=== PATIENT | male | born 1960 | race African-American/Black ===

== ENCOUNTER 2018-12-15 17:57 | Inpatient (IN) | payer OTHER ==
--- NOTE | 2018-12-16 01:06 | HP ---
CIWA Score - Admission Criteria [facility] Guidelines: Admission for Medically Managed Detox: Requires at least one of the followin. CIWA greater than 12 2. Seizures within the past 24 hours 3. Delirium tremens within the past 24 hours 4. Hallucinations within the past 24 hours 5. Acute intervention needed for co occurring medical disorder 6. Acute intervention needed for co occurring psychiatric disorder 7. Severe withdrawal that cannot be handled at a lower level of care (continued vomiting, continued diarrhea, abnormal vital signs) requiring intravenous medication and/or fluids 8. Admission ROS [facility] Chief Complaint: SEEKING REHAB AFTER DETOX Allergies/Adverse Reactions: Allergies Allergy/AdvReac Type Severity Reaction Status Date / Time No Known Allergies Allergy Verified 12/15/18 23:46 History of Present Illness: 58 Y.O MALE WITH ALCOHOL AND COCAINE DEP HERE FOR DETOX. CLIENT IS REFERRED BY [facility] AFTER BEING HOSPITALIZED FOR C.P AND DETOX. HE HAS SINCE BEEN MEDICALLY CLEARED AND COMPLETED DETOX. DISCHARGE TODAY. DRUG HX/O SINCE THE AGE OF 16. REPORTS DAILY USE OF ALCOHOL, CRACK/COCAINE. LAST USE 1 WEEK AGO. REPORT LONGEST CLEAN TIME 7 YEARS RELAPSING 5 MONTHS AGO. DENIES SEIZURES, BLACKOUTS, DT'S, SI/HI/AVH. LIVES IN [facility] RESIDENTIAL, UNEMPLOYED, DENIES LEGALS Exam Limitations: No Limitations - Ebola screening Have you traveled outside of the country in the last 21 days: No (N) Have you had contact with anyone from an Ebola affected area: No Do you have a fever: No - Review of Systems Constitutional: No Symptoms Reported EENT: reports: Blurred Vision (GLASSES FR BOTH DISTANCE AND READING), Dental Problems (MISSING TEETH) Respiratory: reports: No Symptoms reported Cardiac: reports: No Symptoms Reported GI: reports: No Symptoms Reported : reports: No Symptoms Reported Musculoskeletal: reports: Joint Pain (R/T OA) Integumentary: reports: No Symptoms Reported Neuro: reports: No Symptoms reported Endocrine: reports: No Symptoms Reported Hematology: reports: No Symptoms Reported Psychiatric: reports: Orientated x3, Anxious, Depressed (DENIES SI) Other Systems: Reviewed and Negative Patient History - Patient Medical History Hx Anemia: Yes Hx Asthma: No Hx Chronic Obstructive Pulmonary Disease (COPD): No Hx Cancer: No Hx Cardiac Disorders: No Hx Congestive Heart Failure: Yes Hx Hypertension: Yes Hx Hypercholesterolemia: No Hx Pacemaker: Yes (ICD) HX Cerebrovascular Accident: No Hx Seizures: No Hx Dementia: No Hx Diabetes: No Hx Gastrointestinal Disorders: Yes (GERD) Hx Liver Disease: No Hx Genitourinary Disorders: Yes (BPH) Hx Sexually Transmitted Disorders: No Hx Renal Disease (ESRD): No Hx Thyroid Disease: No Hx Human Immunodeficiency Virus (HIV): No Hx Hepatitis C: No Hx Depression: Yes Hx Suicide Attempt: No Hx Bipolar Disorder: No Hx Schizophrenia: No Other Medical History: DENIES - Patient Surgical History Past Surgical History: Yes Other Surgical History: ICD TO LEFT CHEST WALL Anesthesia Reaction: No - PPD History Previous Implant?: Yes Documented Results: Negative w/o proof Implanted On Prior [facility] Admission?: No PPD to be Administered?: Yes - Smoking Cessation Smoking history: Never smoked Have you smoked in the past 12 months: No - Substance & Tx. History Hx Alcohol Use: Yes Hx Substance Use: Yes Substance Use Type: Alcohol, Cocaine, Marijuana Hx Substance Use Treatment: Yes ([facility]) - Substances abused Alcohol Substance route: Oral Frequency: Daily Amount used: 5 to 10 22 ounces of beer Age of first use: 16 Date of last use: 12/10/18 Crack Substance route: Smoking Frequency: Daily Amount used: 50 to 200 dollars Age of first use: 36 Date of last use: 12/10/18 Marijuana/Hashish Substance route: Smoking Frequency: 3-6 times per week Amount used: 1 bag Age of first use: 18 Date of last use: 12/10/18 Cocaine Substance route: Smoking Frequency: Daily Amount used: 50 to 200 dollars Age of first use: 36 Date of last use: 12/10/18 Family Disease History - Family Disease History Family History: Denies Admission Physical Exam [facility] - Vital Signs Vital Signs: Vital Signs - 24 hr 12/15/18 12/16/18 23:44 00:55 Temperature 98.1 F 98.1 F Pulse Rate 85 85 Respiratory 20 20 Rate Blood Pressure 132/75 132/75 - Physical General Appearance: Yes: Tremorous (FELT), Anxious HEENTM: Yes: EOMI, Normocephalic, Normal Voice, KENNEDY, Pharynx Normal, Other ( EYE GLASSES) Respiratory: Yes: Chest Non-Tender, Lungs Clear, Normal Breath Sounds, No Respiratory Distress, No Accessory Muscle Use Neck: Yes: No masses,lesions,Nodules, Supple, Trachea in good position Breast: Yes: Breasts Symetrical Cardiology: Yes: Regular Rhythm, Regular Rate, S1, S2, Other (L C/E AICD) Abdominal: Yes: Normal Bowel Sounds, Non Tender, Soft Genitourinary: Yes: Within Normal Limits (NO C/O) Back: Yes: Normal Inspection Musculoskeletal: Yes: full range of Motion, Gait Steady Extremities: Yes: Normal Range of Motion, Non-Tender, Tremors Neurological: Yes: Fully Oriented, Alert, Motor Strength 5/5 Integumentary: Yes: Dry, Warm Lymphatic: Yes: Within Normal Limits - Diagnostic (1) Uncomplicated alcohol dependence Current Visit: Yes Status: Acute (2) Cocaine dependence, uncomplicated Current Visit: Yes Status: Acute (3) Cannabis dependence, uncomplicated Current Visit: Yes Status: Acute (4) HTN (hypertension) Current Visit: Yes Status: Chronic Qualifiers: Hypertension type: essential hypertension Qualified Code(s): I10 - Essential (primary) hypertension (5) CHF (congestive heart failure) Current Visit: Yes Status: Chronic Qualifiers: Heart failure chronicity: unspecified (6) Psychiatric disorder Current Visit: Yes Status: Chronic Comment: DEPRESSION (7) AICD (automatic cardioverter/defibrillator) present Current Visit: Yes Status: Acute Comment: LEFT C/W. LAST CHECKED A WEEK AGO (8) History of anemia Current Visit: Yes Status: Chronic Cleared for Admission [facility] - Detox or Rehab Detox Regimen/Protocol: Not Applicable Claeared for Rehab Admission: Yes Urine Drug Screen - Test Device Lot number: [id number] Expiration date: 09/17/20 - Control Is test valid?: Yes - Results Urine drug screen results: BZO-Benzodiazepines Inpatient Rehab Admission - Rehab Decision to Admit Inpatient rehab admission?: Yes - Initial Determination Are CD services needed?: Yes Free of communicable disease: Yes Not in need of hospitalization: Yes - Rehab Admission Criteria Previous failed treatment: Yes Poor recovery environment: Yes Comorbidities: Yes Lacks judgement: No Patient is meeting Inpatient Rehab admission criteria:: Yes
[2018-12-16] MEDS ORDERED: ACETAMINOPHEN 325 MG TABLET (FP) PO PRN (01:13)
[2018-12-16] MEDS ORDERED: P-EPHED 60MG/TRIPROLIDI 2.5MG TABLET PO PRN (01:13)
[2018-12-16] MEDS ORDERED: guaiFENesin 200 MG/10 ML 10 ML UNIT-DOSE CUPS PO PRN (01:13)
[2018-12-16] MEDS ORDERED: hydrOXYzine PAMOATE 50 MG CAPSULE (FP) PO PRN (01:13)
[2018-12-16] MEDS ORDERED: LOPERAMIDE HCL 2 MG CAPSULE PO PRN (01:13)
[2018-12-16] MEDS ORDERED: MENTHOL/PHENOL 1 EACH UD MM PRN (01:13)
[2018-12-16] MEDS ORDERED: MAGNESIUM CITRATE 300 ML BOTTLE PO PRN (01:13)
[2018-12-16] MEDS ORDERED: MAGNESIUM HYDROX 2400MG/30ML ORAL SUSPENSION 30 ML CUP PO PRN (01:13)
[2018-12-16] MEDS: PANTOPRAZOLE 40 MG TABLET (FP) PO SCH (06:07)
[2018-12-16] MEDS: TAMSULOSIN HCL 0.4 MG CAP PO SCH (09:30)
[2018-12-16] MEDS: ASPIRIN 81 MG CHEWABLE TABLETS PO SCH (10:03)
[2018-12-16] MEDS: PRENATAL VITAMINS W/ FOLIC ACID TABLET (FP) PO SCH (10:03)
[2018-12-16] MEDS: MAG HYDROX/AL HYDROX/SIMETH 30 ML UNIT-DOSE CUP PO PRN ×2 (10:05→21:19)
--- NOTE | 2018-12-16 10:34 | EKG ---
Test Reason : Blood Pressure : / mmHG Vent. Rate : 085 BPM Atrial Rate : 085 BPM P-R Int : 154 ms QRS Dur : 104 ms QT Int : 410 ms P-R-T Axes : 071 -06 022 degrees QTc Int : 487 ms NORMAL SINUS RHYTHM POSSIBLE LEFT ATRIAL ENLARGEMENT LEFT VENTRICULAR HYPERTROPHY CANNOT RULE OUT SEPTAL INFARCT , AGE UNDETERMINED ABNORMAL ECG NO PREVIOUS ECGS AVAILABLE Confirmed by EDILMA WORLEY MD ([id number]) on 12/16/2018 10:34:04 AM Referred By: [facility]AO Confirmed By:EDILMA WORLEY MD
[2018-12-16] MEDS: CARVEDILOL 25 MG TABLET (FP) PO SCH (10:40)
[2018-12-16] MEDS: LOSARTAN POTASSIUM 25 MG TABLET PO SCH (10:41)
[2018-12-16] MEDS: SPIRONOLACTONE 25 MG TABLET (FP) PO SCH (10:41)
--- NOTE | 2018-12-16 11:28 | CONSULT ---
[facility] Psychiatric Consult - Data Date of interview: 12/16/18 Admission source: [facility] detox Identifying data: Mr Santa is a 58 years old Black male living as , father of 3 children, unemployed receiving SSD, homeless seeking rehab treatment for alcohol, cocaine and cannabis Substance Abuse History: Reports history of alcohol, cocaine and marijuana. Refer to addiction counselor's summary for further information Medical History: Significant for thalassemia, hypertension, congestive heart failure, GERD, BPH and history of ICD implantation. Psychiatric History: Reports that his first psychiatric contact was in [address] [facility] for inpatient rehab. He was diagnosed with Schizoaffective Disorder and prescribed Seroquel 200 mg/bid and Wellbutrin(dose unknown). Reports receiving outpatient psychiatric treatment at [facility] and he is prescribed Seroquel 200 mg.bid, Buspar 5 mg/bid and Klonopin 0.5 mg/hs. Denies previous psychiatric hospitalization or suicidal attempt. At present, denies experiencing psychotic, manic symptoms, S/H ideations. However, reports feeling depressed, anxious and sleeping poorly Physical/Sexual Abuse/Trauma History: Denies history of emotional, physical or sexual abuse as well as DV relationship. Additional Comment: Reports history of multiple previous misdemear arrests to provide for his habit. No probation currently Mental Status Exam - Mental Status Exam Alert and Oriented to: Time, Place Cognitive Function: Fair Patient Appearance: Disheveled Mood: Depressed, Anxious Affect: Appropriate Patient Behavior: Cooperative Speech Pattern: Clear Voice Loudness: Normal Thought Process: Intact, Goal Oriented Thought Disorder: Not Present Hallucinations: Denies Suicidal Ideation: Denies Homicidal Ideation: Denies Insight/Judgement: Fair Appetite: Good Muscle strength/Tone: Normal Gait/Station: Normal Psychiatric Findings - Problem List ([place] 1, 2,3) (1) Schizoaffective disorder Current Visit: Yes Status: Chronic (2) Substance induced mood disorder Current Visit: Yes Status: Acute (3) Substance-induced sleep disorder Current Visit: Yes Status: Acute (4) Alcohol dependence Current Visit: Yes Status: Acute (5) Cocaine dependence Current Visit: Yes Status: Acute (6) Cannabis dependence Current Visit: Yes Status: Acute (7) CHF (congestive heart failure) Current Visit: Yes Status: Chronic Qualifiers: Heart failure chronicity: unspecified (8) HTN (hypertension) Current Visit: Yes Status: Chronic Qualifiers: Hypertension type: essential hypertension Qualified Code(s): I10 - Essential (primary) hypertension (9) History of anemia Current Visit: Yes Status: Chronic (10) AICD (automatic cardioverter/defibrillator) present Current Visit: Yes Status: Chronic Comment: LEFT C/W. LAST CHECKED A WEEK AGO (11) CHF (congestive heart failure) Current Visit: Yes Status: Chronic - Initial Treatment Plan Initial Treatment Plan: 1) Continue Seroquel 200 mg po BID and Buspar 5 mg po BID. 2) Continue inpatient rehabilitation
[2018-12-16 11:44] LABS: URINE APPEARANCE CLEAR; URINE BILIRUBIN NEGATIVE (NEGATIVE); URINE COLOR YELLOW; URINE GLUCOSE (UA) NEGATIVE (NEGATIVE); URINE KETONE NEGATIVE (NEGATIVE); URINE LEUK ESTERASE NEGATIVE (NEGATIVE); URINE NITRITE NEGATIVE (NEGATIVE); URINE PROTEIN NEGATIVE (NEGATIVE); URINE UROBILINOGEN 0.2 mg/dL (0.2-1.0)
[2018-12-16] MEDS ORDERED: QUEtiapine FUMARATE 200 MG TABLET PO SCH (12:00)
[2018-12-16] MEDS: QUEtiapine FUMARATE 100 MG TABLET (FP) PO SCH ×2 (14:20→21:19)
[2018-12-16] MEDS: busPIRone HCL 5 MG TABLET PO SCH ×2 (14:21→21:19)
[2018-12-16 14:30] LABS: HEMATOCRIT 36.6 % (35.4-49); HEMOGLOBIN 11.3 GM/dL (11.7-16.9); MCH 21.5 pg (25.7-33.7); MEAN CELL VOLUME 69.2 fl (80-96); MEAN PLT VOLUME 9.1 fl (7.5-11.1); PLATELET COUNT 234 K/MM3 (134-434); RBC 5.28 M/mm3 (4.00-5.60); RDW 16.4 % (11.9-15.9); WHITE BLOOD COUNT 4.7 K/mm3 (4.0-10.0)
[2018-12-16 14:37] LABS: ALBUMIN 3.8 g/dl (3.4-5.0); BILIRUBIN,TOTAL 0.2 mg/dL (0.2-1); BLOOD UREA NITROGEN 16.9 mg/dL (7-18); CALCIUM 9.7 mg/dL (8.5-10.1); CREATININE 0.9 mg/dL (0.55-1.3); POTASSIUM 4.4 mmol/L (3.5-5.1)
[2018-12-16] MEDS: ATORVASTATIN CA 40 MG TABLET (FP) PO SCH (21:19)
[2018-12-16] MEDS: THIAMINE HCL 100 MG TABLET (FP) PO SCH (21:19)
[2018-12-17] MEDS: PANTOPRAZOLE 40 MG TABLET (FP) PO SCH (06:20)
[2018-12-17] MEDS: MAG HYDROX/AL HYDROX/SIMETH 30 ML UNIT-DOSE CUP PO PRN ×2 (06:22→21:27)
[2018-12-17] MEDS: TAMSULOSIN HCL 0.4 MG CAP PO SCH (08:47)
[2018-12-17] MEDS ORDERED: PT OWN MED DRAWER 7, Y5N ONE (09:09)
--- NOTE | 2018-12-17 09:41 | PN ---
[facility] Progress Note Note: Patient c/o itching and mild rash to feet and in between toes. Tinactin cream ordered. Vital Signs Temperature 98.6 F 12/17/18 07:03 Pulse Rate 90 12/17/18 07:03 Respiratory Rate 18 12/17/18 07:03 Blood Pressure 116/75 12/17/18 07:03 O2 Sat by Pulse Oximetry (%)
[2018-12-17] MEDS: SPIRONOLACTONE 25 MG TABLET (FP) PO SCH (09:47)
[2018-12-17] MEDS: ASPIRIN 81 MG CHEWABLE TABLETS PO SCH (09:47)
[2018-12-17] MEDS: busPIRone HCL 5 MG TABLET PO SCH ×2 (09:47→21:24)
[2018-12-17] MEDS: PRENATAL VITAMINS W/ FOLIC ACID TABLET (FP) PO SCH (09:47)
[2018-12-17] MEDS: LOSARTAN POTASSIUM 25 MG TABLET PO SCH (09:48)
[2018-12-17] MEDS: CARVEDILOL 25 MG TABLET (FP) PO SCH (09:48)
[2018-12-17] MEDS: QUEtiapine FUMARATE 100 MG TABLET (FP) PO SCH ×2 (09:48→21:24)
[2018-12-17] MEDS: TOLNAFTATE 1% CREAM 15 GM TUBE TP SCH ×2 (10:13→21:24)
--- NOTE | 2018-12-17 14:38 | PN ---
[facility] Progress Note Note: Patient complains of feeling lethargic after taking Seroquel 100 mg in the morning. Requests that morning Seroquel dosage be reduced to 50 mg
[2018-12-17] MEDS ORDERED: BENZOCAINE 20 % GEL TUBE MM PRN (16:28)
[2018-12-17] MEDS: THIAMINE HCL 100 MG TABLET (FP) PO SCH (21:24)
[2018-12-17] MEDS: AMOXICILLIN 500 MG CAPSULE (FP) PO SCH (21:24)
[2018-12-17] MEDS: ATORVASTATIN CA 40 MG TABLET (FP) PO SCH (21:24)
[2018-12-17] MEDS: MELATONIN 5 MG TABLETS PO PRN (21:25)
[2018-12-18] MEDS: AMOXICILLIN 500 MG CAPSULE (FP) PO SCH ×3 (05:52→21:34)
[2018-12-18] MEDS: MAG HYDROX/AL HYDROX/SIMETH 30 ML UNIT-DOSE CUP PO PRN ×3 (05:53→22:07)
[2018-12-18] MEDS: PANTOPRAZOLE 40 MG TABLET (FP) PO SCH (07:00)
[2018-12-18] MEDS: TAMSULOSIN HCL 0.4 MG CAP PO SCH (08:35)
[2018-12-18] MEDS ORDERED: PT OWN MED DRAWER 7, Y5N ONE (08:47)
[2018-12-18] MEDS: ASPIRIN 81 MG CHEWABLE TABLETS PO SCH (09:45)
[2018-12-18] MEDS: QUEtiapine FUMARATE 50 MG TABLET PO SCH (09:45)
[2018-12-18] MEDS: CARVEDILOL 25 MG TABLET (FP) PO SCH (09:46)
[2018-12-18] MEDS: SPIRONOLACTONE 25 MG TABLET (FP) PO SCH (09:46)
[2018-12-18] MEDS: LOSARTAN POTASSIUM 25 MG TABLET PO SCH (09:46)
[2018-12-18] MEDS: PRENATAL VITAMINS W/ FOLIC ACID TABLET (FP) PO SCH (09:46)
[2018-12-18] MEDS: busPIRone HCL 5 MG TABLET PO SCH ×2 (09:46→21:34)
[2018-12-18] MEDS: TOLNAFTATE 1% CREAM 15 GM TUBE TP SCH ×2 (09:47→23:00)
--- NOTE | 2018-12-18 19:45 | PN ---
S Progress Note Note: Late entry: Visit and examination performed on 12/17/18 4:25pm Patient seen for c/o toothache. Ros/cc: Patient c/o right upper molar pain, level 6/10, dull ache. Patient states he has had problem with tooth x months but now feels like tooth is more painful and loose. Patient denies fever, headache, earache and sore throat. PE: + tooth decay, right upper molar intact, +redness and small sore to surrounding gums. No bleeding or exudate present. A/P toothache/infection will order oragel for pain start amoxicillin 500mg tid for potential infection monitor clinically if sx worsen, refer for dental consult
[2018-12-18] MEDS: ATORVASTATIN CA 40 MG TABLET (FP) PO SCH (21:33)
[2018-12-18] MEDS: THIAMINE HCL 100 MG TABLET (FP) PO SCH (21:34)
[2018-12-18] MEDS: QUEtiapine FUMARATE 100 MG TABLET (FP) PO SCH (21:34)
[2018-12-19] MEDS: AMOXICILLIN 500 MG CAPSULE (FP) PO SCH ×3 (06:00→21:28)
[2018-12-19] MEDS: PANTOPRAZOLE 40 MG TABLET (FP) PO SCH (06:00)
[2018-12-19] MEDS: QUEtiapine FUMARATE 50 MG TABLET PO SCH (10:08)
[2018-12-19] MEDS: PRENATAL VITAMINS W/ FOLIC ACID TABLET (FP) PO SCH (10:08)
[2018-12-19] MEDS: ASPIRIN 81 MG CHEWABLE TABLETS PO SCH (10:08)
[2018-12-19] MEDS: SPIRONOLACTONE 25 MG TABLET (FP) PO SCH (10:08)
[2018-12-19] MEDS: busPIRone HCL 5 MG TABLET PO SCH ×2 (10:08→21:29)
[2018-12-19] MEDS: CARVEDILOL 25 MG TABLET (FP) PO SCH (10:08)
[2018-12-19] MEDS: TAMSULOSIN HCL 0.4 MG CAP PO SCH (10:08)
[2018-12-19] MEDS: LOSARTAN POTASSIUM 25 MG TABLET PO SCH (10:08)
[2018-12-19] MEDS: TOLNAFTATE 1% CREAM 15 GM TUBE TP SCH ×2 (10:13→21:32)
[2018-12-19] MEDS: ATORVASTATIN CA 40 MG TABLET (FP) PO SCH (21:28)
[2018-12-19] MEDS: QUEtiapine FUMARATE 100 MG TABLET (FP) PO SCH (21:28)
[2018-12-19] MEDS: THIAMINE HCL 100 MG TABLET (FP) PO SCH (21:29)
[2018-12-19] MEDS ORDERED: PT OWN MED DRAWER 7, Y5N ONE (21:30)
[2018-12-19] MEDS: MAG HYDROX/AL HYDROX/SIMETH 30 ML UNIT-DOSE CUP PO PRN (21:33)
[2018-12-20] MEDS: PANTOPRAZOLE 40 MG TABLET (FP) PO SCH (06:02)
[2018-12-20] MEDS: AMOXICILLIN 500 MG CAPSULE (FP) PO SCH ×3 (06:02→21:20)
[2018-12-20] MEDS: TAMSULOSIN HCL 0.4 MG CAP PO SCH (08:17)
[2018-12-20] MEDS: LOSARTAN POTASSIUM 25 MG TABLET PO SCH (09:32)
[2018-12-20] MEDS: PRENATAL VITAMINS W/ FOLIC ACID TABLET (FP) PO SCH (09:32)
[2018-12-20] MEDS: CARVEDILOL 25 MG TABLET (FP) PO SCH (09:32)
[2018-12-20] MEDS: SPIRONOLACTONE 25 MG TABLET (FP) PO SCH (09:32)
[2018-12-20] MEDS: QUEtiapine FUMARATE 50 MG TABLET PO SCH ×2 (09:36→21:21)
[2018-12-20] MEDS: busPIRone HCL 5 MG TABLET PO SCH ×2 (09:36→21:21)
[2018-12-20] MEDS: ASPIRIN 81 MG CHEWABLE TABLETS PO SCH (09:36)
[2018-12-20] MEDS: TOLNAFTATE 1% CREAM 15 GM TUBE TP SCH ×2 (09:37→21:21)
--- NOTE | 2018-12-20 11:38 | PN ---
[facility] Progress Note Note: patient home medications include metformin. Patient states that it was prescribed several years ago when he was pre-diabetic. He is also on seroquel. At the present time his BGMs are within normal range. Will continue to hold the metformin. If BGMs remain in normal range, will consider d/c fingersticks.
--- NOTE | 2018-12-20 14:15 | PN ---
[facility] Progress Note Note: Patient requests to have Seroquel 50 mg/day & 150 mg/hs. He is currently ordered 50 mg/day & 100 mg/hs. Prior to admission he was on Seroquel 100 mg/ bid. Will reorder Seroquel 50 mg/day & 150 mg/hs
[2018-12-20] MEDS: ARTIFICIAL TEARS (POLYVINYL ALCOHOL) OPTH DROPS OU PRN (16:41)
[2018-12-20] MEDS: THIAMINE HCL 100 MG TABLET (FP) PO SCH (21:20)
[2018-12-20] MEDS: ATORVASTATIN CA 40 MG TABLET (FP) PO SCH (21:20)
[2018-12-21] MEDS: PANTOPRAZOLE 40 MG TABLET (FP) PO SCH (06:22)
[2018-12-21] MEDS: AMOXICILLIN 500 MG CAPSULE (FP) PO SCH ×3 (06:22→21:24)
[2018-12-21] MEDS: TAMSULOSIN HCL 0.4 MG CAP PO SCH (07:43)
[2018-12-21] MEDS: ASPIRIN 81 MG CHEWABLE TABLETS PO SCH (09:43)
[2018-12-21] MEDS: SPIRONOLACTONE 25 MG TABLET (FP) PO SCH (09:43)
[2018-12-21] MEDS: busPIRone HCL 5 MG TABLET PO SCH ×2 (09:43→21:24)
[2018-12-21] MEDS: LOSARTAN POTASSIUM 25 MG TABLET PO SCH (09:43)
[2018-12-21] MEDS: CARVEDILOL 25 MG TABLET (FP) PO SCH (09:43)
[2018-12-21] MEDS: QUEtiapine FUMARATE 50 MG TABLET PO SCH ×2 (09:44→21:24)
[2018-12-21] MEDS: PRENATAL VITAMINS W/ FOLIC ACID TABLET (FP) PO SCH (09:44)
[2018-12-21] MEDS: ARTIFICIAL TEARS (POLYVINYL ALCOHOL) OPTH DROPS OU PRN ×2 (09:44→16:32)
[2018-12-21] MEDS: TOLNAFTATE 1% CREAM 15 GM TUBE TP SCH ×2 (10:20→21:25)
[2018-12-21] MEDS: ATORVASTATIN CA 40 MG TABLET (FP) PO SCH (21:24)
[2018-12-21] MEDS: THIAMINE HCL 100 MG TABLET (FP) PO SCH (21:24)
[2018-12-22] MEDS ORDERED: PT OWN MED DRAWER 7, Y5N ONE ×2 (04:14→08:55)
[2018-12-22] MEDS: PANTOPRAZOLE 40 MG TABLET (FP) PO SCH (05:59)
[2018-12-22] MEDS: AMOXICILLIN 500 MG CAPSULE (FP) PO SCH ×3 (05:59→21:38)
[2018-12-22] MEDS: TAMSULOSIN HCL 0.4 MG CAP PO SCH (08:57)
[2018-12-22] MEDS: QUEtiapine FUMARATE 50 MG TABLET PO SCH ×2 (09:57→21:38)
[2018-12-22] MEDS: SPIRONOLACTONE 25 MG TABLET (FP) PO SCH (09:57)
[2018-12-22] MEDS: ASPIRIN 81 MG CHEWABLE TABLETS PO SCH (09:57)
[2018-12-22] MEDS: TOLNAFTATE 1% CREAM 15 GM TUBE TP SCH ×2 (09:57→21:38)
[2018-12-22] MEDS: LOSARTAN POTASSIUM 25 MG TABLET PO SCH (09:57)
[2018-12-22] MEDS: PRENATAL VITAMINS W/ FOLIC ACID TABLET (FP) PO SCH (09:57)
[2018-12-22] MEDS: CARVEDILOL 25 MG TABLET (FP) PO SCH (09:57)
[2018-12-22] MEDS: busPIRone HCL 5 MG TABLET PO SCH ×2 (09:58→21:37)
[2018-12-22] MEDS: ARTIFICIAL TEARS (POLYVINYL ALCOHOL) OPTH DROPS OU PRN (19:29)
[2018-12-22] MEDS: ATORVASTATIN CA 40 MG TABLET (FP) PO SCH (21:37)
[2018-12-22] MEDS: THIAMINE HCL 100 MG TABLET (FP) PO SCH (21:38)
[2018-12-23] MEDS: AMOXICILLIN 500 MG CAPSULE (FP) PO SCH ×3 (05:51→21:29)
[2018-12-23] MEDS: PANTOPRAZOLE 40 MG TABLET (FP) PO SCH (06:54)
[2018-12-23] MEDS: LOSARTAN POTASSIUM 25 MG TABLET PO SCH (09:26)
[2018-12-23] MEDS: SPIRONOLACTONE 25 MG TABLET (FP) PO SCH (09:26)
[2018-12-23] MEDS: ASPIRIN 81 MG CHEWABLE TABLETS PO SCH (09:26)
[2018-12-23] MEDS: QUEtiapine FUMARATE 50 MG TABLET PO SCH ×2 (09:26→21:30)
[2018-12-23] MEDS: CARVEDILOL 25 MG TABLET (FP) PO SCH (09:26)
[2018-12-23] MEDS ORDERED: PT OWN MED DRAWER 7, Y5N ONE ×2 (09:28→20:40)
[2018-12-23] MEDS: TAMSULOSIN HCL 0.4 MG CAP PO SCH (09:29)
[2018-12-23] MEDS: busPIRone HCL 5 MG TABLET PO SCH ×2 (10:38→21:30)
[2018-12-23] MEDS: TOLNAFTATE 1% CREAM 15 GM TUBE TP SCH ×2 (10:38→22:19)
[2018-12-23] MEDS: PRENATAL VITAMINS W/ FOLIC ACID TABLET (FP) PO SCH (10:38)
[2018-12-23] MEDS: ARTIFICIAL TEARS (POLYVINYL ALCOHOL) OPTH DROPS OU PRN ×2 (14:58→21:32)
[2018-12-23] MEDS: THIAMINE HCL 100 MG TABLET (FP) PO SCH (21:30)
[2018-12-23] MEDS: ATORVASTATIN CA 40 MG TABLET (FP) PO SCH (21:30)
[2018-12-23] MEDS: MELATONIN 5 MG TABLETS PO PRN (21:30)
[2018-12-24] MEDS: PANTOPRAZOLE 40 MG TABLET (FP) PO SCH (06:02)
[2018-12-24] MEDS: AMOXICILLIN 500 MG CAPSULE (FP) PO SCH ×2 (06:02→14:27)
[2018-12-24] MEDS: SPIRONOLACTONE 25 MG TABLET (FP) PO SCH (07:10)
[2018-12-24] MEDS: IBUPROFEN 400 MG TABLET (FP) PO PRN (07:17)
[2018-12-24] MEDS: TAMSULOSIN HCL 0.4 MG CAP PO SCH (08:45)
[2018-12-24] MEDS: QUEtiapine FUMARATE 50 MG TABLET PO SCH ×2 (10:00→21:28)
[2018-12-24] MEDS: ASPIRIN 81 MG CHEWABLE TABLETS PO SCH (10:00)
[2018-12-24] MEDS: busPIRone HCL 5 MG TABLET PO SCH ×2 (10:00→21:28)
[2018-12-24] MEDS: PRENATAL VITAMINS W/ FOLIC ACID TABLET (FP) PO SCH (10:00)
[2018-12-24] MEDS: CARVEDILOL 25 MG TABLET (FP) PO SCH (10:00)
[2018-12-24] MEDS: LOSARTAN POTASSIUM 25 MG TABLET PO SCH (10:01)
[2018-12-24] MEDS: TOLNAFTATE 1% CREAM 15 GM TUBE TP SCH ×2 (10:04→21:29)
[2018-12-24] MEDS: ARTIFICIAL TEARS (POLYVINYL ALCOHOL) OPTH DROPS OU PRN (10:04)
--- NOTE | 2018-12-24 10:22 | PN ---
[facility] Progress Note Note: Patient seen for c/o numbness to right lower leg-barclay area- and LBP. Patient states he has hx of sciatica and treated in past with Gabapentin 100mg tid which he states offered minor relief. Patient states flexeril and lidocaine patch also ineffective for pain relief. Patient denies any recent injuries and/ or falls. Laboratory Tests 12/16/18 12/16/18 12/16/18 06:46 08:00 09:30 WBC RBC Hgb Hct MCV MCH MCHC RDW Plt Count MPV Sodium 138 Potassium 4.4 Chloride 102 Carbon Dioxide 28 Anion Gap 8 BUN 16.9 Creatinine 0.9 Est GFR (CKD-EPI)AfAm 109.50 Est GFR (CKD-EPI)NonAf 94.48 POC Glucometer 98 Random Glucose 97 Calcium 9.7 Total Bilirubin 0.2 AST 30 ALT 26 Alkaline Phosphatase 71 Total Protein 7.0 Albumin 3.8 Urine Color Yellow Urine Appearance Clear Urine pH 8.0 Ur Specific [place] 1.008 L Urine Protein Negative Urine Glucose (UA) Negative Urine Ketones Negative Urine Blood Negative Urine Nitrite Negative Urine Bilirubin Negative Urine Urobilinogen 0.2 Ur Leukocyte Esterase Negative RPR Titer TB (QFT) Incubation TB Test (QFT) Nil TB Test (QFT) Mitogen TB Test (QFT) Antigen TB Test (QFT) TB Positive Criteria 12/16/18 12/16/18 12/16/18 09:30 09:30 09:35 WBC 4.7 RBC 5.28 Hgb 11.3 L Hct 36.6 MCV 69.2 L MCH 21.5 L MCHC 31.0 L RDW 16.4 H Plt Count 234 MPV 9.1 Sodium Potassium Chloride Carbon Dioxide Anion Gap BUN Creatinine Est GFR (CKD-EPI)AfAm Est GFR (CKD-EPI)NonAf POC Glucometer Random Glucose Calcium Total Bilirubin AST ALT Alkaline Phosphatase Total Protein Albumin Urine Color Urine Appearance Urine pH Ur Specific [place] Urine Protein Urine Glucose (UA) Urine Ketones Urine Blood Urine Nitrite Urine Bilirubin Urine Urobilinogen Ur Leukocyte Esterase RPR Titer Nonreactive TB (QFT) Incubation TB Test (QFT) Nil 0.02 TB Test (QFT) Mitogen >10.00 TB Test (QFT) Antigen 0.01 TB Test (QFT) Negative TB Positive Criteria 12/16/18 12/17/18 12/17/18 16:48 06:28 16:43 WBC RBC Hgb Hct MCV MCH MCHC RDW Plt Count MPV Sodium Potassium Chloride Carbon Dioxide Anion Gap BUN Creatinine Est GFR (CKD-EPI)AfAm Est GFR (CKD-EPI)NonAf POC Glucometer 127 114 93 Random Glucose Calcium Total Bilirubin AST ALT Alkaline Phosphatase Total Protein Albumin Urine Color Urine Appearance Urine pH Ur Specific [place] Urine Protein Urine Glucose (UA) Urine Ketones Urine Blood Urine Nitrite Urine Bilirubin Urine Urobilinogen Ur Leukocyte Esterase RPR Titer TB (QFT) Incubation TB Test (QFT) Nil TB Test (QFT) Mitogen TB Test (QFT) Antigen TB Test (QFT) TB Positive Criteria 12/18/18 12/18/18 12/19/18 05:51 16:48 06:00 WBC RBC Hgb Hct MCV MCH MCHC RDW Plt Count MPV Sodium Potassium Chloride Carbon Dioxide Anion Gap BUN Creatinine Est GFR (CKD-EPI)AfAm Est GFR (CKD-EPI)NonAf POC Glucometer 106 102 109 Random Glucose Calcium Total Bilirubin AST ALT Alkaline Phosphatase Total Protein Albumin Urine Color Urine Appearance Urine pH Ur Specific [place] Urine Protein Urine Glucose (UA) Urine Ketones Urine Blood Urine Nitrite Urine Bilirubin Urine Urobilinogen Ur Leukocyte Esterase RPR Titer TB (QFT) Incubation TB Test (QFT) Nil TB Test (QFT) Mitogen TB Test (QFT) Antigen TB Test (QFT) TB Positive Criteria 12/19/18 12/20/18 12/20/18 16:45 06:01 16:39 WBC RBC Hgb Hct MCV MCH MCHC RDW Plt Count MPV Sodium Potassium Chloride Carbon Dioxide Anion Gap BUN Creatinine Est GFR (CKD-EPI)AfAm Est GFR (CKD-EPI)NonAf POC Glucometer 110 106 124 Random Glucose Calcium Total Bilirubin AST ALT Alkaline Phosphatase Total Protein Albumin Urine Color Urine Appearance Urine pH Ur Specific [place] Urine Protein Urine Glucose (UA) Urine Ketones Urine Blood Urine Nitrite Urine Bilirubin Urine Urobilinogen Ur Leukocyte Esterase RPR Titer TB (QFT) Incubation TB Test (QFT) Nil TB Test (QFT) Mitogen TB Test (QFT) Antigen TB Test (QFT) TB Positive Criteria 12/21/18 12/21/18 12/22/18 06:21 16:30 05:59 WBC RBC Hgb Hct MCV MCH MCHC RDW Plt Count MPV Sodium Potassium Chloride Carbon Dioxide Anion Gap BUN Creatinine Est GFR (CKD-EPI)AfAm Est GFR (CKD-EPI)NonAf POC Glucometer 118 123 95 Random Glucose Calcium Total Bilirubin AST ALT Alkaline Phosphatase Total Protein Albumin Urine Color Urine Appearance Urine pH Ur Specific [place] Urine Protein Urine Glucose (UA) Urine Ketones Urine Blood Urine Nitrite Urine Bilirubin Urine Urobilinogen Ur Leukocyte Esterase RPR Titer TB (QFT) Incubation TB Test (QFT) Nil TB Test (QFT) Mitogen TB Test (QFT) Antigen TB Test (QFT) TB Positive Criteria 12/22/18 12/23/18 12/23/18 19:30 05:50 16:41 WBC RBC Hgb Hct MCV MCH MCHC RDW Plt Count MPV Sodium Potassium Chloride Carbon Dioxide Anion Gap BUN Creatinine Est GFR (CKD-EPI)AfAm Est GFR (CKD-EPI)NonAf POC Glucometer 125 111 151 Random Glucose Calcium Total Bilirubin AST ALT Alkaline Phosphatase Total Protein Albumin Urine Color Urine Appearance Urine pH Ur Specific [place] Urine Protein Urine Glucose (UA) Urine Ketones Urine Blood Urine Nitrite Urine Bilirubin Urine Urobilinogen Ur Leukocyte Esterase RPR Titer TB (QFT) Incubation TB Test (QFT) Nil TB Test (QFT) Mitogen TB Test (QFT) Antigen TB Test (QFT) TB Positive Criteria 12/24/18 06:03 WBC RBC Hgb Hct MCV MCH MCHC RDW Plt Count MPV Sodium Potassium Chloride Carbon Dioxide Anion Gap BUN Creatinine Est GFR (CKD-EPI)AfAm Est GFR (CKD-EPI)NonAf POC Glucometer 97 Random Glucose Calcium Total Bilirubin AST ALT Alkaline Phosphatase Total Protein Albumin Urine Color Urine Appearance Urine pH Ur Specific [place] Urine Protein Urine Glucose (UA) Urine Ketones Urine Blood Urine Nitrite Urine Bilirubin Urine Urobilinogen Ur Leukocyte Esterase RPR Titer TB (QFT) Incubation TB Test (QFT) Nil TB Test (QFT) Mitogen TB Test (QFT) Antigen TB Test (QFT) TB Positive Criteria Vital Signs Temperature 98.0 F 12/24/18 08:45 Pulse Rate 99 H 12/24/18 08:45 Respiratory Rate 18 12/24/18 08:45 Blood Pressure 111/77 12/24/18 08:45 O2 Sat by Pulse Oximetry (%) PE: alert and oriented x 3 skin warm and dry +perrla, eoms intact bl + mild tactile tenderness to ls spine ext full rom, no visible edema, amb ad saeid A/P Hx of sciatica peripheral neuropathic pain will continue apap/ibu prn start gabapentin 300mg bid patient advised to follow up with PCP after d/c for ongoing management monitor clinically
[2018-12-24] MEDS: GABAPENTIN 300 MG CAPSULE (FP) PO SCH ×2 (10:45→21:28)
[2018-12-24] MEDS: ATORVASTATIN CA 40 MG TABLET (FP) PO SCH (21:28)
[2018-12-24] MEDS: TETRAHYDROZOLINE HCL EYE DROPS OU SCH (21:28)
[2018-12-24] MEDS: THIAMINE HCL 100 MG TABLET (FP) PO SCH (21:29)
[2018-12-24] MEDS: MELATONIN 5 MG TABLETS PO PRN (22:05)
[2018-12-25] MEDS: PANTOPRAZOLE 40 MG TABLET (FP) PO SCH (06:30)
[2018-12-25] MEDS: SPIRONOLACTONE 25 MG TABLET (FP) PO SCH (06:30)
[2018-12-25] MEDS: TAMSULOSIN HCL 0.4 MG CAP PO SCH (07:42)
[2018-12-25] MEDS ORDERED: PT OWN MED DRAWER 7, Y5N ONE (08:51)
[2018-12-25] MEDS: LOSARTAN POTASSIUM 25 MG TABLET PO SCH (09:30)
[2018-12-25] MEDS: TETRAHYDROZOLINE HCL EYE DROPS OU SCH ×2 (09:30→21:18)
[2018-12-25] MEDS: ASPIRIN 81 MG CHEWABLE TABLETS PO SCH (09:30)
[2018-12-25] MEDS: QUEtiapine FUMARATE 50 MG TABLET PO SCH ×2 (09:31→21:19)
[2018-12-25] MEDS: PRENATAL VITAMINS W/ FOLIC ACID TABLET (FP) PO SCH (09:31)
[2018-12-25] MEDS: CARVEDILOL 25 MG TABLET (FP) PO SCH (09:31)
[2018-12-25] MEDS: TOLNAFTATE 1% CREAM 15 GM TUBE TP SCH ×2 (09:31→21:19)
[2018-12-25] MEDS: GABAPENTIN 300 MG CAPSULE (FP) PO SCH ×2 (09:31→21:18)
[2018-12-25] MEDS: busPIRone HCL 5 MG TABLET PO SCH ×2 (10:20→21:18)
[2018-12-25] MEDS: ATORVASTATIN CA 40 MG TABLET (FP) PO SCH (21:18)
[2018-12-25] MEDS: THIAMINE HCL 100 MG TABLET (FP) PO SCH (21:20)
[2018-12-25] MEDS: MELATONIN 5 MG TABLETS PO PRN (21:20)
[2018-12-26] MEDS: SPIRONOLACTONE 25 MG TABLET (FP) PO SCH (06:28)
[2018-12-26] MEDS: PANTOPRAZOLE 40 MG TABLET (FP) PO SCH (06:30)
[2018-12-26] MEDS: TAMSULOSIN HCL 0.4 MG CAP PO SCH (07:52)
[2018-12-26] MEDS: TOLNAFTATE 1% CREAM 15 GM TUBE TP SCH ×2 (09:11→21:26)
[2018-12-26] MEDS: GABAPENTIN 300 MG CAPSULE (FP) PO SCH ×2 (09:11→21:25)
[2018-12-26] MEDS: PRENATAL VITAMINS W/ FOLIC ACID TABLET (FP) PO SCH (09:11)
[2018-12-26] MEDS: TETRAHYDROZOLINE HCL EYE DROPS OU SCH ×2 (09:11→21:25)
[2018-12-26] MEDS: ASPIRIN 81 MG CHEWABLE TABLETS PO SCH (09:11)
[2018-12-26] MEDS: busPIRone HCL 5 MG TABLET PO SCH ×2 (09:11→21:25)
[2018-12-26] MEDS: QUEtiapine FUMARATE 50 MG TABLET PO SCH ×2 (09:11→21:26)
[2018-12-26] MEDS: CARVEDILOL 25 MG TABLET (FP) PO SCH (09:44)
[2018-12-26] MEDS: LOSARTAN POTASSIUM 25 MG TABLET PO SCH (09:44)
[2018-12-26] MEDS: ATORVASTATIN CA 40 MG TABLET (FP) PO SCH (21:25)
[2018-12-26] MEDS: THIAMINE HCL 100 MG TABLET (FP) PO SCH (21:26)
[2018-12-27] MEDS: SPIRONOLACTONE 25 MG TABLET (FP) PO SCH (05:57)
[2018-12-27] MEDS: PANTOPRAZOLE 40 MG TABLET (FP) PO SCH (06:59)
[2018-12-27] MEDS: TAMSULOSIN HCL 0.4 MG CAP PO SCH (08:45)
[2018-12-27] MEDS: CARVEDILOL 25 MG TABLET (FP) PO SCH (10:10)
[2018-12-27] MEDS: QUEtiapine FUMARATE 50 MG TABLET PO SCH ×2 (10:10→21:42)
[2018-12-27] MEDS: LOSARTAN POTASSIUM 25 MG TABLET PO SCH (10:10)
[2018-12-27] MEDS: TETRAHYDROZOLINE HCL EYE DROPS OU SCH ×2 (10:11→21:41)
[2018-12-27] MEDS: busPIRone HCL 5 MG TABLET PO SCH ×2 (10:11→21:42)
[2018-12-27] MEDS: PRENATAL VITAMINS W/ FOLIC ACID TABLET (FP) PO SCH (10:11)
[2018-12-27] MEDS: ASPIRIN 81 MG CHEWABLE TABLETS PO SCH (10:11)
[2018-12-27] MEDS: GABAPENTIN 300 MG CAPSULE (FP) PO SCH ×2 (10:11→21:42)
[2018-12-27] MEDS: TOLNAFTATE 1% CREAM 15 GM TUBE TP SCH ×2 (10:12→21:45)
--- NOTE | 2018-12-27 15:19 | PN ---
[facility] Progress Note Note: Laboratory Tests 12/16/18 12/16/18 12/16/18 06:46 08:00 09:30 WBC RBC Hgb Hct MCV MCH MCHC RDW Plt Count MPV Sodium 138 Potassium 4.4 Chloride 102 Carbon Dioxide 28 Anion Gap 8 BUN 16.9 Creatinine 0.9 Est GFR (CKD-EPI)AfAm 109.50 Est GFR (CKD-EPI)NonAf 94.48 POC Glucometer 98 Random Glucose 97 Calcium 9.7 Total Bilirubin 0.2 AST 30 ALT 26 Alkaline Phosphatase 71 Total Protein 7.0 Albumin 3.8 Urine Color Yellow Urine Appearance Clear Urine pH 8.0 Ur Specific [place] 1.008 L Urine Protein Negative Urine Glucose (UA) Negative Urine Ketones Negative Urine Blood Negative Urine Nitrite Negative Urine Bilirubin Negative Urine Urobilinogen 0.2 Ur Leukocyte Esterase Negative RPR Titer TB (QFT) Incubation TB Test (QFT) Nil TB Test (QFT) Mitogen TB Test (QFT) Antigen TB Test (QFT) TB Positive Criteria 12/16/18 12/16/18 12/16/18 09:30 09:30 09:35 WBC 4.7 RBC 5.28 Hgb 11.3 L Hct 36.6 MCV 69.2 L MCH 21.5 L MCHC 31.0 L RDW 16.4 H Plt Count 234 MPV 9.1 Sodium Potassium Chloride Carbon Dioxide Anion Gap BUN Creatinine Est GFR (CKD-EPI)AfAm Est GFR (CKD-EPI)NonAf POC Glucometer Random Glucose Calcium Total Bilirubin AST ALT Alkaline Phosphatase Total Protein Albumin Urine Color Urine Appearance Urine pH Ur Specific [place] Urine Protein Urine Glucose (UA) Urine Ketones Urine Blood Urine Nitrite Urine Bilirubin Urine Urobilinogen Ur Leukocyte Esterase RPR Titer Nonreactive TB (QFT) Incubation TB Test (QFT) Nil 0.02 TB Test (QFT) Mitogen >10.00 TB Test (QFT) Antigen 0.01 TB Test (QFT) Negative TB Positive Criteria 12/16/18 12/17/18 12/17/18 16:48 06:28 16:43 WBC RBC Hgb Hct MCV MCH MCHC RDW Plt Count MPV Sodium Potassium Chloride Carbon Dioxide Anion Gap BUN Creatinine Est GFR (CKD-EPI)AfAm Est GFR (CKD-EPI)NonAf POC Glucometer 127 114 93 Random Glucose Calcium Total Bilirubin AST ALT Alkaline Phosphatase Total Protein Albumin Urine Color Urine Appearance Urine pH Ur Specific [place] Urine Protein Urine Glucose (UA) Urine Ketones Urine Blood Urine Nitrite Urine Bilirubin Urine Urobilinogen Ur Leukocyte Esterase RPR Titer TB (QFT) Incubation TB Test (QFT) Nil TB Test (QFT) Mitogen TB Test (QFT) Antigen TB Test (QFT) TB Positive Criteria 12/18/18 12/18/18 12/19/18 05:51 16:48 06:00 WBC RBC Hgb Hct MCV MCH MCHC RDW Plt Count MPV Sodium Potassium Chloride Carbon Dioxide Anion Gap BUN Creatinine Est GFR (CKD-EPI)AfAm Est GFR (CKD-EPI)NonAf POC Glucometer 106 102 109 Random Glucose Calcium Total Bilirubin AST ALT Alkaline Phosphatase Total Protein Albumin Urine Color Urine Appearance Urine pH Ur Specific [place] Urine Protein Urine Glucose (UA) Urine Ketones Urine Blood Urine Nitrite Urine Bilirubin Urine Urobilinogen Ur Leukocyte Esterase RPR Titer TB (QFT) Incubation TB Test (QFT) Nil TB Test (QFT) Mitogen TB Test (QFT) Antigen TB Test (QFT) TB Positive Criteria 12/19/18 12/20/18 12/20/18 16:45 06:01 16:39 WBC RBC Hgb Hct MCV MCH MCHC RDW Plt Count MPV Sodium Potassium Chloride Carbon Dioxide Anion Gap BUN Creatinine Est GFR (CKD-EPI)AfAm Est GFR (CKD-EPI)NonAf POC Glucometer 110 106 124 Random Glucose Calcium Total Bilirubin AST ALT Alkaline Phosphatase Total Protein Albumin Urine Color Urine Appearance Urine pH Ur Specific [place] Urine Protein Urine Glucose (UA) Urine Ketones Urine Blood Urine Nitrite Urine Bilirubin Urine Urobilinogen Ur Leukocyte Esterase RPR Titer TB (QFT) Incubation TB Test (QFT) Nil TB Test (QFT) Mitogen TB Test (QFT) Antigen TB Test (QFT) TB Positive Criteria 12/21/18 12/21/18 12/22/18 06:21 16:30 05:59 WBC RBC Hgb Hct MCV MCH MCHC RDW Plt Count MPV Sodium Potassium Chloride Carbon Dioxide Anion Gap BUN Creatinine Est GFR (CKD-EPI)AfAm Est GFR (CKD-EPI)NonAf POC Glucometer 118 123 95 Random Glucose Calcium Total Bilirubin AST ALT Alkaline Phosphatase Total Protein Albumin Urine Color Urine Appearance Urine pH Ur Specific [place] Urine Protein Urine Glucose (UA) Urine Ketones Urine Blood Urine Nitrite Urine Bilirubin Urine Urobilinogen Ur Leukocyte Esterase RPR Titer TB (QFT) Incubation TB Test (QFT) Nil TB Test (QFT) Mitogen TB Test (QFT) Antigen TB Test (QFT) TB Positive Criteria 12/22/18 12/23/18 12/23/18 19:30 05:50 16:41 WBC RBC Hgb Hct MCV MCH MCHC RDW Plt Count MPV Sodium Potassium Chloride Carbon Dioxide Anion Gap BUN Creatinine Est GFR (CKD-EPI)AfAm Est GFR (CKD-EPI)NonAf POC Glucometer 125 111 151 Random Glucose Calcium Total Bilirubin AST ALT Alkaline Phosphatase Total Protein Albumin Urine Color Urine Appearance Urine pH Ur Specific [place] Urine Protein Urine Glucose (UA) Urine Ketones Urine Blood Urine Nitrite Urine Bilirubin Urine Urobilinogen Ur Leukocyte Esterase RPR Titer TB (QFT) Incubation TB Test (QFT) Nil TB Test (QFT) Mitogen TB Test (QFT) Antigen TB Test (QFT) TB Positive Criteria 12/24/18 12/24/18 12/25/18 06:03 16:40 06:29 WBC RBC Hgb Hct MCV MCH MCHC RDW Plt Count MPV Sodium Potassium Chloride Carbon Dioxide Anion Gap BUN Creatinine Est GFR (CKD-EPI)AfAm Est GFR (CKD-EPI)NonAf POC Glucometer 97 109 154 Random Glucose Calcium Total Bilirubin AST ALT Alkaline Phosphatase Total Protein Albumin Urine Color Urine Appearance Urine pH Ur Specific [place] Urine Protein Urine Glucose (UA) Urine Ketones Urine Blood Urine Nitrite Urine Bilirubin Urine Urobilinogen Ur Leukocyte Esterase RPR Titer TB (QFT) Incubation TB Test (QFT) Nil TB Test (QFT) Mitogen TB Test (QFT) Antigen TB Test (QFT) TB Positive Criteria 12/25/18 12/26/18 12/26/18 16:26 06:30 16:40 WBC RBC Hgb Hct MCV MCH MCHC RDW Plt Count MPV Sodium Potassium Chloride Carbon Dioxide Anion Gap BUN Creatinine Est GFR (CKD-EPI)AfAm Est GFR (CKD-EPI)NonAf POC Glucometer 110 99 96 Random Glucose Calcium Total Bilirubin AST ALT Alkaline Phosphatase Total Protein Albumin Urine Color Urine Appearance Urine pH Ur Specific [place] Urine Protein Urine Glucose (UA) Urine Ketones Urine Blood Urine Nitrite Urine Bilirubin Urine Urobilinogen Ur Leukocyte Esterase RPR Titer TB (QFT) Incubation TB Test (QFT) Nil TB Test (QFT) Mitogen TB Test (QFT) Antigen TB Test (QFT) TB Positive Criteria 12/27/18 05:56 WBC RBC Hgb Hct MCV MCH MCHC RDW Plt Count MPV Sodium Potassium Chloride Carbon Dioxide Anion Gap BUN Creatinine Est GFR (CKD-EPI)AfAm Est GFR (CKD-EPI)NonAf POC Glucometer 96 Random Glucose Calcium Total Bilirubin AST ALT Alkaline Phosphatase Total Protein Albumin Urine Color Urine Appearance Urine pH Ur Specific [place] Urine Protein Urine Glucose (UA) Urine Ketones Urine Blood Urine Nitrite Urine Bilirubin Urine Urobilinogen Ur Leukocyte Esterase RPR Titer TB (QFT) Incubation TB Test (QFT) Nil TB Test (QFT) Mitogen TB Test (QFT) Antigen TB Test (QFT) TB Positive Criteria Vital Signs - 24 hr 12/26/18 12/27/18 12/27/18 20:42 03:30 06:47 Temperature 98.2 F Pulse Rate 87 101 H Respiratory 18 18 20 Rate Blood Pressure 105/70 115/75 12/27/18 09:30 Temperature Pulse Rate 87 Respiratory 18 Rate Blood Pressure 106/64 Discussed BP medication regimen with patient due to his concern of low BP. Patient reports he was taking only Lisinopril as outpatient. ROS denies CP, SOB and headache. Mild dizziness in am. PE alert and oriented x 3 skin warm and dry +perrla, eoms intact bl ext full rom, no visible edema A/P: HTN Hx of CHF dizziness episode BP trend has been low but stable will continue aldactone and coreg as ordered d/c cozaar monitor clinically
[2018-12-27] MEDS ORDERED: PT OWN MED DRAWER 7, Y5N ONE (20:10)
[2018-12-27] MEDS: ATORVASTATIN CA 40 MG TABLET (FP) PO SCH (21:42)
[2018-12-27] MEDS: THIAMINE HCL 100 MG TABLET (FP) PO SCH (21:42)
[2018-12-27] MEDS: MELATONIN 5 MG TABLETS PO PRN (21:43)
[2018-12-28] MEDS: SPIRONOLACTONE 25 MG TABLET (FP) PO SCH (05:54)
[2018-12-28] MEDS: IBUPROFEN 400 MG TABLET (FP) PO PRN (05:55)
[2018-12-28] MEDS: PANTOPRAZOLE 40 MG TABLET (FP) PO SCH (06:32)
[2018-12-28] MEDS: TOLNAFTATE 1% CREAM 15 GM TUBE TP SCH ×2 (09:54→21:51)
[2018-12-28] MEDS: PRENATAL VITAMINS W/ FOLIC ACID TABLET (FP) PO SCH (09:54)
[2018-12-28] MEDS: TETRAHYDROZOLINE HCL EYE DROPS OU SCH ×2 (09:54→21:50)
[2018-12-28] MEDS: ASPIRIN 81 MG CHEWABLE TABLETS PO SCH (09:54)
[2018-12-28] MEDS: GABAPENTIN 300 MG CAPSULE (FP) PO SCH ×2 (09:54→21:50)
[2018-12-28] MEDS: busPIRone HCL 5 MG TABLET PO SCH ×2 (09:55→21:50)
[2018-12-28] MEDS: CARVEDILOL 25 MG TABLET (FP) PO SCH (09:55)
[2018-12-28] MEDS: TAMSULOSIN HCL 0.4 MG CAP PO SCH (09:55)
[2018-12-28] MEDS: QUEtiapine FUMARATE 50 MG TABLET PO SCH ×2 (09:55→21:50)
[2018-12-28] MEDS: THIAMINE HCL 100 MG TABLET (FP) PO SCH (21:50)
[2018-12-28] MEDS: ATORVASTATIN CA 40 MG TABLET (FP) PO SCH (21:50)
[2018-12-28] MEDS: MELATONIN 5 MG TABLETS PO PRN (21:52)
[2018-12-29] MEDS: SPIRONOLACTONE 25 MG TABLET (FP) PO SCH (05:53)
[2018-12-29] MEDS: PANTOPRAZOLE 40 MG TABLET (FP) PO SCH (06:38)
[2018-12-29] MEDS: TAMSULOSIN HCL 0.4 MG CAP PO SCH (08:14)
[2018-12-29] MEDS: GABAPENTIN 300 MG CAPSULE (FP) PO SCH ×2 (10:14→21:22)
[2018-12-29] MEDS: ASPIRIN 81 MG CHEWABLE TABLETS PO SCH (10:14)
[2018-12-29] MEDS: QUEtiapine FUMARATE 50 MG TABLET PO SCH ×2 (10:14→21:23)
[2018-12-29] MEDS: busPIRone HCL 5 MG TABLET PO SCH ×2 (10:14→21:23)
[2018-12-29] MEDS: PRENATAL VITAMINS W/ FOLIC ACID TABLET (FP) PO SCH (10:14)
[2018-12-29] MEDS: CARVEDILOL 25 MG TABLET (FP) PO SCH (10:15)
[2018-12-29] MEDS: TETRAHYDROZOLINE HCL EYE DROPS OU SCH ×2 (10:16→21:35)
[2018-12-29] MEDS: TOLNAFTATE 1% CREAM 15 GM TUBE TP SCH ×2 (10:16→21:34)
--- NOTE | 2018-12-29 12:12 | DS ---
[facility] Rehab Discharge Summary - [facility] Rehab Discharge Summary Admission Date: 12/16/18 Discharge Date: 12/30/18 - History Present History: Alcohol dependence, Cannabis dependence, Cocaine dependence Pertinent Past History: 58 Y.O MALE WITH ALCOHOL AND COCaine use. CLIENT IS REFERRED BY [facility] AFTER BEING HOSPITALIZED FOR C.P AND DETOX. DRUG HX/O SINCE THE AGE OF 16. REPORTS DAILY USE OF ALCOHOL, CRACK/COCAINE. LAST USE 1 WEEK AGO. REPORT LONGEST CLEAN TIME 7 YEARS RELAPSING 5 MONTHS AGO. DENIES SEIZURES, BLACKOUTS, DT'S, SI/HI/AVH. LIVES IN [facility], UNEMPLOYED, DENIES LEGALS - Discharge Physical Exam Vital Signs: Vital Signs Temperature 98.4 F 12/29/18 10:00 Pulse Rate 89 12/29/18 10:00 Respiratory Rate 18 12/29/18 10:00 Blood Pressure 118/75 12/29/18 10:00 O2 Sat by Pulse Oximetry (%) 12/30: 114/81, HR-91, Temp-98.6 - Treatment Discharge Condition: Outpatient referral accepted (Medically stable for discharge; has accepted referral back to [facility] for housing and aftercare.) Hospital Course: PATIENT WAS ADHERENT TO TREATMENT PLAN AND MEDICATION REGIMEN. WAS SEEN BY MEDICAL PROVIDER DURING HIS STAY IN REHAB FOR FOOT, RASH, REVIEW OF BP MEDICATIONS, NUMBNESS IN LEGS (PRIOR HX) ALL MEDICAL PROBLEMS ADDRESSED. HE WAS SEEN BY PSYCHIATRIC PROVIDER SEVERAL TIMES FOR ADJUSTMENT OF SEROQUEL. PATIENT IS MEDICALLY STABLE FOR DISCHARGE. - Medication Discharge Medications: Ambulatory Orders Buspirone HCl [Buspar -] 5 mg PO BID 12/15/18 Clonazepam [Klonopin] 0.5 mg PO HS 12/15/18 Metformin HCl [Glucophage] 500 mg PO DAILY 12/15/18 Quetiapine Fumarate [Seroquel] 200 mg PO BID 12/15/18 Aspirin [ASA -] 81 mg PO DAILY #14 tab.chew 12/29/18 Atorvastatin Ca [Lipitor] 1 tablet PO HS #14 tablet 12/29/18 Carvedilol [Coreg -] 25 mg PO DAILY #14 tablet 12/29/18 Losartan Potassium [Cozaar -] 25 mg PO DAILY #14 tablet 12/29/18 Pantoprazole Sodium [Protonix -] 1 tablet PO DAILY #14 tablet.ec 09/11/19 Spironolactone 25 mg PO DAILY #14 tablet 12/29/18 Tamsulosin HCl [Flomax] 0.4 mg PO DAILY #14 capsule 12/29/18 - Medication-Assisted Treatment (MAT) Medication-Assisted Treatment (MAT): No - Discharge Instructions Diet, activity, other medical instructions: Diet: TOLERATED Activity: TOLERATED Other medical instructions: PLEASE FOLLOW UP WITH AFTERCARE REFERRAL AND MEDICAL REFERRAL. - Diagnosis (1) Alcohol dependence Current Visit: Yes Status: Chronic Qualifiers: Substance use status: uncomplicated Qualified Code(s): F10.20 - Alcohol dependence, uncomplicated (2) Cannabis dependence Current Visit: Yes Status: Chronic (3) Cocaine dependence Current Visit: Yes Status: Chronic Qualifiers: Substance use status: uncomplicated Qualified Code(s): F14.20 - Cocaine dependence, uncomplicated - Follow-up Referral Minutes to complete discharge: 20 - AMA Did Patient Leave Against Medical Advice: No
[2018-12-29] MEDS: ATORVASTATIN CA 40 MG TABLET (FP) PO SCH (21:24)
[2018-12-29] MEDS: MELATONIN 5 MG TABLETS PO PRN (21:24)
[2018-12-29] MEDS: THIAMINE HCL 100 MG TABLET (FP) PO SCH (21:35)
[2018-12-30] MEDS: PANTOPRAZOLE 40 MG TABLET (FP) PO SCH (06:09)
[2018-12-30] MEDS: SPIRONOLACTONE 25 MG TABLET (FP) PO SCH (06:10)
[2018-12-30 06:58] VITALS: BP 110/70; PULSE 95; TEMP 97.9
[2018-12-30] MEDS: TAMSULOSIN HCL 0.4 MG CAP PO SCH (08:02)
[2018-12-30] MEDS ORDERED: PT OWN MED DRAWER 7, Y5N ONE (09:08)
[2018-12-30] MEDS: CARVEDILOL 25 MG TABLET (FP) PO SCH (09:09)
[2018-12-30] MEDS: busPIRone HCL 5 MG TABLET PO SCH (09:09)
[2018-12-30] MEDS: GABAPENTIN 300 MG CAPSULE (FP) PO SCH (09:09)
[2018-12-30] MEDS: ASPIRIN 81 MG CHEWABLE TABLETS PO SCH (09:09)
[2018-12-30] MEDS: TOLNAFTATE 1% CREAM 15 GM TUBE TP SCH (09:09)
[2018-12-30] MEDS: PRENATAL VITAMINS W/ FOLIC ACID TABLET (FP) PO SCH (09:09)
[2018-12-30] MEDS: QUEtiapine FUMARATE 50 MG TABLET PO SCH (09:09)
[2018-12-30] MEDS: ARTIFICIAL TEARS (POLYVINYL ALCOHOL) OPTH DROPS OU PRN (09:09)
== END 2018-12-30 09:16 | disposition home or self-care (01) | DRG 895 ==
LOC: YASAS 17:57 → Y3W 12-16 01:11
PROVIDERS: ADMIT Neuromusculoskeletal Medicine & OMM; ATTEND Neuromusculoskeletal Medicine & OMM
PROC: HZ42ZZZ Group Counseling for Substance Abuse Treatment, Cognitive-Behavioral (ICD-10-PCS; principal; 2018-12-16)
DX: F10.20 Alcohol dependence, uncomplicated (principal); F14.20 Cocaine dependence, uncomplicated; F19.282 Other psychoactive substance dependence with psychoactive substance-induced sleep disorder; F12.20 Cannabis dependence, uncomplicated; F25.9 Schizoaffective disorder, unspecified; F19.24 Other psychoactive substance dependence with psychoactive substance-induced mood disorder; I11.0 Hypertensive heart disease with heart failure; I50.9 Heart failure, unspecified; G62.9 Polyneuropathy, unspecified; K04.7 Periapical abscess without sinus; K02.9 Dental caries, unspecified; N40.0 Benign prostatic hyperplasia without lower urinary tract symptoms; K21.9 Gastro-esophageal reflux disease without esophagitis; D64.9 Anemia, unspecified; Z95.810 Presence of automatic (implantable) cardiac defibrillator
CPT/HCPCS: 36415; 80053; 81003; 82962; 85027; 86480; 86593; 93005; 93010

== ENCOUNTER 2019-03-11 17:21 | Inpatient (IN) | payer OTHER ==
[2019-03-11 18:05] VITALS: BMI 28.5
--- NOTE | 2019-03-11 21:39 | HP ---
CIWA Score - Admission Criteria OASAS Guidelines: Admission for Medically Managed Detox: Requires at least one of the followin. CIWA greater than 12 2. Seizures within the past 24 hours 3. Delirium tremens within the past 24 hours 4. Hallucinations within the past 24 hours 5. Acute intervention needed for co occurring medical disorder 6. Acute intervention needed for co occurring psychiatric disorder 7. Severe withdrawal that cannot be handled at a lower level of care (continued vomiting, continued diarrhea, abnormal vital signs) requiring intravenous medication and/or fluids 8. Admitting History and Physical - Smoking History Smoking history: Never smoked Have you smoked in the past 12 months: No - Alcohol/Substance Use Hx Alcohol Use: Yes Admission ROS BHS - HPI Chief Complaint: CLIENT SEEKING REHAB AFTER DETOX FOR ALCOHOL Allergies/Adverse Reactions: Allergies Allergy/AdvReac Type Severity Reaction Status Date / Time No Known Allergies Allergy Verified 03/11/19 17:54 History of Present Illness: REFERRED BY [facility] FOR INPATIENT REHAB AFTER BEING PRESENTED THERE FOR REHAB. CLIENT IS KNOWN TO THIS PROGRAM. LAST HERE 11/2018. STATES HE RELAPSE APPROX 2 MONTHS AFTER DC. DC FROM [facility] TODAY AFTER COMPLETING ALCOHOL DETOX AT [facility] AND TRANFERRED THERE FOR REHAB. AND BEING MEDICALLY CLEARED FOR C.P. ON ADMISSION. CLIENT REPORTS DAILY ALCOHOL INTAKE. LAST USE 6 DAYS. 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 HE ALSO REPORTS COCAINE ABUSE. LONGEST CLEAN TIME 10 YEARS. MOST RECENT CLEAN TIME 3 MONTHS RELAPSING ON 01/2019. HOMELESS, UNEMPLOYED, DENIES LEGALS Exam Limitations: No Limitations - Ebola screening Have you traveled outside of the country in the last 21 days: No (N) Have you had contact with anyone from an Ebola affected area: No Do you have a fever: No - Review of Systems Constitutional: No Symptoms Reported EENT: reports: Other (MISSING TEETH) Respiratory: reports: No Symptoms reported Cardiac: reports: No Symptoms Reported GI: reports: No Symptoms Reported : reports: No Symptoms Reported Musculoskeletal: reports: No Symptoms Reported Integumentary: reports: No Symptoms Reported Neuro: reports: No Symptoms reported Endocrine: reports: No Symptoms Reported Hematology: reports: No Symptoms Reported Psychiatric: reports: Orientated x3, Anxious, Depressed (DENIES SI) Other Systems: Reviewed and Negative Patient History - Patient Medical History Hx Anemia: Yes Hx Asthma: No Hx Chronic Obstructive Pulmonary Disease (COPD): No Hx Cancer: No Hx Cardiac Disorders: No Hx Congestive Heart Failure: Yes Hx Hypertension: Yes Hx Hypercholesterolemia: No Hx Pacemaker: Yes (ICD) HX Cerebrovascular Accident: No Hx Seizures: No Hx Dementia: No Hx Diabetes: No Hx Gastrointestinal Disorders: Yes (GERD) Hx Liver Disease: No Hx Genitourinary Disorders: Yes (BPH) Hx Sexually Transmitted Disorders: No Hx Renal Disease (ESRD): No Hx Thyroid Disease: No Hx Human Immunodeficiency Virus (HIV): No Hx Hepatitis C: No Hx Depression: Yes Hx Suicide Attempt: No Hx Bipolar Disorder: No Hx Schizophrenia: No - Patient Surgical History Past Surgical History: Yes Other Surgical History: ICD TO LEFT CHEST WALL Anesthesia Reaction: No - PPD History Previous Implant?: Yes Documented Results: Negative w/o proof Implanted On Prior [facility] Admission?: No Date: 12/16/18 Results: NEG TB GOLD PPD to be Administered?: No - Smoking Cessation Smoking history: Never smoked Have you smoked in the past 12 months: No Initiated information on smoking cessation: No - Substance & Tx. History Hx Alcohol Use: Yes Hx Substance Use: Yes Substance Use Type: Alcohol, Cocaine Hx Substance Use Treatment: Yes ([facility]) - Substances abused Alcohol Substance route: Oral Frequency: Daily Amount used: 5 to 10 (22 oz) of beer Age of first use: 16 Date of last use: 03/05/19 Cocaine Substance route: Smoking Frequency: Daily Amount used: 50 to 200 dollars Age of first use: 36 Date of last use: 03/05/19 Crack Substance route: Smoking Frequency: Daily Amount used: 50 to 200 dollars Age of first use: 36 Date of last use: 03/05/19 Marijuana/Hashish Substance route: Smoking Frequency: 3-6 times per week Amount used: 1 bag Age of first use: 18 Date of last use: 12/10/18 Admission Physical Exam BHS - Vital Signs Vital Signs: Vital Signs - 24 hr 03/11/19 03/11/19 18:00 18:13 Temperature 98.2 F 98.2 F Pulse Rate 98 H 98 H Respiratory 16 16 Rate Blood Pressure 132/67 132/67 - Physical General Appearance: Yes: Tremorous HEENTM: Yes: EOMI, Normocephalic, Normal Voice, KENNEDY, Pharynx Normal Respiratory: Yes: Chest Non-Tender, Lungs Clear, Normal Breath Sounds, No Respiratory Distress, No Accessory Muscle Use Neck: Yes: No masses,lesions,Nodules, Supple, Trachea in good position Breast: Yes: Breast Exam Deferred Cardiology: Yes: Regular Rhythm, Regular Rate, S1, S2, Other (left c/w ppm) Abdominal: Yes: Normal Bowel Sounds, Non Tender, Soft Genitourinary: Yes: Within Normal Limits Back: Yes: Normal Inspection Musculoskeletal: Yes: Gait Steady Extremities: Yes: Normal Capillary Refill, Normal Range of Motion, Non-Tender, Tremors Neurological: Yes: Fully Oriented, Alert, Motor Strength 5/5 Integumentary: Yes: Dry, Warm Lymphatic: Yes: Within Normal Limits - Diagnostic (1) GERD (gastroesophageal reflux disease) Current Visit: Yes Status: Chronic (2) BPH (benign prostatic hyperplasia) Current Visit: Yes Status: Chronic (3) Cocaine dependence, uncomplicated Current Visit: Yes Status: Acute (4) Substance induced mood disorder Current Visit: Yes Status: Suspected (5) Substance-induced sleep disorder Current Visit: No Status: Acute (6) Uncomplicated alcohol dependence Current Visit: Yes Status: Acute (7) AICD (automatic cardioverter/defibrillator) present Current Visit: Yes Status: Chronic Comment: LEFT C/W. LAST CHECKED THIS WEEK (8) CHF (congestive heart failure) Current Visit: Yes Status: Chronic Qualifiers: Heart failure chronicity: unspecified (9) HTN (hypertension) Current Visit: Yes Status: Chronic Qualifiers: Hypertension type: essential hypertension Qualified Code(s): I10 - Essential (primary) hypertension (10) History of anemia Current Visit: Yes Status: Chronic Cleared for Admission BHS - Detox or Rehab Detox Regimen/Protocol: Not Applicable Claeared for Rehab Admission: Yes Breathalyzer - Breathalyzer Breathalyzer: 0 Urine Drug Screen - Test Device Lot number: [id number] Expiration date: 11/17/20 - Control Is test valid?: Yes - Results Drug screen NEGATIVE: No Urine drug screen results: OSWALDO-Cocaine, BZO-Benzodiazepines Inpatient Rehab Admission - Rehab Decision to Admit Inpatient rehab admission?: Yes - Initial Determination Are CD services needed?: Yes Free of communicable disease: Yes Not in need of hospitalization: Yes - Rehab Admission Criteria Previous failed treatment: Yes Poor recovery environment: Yes Comorbidities: Yes Lacks judgement: No Patient is meeting Inpatient Rehab admission criteria:: Yes
[2019-03-11] MEDS ORDERED: MAGNESIUM CITRATE 300 ML BOTTLE PO PRN (21:51)
[2019-03-11] MEDS ORDERED: MENTHOL/PHENOL 1 EACH UD MM PRN (21:51)
[2019-03-11] MEDS ORDERED: MAGNESIUM HYDROX 2400MG/30ML ORAL SUSPENSION 30 ML CUP PO PRN (21:51)
[2019-03-11] MEDS ORDERED: IBUPROFEN 400 MG TABLET (FP) PO PRN (21:51)
[2019-03-11] MEDS ORDERED: P-EPHED 60MG/TRIPROLIDI 2.5MG TABLET PO PRN (21:51)
[2019-03-11] MEDS ORDERED: ACETAMINOPHEN 325 MG TABLET (FP) PO PRN (21:51)
[2019-03-11] MEDS ORDERED: guaiFENesin 200 MG/10 ML 10 ML UNIT-DOSE CUPS PO PRN (21:51)
[2019-03-11] MEDS ORDERED: MAG HYDROX/AL HYDROX/SIMETH 30 ML UNIT-DOSE CUP PO PRN (21:51)
[2019-03-11] MEDS ORDERED: LOPERAMIDE HCL 2 MG CAPSULE PO PRN (21:51)
[2019-03-11] MEDS ORDERED: MELATONIN 5 MG TABLETS PO PRN (22:00)
[2019-03-11] MEDS ORDERED: PNEUMOC 13-VAL CONJ-DIP CRM/PF 0.5 ML DISP.SYRIN IM ONE (22:30)
[2019-03-11] MEDS: THIAMINE HCL 100 MG TABLET (FP) PO SCH (23:21)
[2019-03-12] MEDS: PRENATAL VITAMINS W/ FOLIC ACID TABLET (FP) PO SCH (09:25)
[2019-03-12] MEDS: ASPIRIN 81 MG CHEWABLE TABLETS PO SCH (09:25)
[2019-03-12] MEDS: FLU VACCINE QUAD 60 MCG/0.5 ML (MDV 19-20) IM ONE ×2 (11:18→11:21)
[2019-03-12] MEDS ORDERED: PNEUMOCOCCAL 23 VACCINE 0.5 ML VIAL IM ONE (12:00)
[2019-03-12] MEDS: SACUBITRIL/VALSARTAN 97 MG-103 MG TABLET PO SCH ×2 (16:00→23:04)
[2019-03-12 16:22] LABS: HEMATOCRIT 36.3 % (35.4-49); HEMOGLOBIN 11.4 GM/dL (11.7-16.9); MCH 21.5 pg (25.7-33.7); MCHC 31.4 g/dl (32.0-35.9); MEAN CELL VOLUME 68.6 fl (80-96); MEAN PLT VOLUME 8.8 fl (7.5-11.1); PLATELET COUNT 223 K/MM3 (134-434); RBC 5.29 M/mm3 (4.00-5.60); RDW 16.1 % (11.9-15.9); WHITE BLOOD COUNT 4.2 K/mm3 (4.0-10.0)
[2019-03-12 16:28] LABS: PH,URINE 6.5 (5.0-8.0); URINE APPEARANCE CLEAR; URINE BILIRUBIN NEGATIVE (NEGATIVE); URINE COLOR YELLOW; URINE GLUCOSE (UA) NEGATIVE (NEGATIVE); URINE KETONE NEGATIVE (NEGATIVE); URINE LEUK ESTERASE NEGATIVE (NEGATIVE); URINE NITRITE NEGATIVE (NEGATIVE); URINE PROTEIN NEGATIVE (NEGATIVE); URINE UROBILINOGEN 0.2 mg/dL (0.2-1.0)
[2019-03-12 16:29] LABS: ALBUMIN 3.7 g/dl (3.4-5.0); BILIRUBIN,TOTAL 0.2 mg/dL (0.2-1); BLOOD UREA NITROGEN 21.9 mg/dL (7-18); CALCIUM 8.8 mg/dL (8.5-10.1); CREATININE 1.1 mg/dL (0.55-1.3); POTASSIUM 4.4 mmol/L (3.5-5.1); TOT PROT 6.8 g/dl (6.4-8.2)
--- NOTE | 2019-03-12 17:51 | EKG ---
Test Reason : Blood Pressure : / mmHG Vent. Rate : 079 BPM Atrial Rate : 079 BPM P-R Int : 156 ms QRS Dur : 096 ms QT Int : 422 ms P-R-T Axes : 064 -18 -09 degrees QTc Int : 483 ms NORMAL SINUS RHYTHM VOLTAGE CRITERIA FOR LEFT VENTRICULAR HYPERTROPHY CANNOT RULE OUT SEPTAL INFARCT (CITED ON OR BEFORE 16-DEC-2018) ABNORMAL ECG WHEN COMPARED WITH ECG OF 16-DEC-2018 01:29, NO SIGNIFICANT CHANGE WAS FOUND Confirmed by MD Herman, Velasquez ([id number]) on 03/12/2019 5:51:14 PM Referred By: Mayela Godfrey Confirmed By:Velasquez Sutton MD
[2019-03-12] MEDS: ATORVASTATIN CA 40 MG TABLET (FP) PO SCH (21:03)
[2019-03-12] MEDS: hydrOXYzine PAMOATE 50 MG CAPSULE (FP) PO PRN (21:04)
[2019-03-12] MEDS: THIAMINE HCL 100 MG TABLET (FP) PO SCH (21:04)
[2019-03-13] MEDS: PRENATAL VITAMINS W/ FOLIC ACID TABLET (FP) PO SCH (10:01)
[2019-03-13] MEDS: ASPIRIN 81 MG CHEWABLE TABLETS PO SCH (10:01)
[2019-03-13] MEDS: SACUBITRIL/VALSARTAN 97 MG-103 MG TABLET PO SCH ×2 (10:02→21:04)
[2019-03-13] MEDS: ATORVASTATIN CA 40 MG TABLET (FP) PO SCH (21:04)
[2019-03-13] MEDS: THIAMINE HCL 100 MG TABLET (FP) PO SCH (21:04)
[2019-03-13] MEDS: hydrOXYzine PAMOATE 50 MG CAPSULE (FP) PO PRN (21:05)
[2019-03-14] MEDS: SACUBITRIL/VALSARTAN 97 MG-103 MG TABLET PO SCH ×2 (10:16→21:08)
[2019-03-14] MEDS: ASPIRIN 81 MG CHEWABLE TABLETS PO SCH (10:16)
[2019-03-14] MEDS: PRENATAL VITAMINS W/ FOLIC ACID TABLET (FP) PO SCH (10:16)
[2019-03-14] MEDS ORDERED: NITROGLYCERIN SUBLINGUAL 1/200 0.3 MG BTL SL PRN (11:20)
--- NOTE | 2019-03-14 11:37 | PN ---
[facility] Progress Note Note: Pt is a 58 y/o male admitted on 03/11/[address] [place], [place] [id number] from [facility]. LELE of alcohol,crack and marijuana with hx of pace maker, GERD and HTN. Pt reports he was admitted to [facility] for chest pain as a result of alcohol intoxication for 2-3 days and referred to [facility] afterwards but no rehab was available so was referred here to [facility]. Pt requesting to see psych to restart seroquel and also review medications. Pt reports he has a primary care/PCP, Dr. Biggs 2 [facility] on [address] [place] [address]. reports he has cardiology care with [facility] on [address] [place] [address]. Vital Signs - 24 hr 03/14/19 03/14/19 03:30 06:53 Temperature 98.0 F Pulse Rate 87 Respiratory 18 18 Rate Blood Pressure 97/70 Laboratory Tests 03/12/19 03/12/19 03/12/19 10:00 10:00 15:11 WBC 4.2 RBC 5.29 Hgb 11.4 L Hct 36.3 MCV 68.6 L MCH 21.5 L MCHC 31.4 L RDW 16.1 H Plt Count 223 MPV 8.8 Sodium 141 Potassium 4.4 Chloride 108 H Carbon Dioxide 28 Anion Gap 4 L BUN 21.9 H Creatinine 1.1 Est GFR (CKD-EPI)AfAm 85.91 Est GFR (CKD-EPI)NonAf 74.12 Random Glucose 91 Calcium 8.8 Total Bilirubin 0.2 AST 32 ALT 30 Alkaline Phosphatase 79 Total Protein 6.8 Albumin 3.7 Urine Color Yellow Urine Appearance Clear Urine pH 6.5 Ur Specific [place] 1.031 Urine Protein Negative Urine Glucose (UA) Negative Urine Ketones Negative Urine Blood Negative Urine Nitrite Negative Urine Bilirubin Negative Urine Urobilinogen 0.2 Ur Leukocyte Esterase Negative Alert o x 3 nad oob ambulating with steady gait A/P Hx LELE Increase po fluids as tolerated psych consult ordered. Medications/labs reviewed.
[2019-03-14] MEDS ORDERED: NITROGLYCERIN SUBLINGUAL 1/150 0.4 MG TAB SL PRN (11:48)
[2019-03-14] MEDS: THIAMINE HCL 100 MG TABLET (FP) PO SCH (21:08)
[2019-03-14] MEDS: ATORVASTATIN CA 40 MG TABLET (FP) PO SCH (21:08)
[2019-03-14] MEDS: hydrOXYzine PAMOATE 50 MG CAPSULE (FP) PO PRN (21:10)
[2019-03-15] MEDS: SACUBITRIL/VALSARTAN 97 MG-103 MG TABLET PO SCH ×2 (09:54→21:09)
[2019-03-15] MEDS: PRENATAL VITAMINS W/ FOLIC ACID TABLET (FP) PO SCH (09:54)
[2019-03-15] MEDS: ASPIRIN 81 MG CHEWABLE TABLETS PO SCH (09:54)
--- NOTE | 2019-03-15 14:35 | CONSULT ---
[facility] Psychiatric Consult - Data Date of interview: 03/15/19 Admission source: [facility] Identifying data: Mr Santa is a 58 years old Black male living as , father of 3 children, unemployed receiving SSD, homeless seeking rehab treatment for alcohol, cocaine and cannabis Substance Abuse History: Reports history of alcohol, cocaine and marijuana. Refer to addiction counselor's summary for further information Medical History: Significant for thalassemia, hypertension, congestive heart failure, GERD, BPH and history of ICD implantation. Psychiatric History: Patient is well known to automobile service writer from an recent encounter during an admission to this facility in 2018. Historical narrative remains consistent. He reports that his first psychiatric contact was in 2002 while at [facility] for inpatient rehab. He was diagnosed with Schizoaffective Disorder and prescribed Seroquel 200 mg/bid and Wellbutrin(dose unknown). Reports that he no longer receives outpatient psychiatric treatment at [facility] but sees a psychiatrist at [facility] in [place]. He is currently prescribed Seroquel 150 mg/bid, Buspar 5 mg/bid and Klonopin 0.5 mg/ hs. Denies previous psychiatric hospitalization or suicidal attempt. At present , denies experiencing psychotic, manic or depressive symptoms, S/H ideations. However, reports sleeping poorly. Requests to take Seroquel 150 mg/hs so he can be less drowsy in order to be productive in attending group during the day Physical/Sexual Abuse/Trauma History: Denies history of emotional, physical or sexual abuse as well as DV relationship. Additional Comment: Reports history of multiple previous misdemear arrests to provide for his habit. No probation currently Mental Status Exam - Mental Status Exam Alert and Oriented to: Time, Place, Person Cognitive Function: Fair Patient Appearance: Disheveled Mood: Hopeful, Euthymic Patient Behavior: Cooperative Speech Pattern: Clear Voice Loudness: Normal Thought Process: Intact, Goal Oriented Thought Disorder: Not Present Hallucinations: Denies Suicidal Ideation: Denies Homicidal Ideation: Denies Insight/Judgement: Fair Sleep: Poorly Appetite: Good Muscle strength/Tone: Normal Gait/Station: Normal Psychiatric Findings - Problem List (Callender 1, 2,3) (1) Schizoaffective disorder Current Visit: No Status: Chronic (2) Substance-induced sleep disorder Current Visit: Yes Status: Acute (3) Alcohol dependence Current Visit: No Status: Acute Qualifiers: Substance use status: uncomplicated Qualified Code(s): F10.20 - Alcohol dependence, uncomplicated (4) Cocaine dependence Current Visit: No Status: Acute Qualifiers: Substance use status: uncomplicated Qualified Code(s): F14.20 - Cocaine dependence, uncomplicated (5) Cannabis dependence Current Visit: No Status: Acute (6) HTN (hypertension) Current Visit: Yes Status: Chronic Qualifiers: Hypertension type: essential hypertension Qualified Code(s): I10 - Essential (primary) hypertension (7) History of anemia Current Visit: Yes Status: Chronic (8) GERD (gastroesophageal reflux disease) Current Visit: Yes Status: Chronic (9) BPH (benign prostatic hyperplasia) Current Visit: Yes Status: Chronic (10) CHF (congestive heart failure) Current Visit: No Status: Chronic (11) AICD (automatic cardioverter/defibrillator) present Current Visit: Yes Status: Chronic Comment: LEFT C/W. LAST CHECKED THIS WEEK - Initial Treatment Plan Initial Treatment Plan: 1) Continue Buspar 5 mg po BID. 2) Start Seroquel 150 mg po HS. 3) Continue inpatient rehabilitation
[2019-03-15] MEDS: QUEtiapine FUMARATE 50 MG TABLET PO SCH (21:09)
[2019-03-15] MEDS: hydrOXYzine PAMOATE 50 MG CAPSULE (FP) PO PRN (21:09)
[2019-03-15] MEDS: THIAMINE HCL 100 MG TABLET (FP) PO SCH (21:09)
[2019-03-15] MEDS: busPIRone HCL 5 MG TABLET PO SCH (21:09)
[2019-03-15] MEDS: ATORVASTATIN CA 40 MG TABLET (FP) PO SCH (21:09)
[2019-03-16] MEDS: ASPIRIN 81 MG CHEWABLE TABLETS PO SCH (09:54)
[2019-03-16] MEDS: PRENATAL VITAMINS W/ FOLIC ACID TABLET (FP) PO SCH (09:54)
[2019-03-16] MEDS: busPIRone HCL 5 MG TABLET PO SCH ×2 (09:54→21:05)
[2019-03-16] MEDS: SACUBITRIL/VALSARTAN 97 MG-103 MG TABLET PO SCH ×2 (11:04→21:06)
[2019-03-16] MEDS: ATORVASTATIN CA 40 MG TABLET (FP) PO SCH (21:05)
[2019-03-16] MEDS: THIAMINE HCL 100 MG TABLET (FP) PO SCH (21:05)
[2019-03-16] MEDS: QUEtiapine FUMARATE 50 MG TABLET PO SCH (21:05)
[2019-03-17] MEDS: ASPIRIN 81 MG CHEWABLE TABLETS PO SCH (09:22)
[2019-03-17] MEDS: busPIRone HCL 5 MG TABLET PO SCH ×2 (09:22→21:03)
[2019-03-17] MEDS: SACUBITRIL/VALSARTAN 97 MG-103 MG TABLET PO SCH ×2 (09:22→21:05)
[2019-03-17] MEDS: PRENATAL VITAMINS W/ FOLIC ACID TABLET (FP) PO SCH (09:22)
[2019-03-17] MEDS: ATORVASTATIN CA 40 MG TABLET (FP) PO SCH (21:03)
[2019-03-17] MEDS: THIAMINE HCL 100 MG TABLET (FP) PO SCH (21:03)
[2019-03-17] MEDS: QUEtiapine FUMARATE 50 MG TABLET PO SCH (21:03)
[2019-03-18] MEDS: busPIRone HCL 5 MG TABLET PO SCH ×2 (10:06→21:01)
[2019-03-18] MEDS: PRENATAL VITAMINS W/ FOLIC ACID TABLET (FP) PO SCH (10:06)
[2019-03-18] MEDS: ASPIRIN 81 MG CHEWABLE TABLETS PO SCH (10:06)
[2019-03-18] MEDS: SACUBITRIL/VALSARTAN 97 MG-103 MG TABLET PO SCH ×2 (10:07→21:01)
[2019-03-18] MEDS: THIAMINE HCL 100 MG TABLET (FP) PO SCH (21:00)
[2019-03-18] MEDS: QUEtiapine FUMARATE 50 MG TABLET PO SCH (21:00)
[2019-03-18] MEDS: ATORVASTATIN CA 40 MG TABLET (FP) PO SCH (21:01)
[2019-03-18] MEDS: hydrOXYzine PAMOATE 50 MG CAPSULE (FP) PO PRN (21:02)
[2019-03-19] MEDS: ASPIRIN 81 MG CHEWABLE TABLETS PO SCH (09:39)
[2019-03-19] MEDS: busPIRone HCL 5 MG TABLET PO SCH ×2 (09:39→21:02)
[2019-03-19] MEDS: PRENATAL VITAMINS W/ FOLIC ACID TABLET (FP) PO SCH (09:39)
[2019-03-19] MEDS: SACUBITRIL/VALSARTAN 97 MG-103 MG TABLET PO SCH ×2 (09:40→21:04)
[2019-03-19] MEDS: ATORVASTATIN CA 40 MG TABLET (FP) PO SCH (21:02)
[2019-03-19] MEDS: QUEtiapine FUMARATE 50 MG TABLET PO SCH (21:02)
[2019-03-19] MEDS: THIAMINE HCL 100 MG TABLET (FP) PO SCH (21:02)
[2019-03-20] MEDS: ASPIRIN 81 MG CHEWABLE TABLETS PO SCH (09:39)
[2019-03-20] MEDS: busPIRone HCL 5 MG TABLET PO SCH ×2 (09:39→21:01)
[2019-03-20] MEDS: PRENATAL VITAMINS W/ FOLIC ACID TABLET (FP) PO SCH (09:39)
[2019-03-20] MEDS: SACUBITRIL/VALSARTAN 97 MG-103 MG TABLET PO SCH ×2 (09:40→21:01)
[2019-03-20] MEDS: QUEtiapine FUMARATE 50 MG TABLET PO SCH (21:00)
[2019-03-20] MEDS: THIAMINE HCL 100 MG TABLET (FP) PO SCH (21:01)
[2019-03-20] MEDS: ATORVASTATIN CA 40 MG TABLET (FP) PO SCH (21:01)
[2019-03-21] MEDS: busPIRone HCL 5 MG TABLET PO SCH ×2 (10:33→21:05)
[2019-03-21] MEDS: SACUBITRIL/VALSARTAN 97 MG-103 MG TABLET PO SCH ×2 (10:33→21:05)
[2019-03-21] MEDS: ASPIRIN 81 MG CHEWABLE TABLETS PO SCH (10:33)
[2019-03-21] MEDS: PRENATAL VITAMINS W/ FOLIC ACID TABLET (FP) PO SCH (10:33)
[2019-03-21] MEDS: QUEtiapine FUMARATE 50 MG TABLET PO SCH (21:04)
[2019-03-21] MEDS: ATORVASTATIN CA 40 MG TABLET (FP) PO SCH (21:05)
[2019-03-21] MEDS: THIAMINE HCL 100 MG TABLET (FP) PO SCH (21:05)
[2019-03-22] MEDS: ASPIRIN 81 MG CHEWABLE TABLETS PO SCH (10:03)
[2019-03-22] MEDS: PRENATAL VITAMINS W/ FOLIC ACID TABLET (FP) PO SCH (10:04)
[2019-03-22] MEDS: busPIRone HCL 5 MG TABLET PO SCH ×2 (10:04→21:53)
[2019-03-22] MEDS: SACUBITRIL/VALSARTAN 97 MG-103 MG TABLET PO SCH ×2 (10:04→21:53)
--- NOTE | 2019-03-22 10:11 | PN ---
[facility] Progress Note Note: Patient is scheduled for discharge tomorrow. Scripts for 30 days supply of medications(Buspar 5 mg/bid, Seroquel 150 mg/hs) will be electronically transmitted to [facility] at [address] [place] [address] [phone]
[2019-03-22] MEDS ORDERED: METHOCARBAMOL 500 MG TABLET PO PRN (15:02)
[2019-03-22] MEDS: QUEtiapine FUMARATE 50 MG TABLET PO SCH (21:53)
[2019-03-22] MEDS: ATORVASTATIN CA 40 MG TABLET (FP) PO SCH (21:53)
[2019-03-22] MEDS: hydrOXYzine PAMOATE 50 MG CAPSULE (FP) PO PRN (21:54)
[2019-03-22] MEDS: THIAMINE HCL 100 MG TABLET (FP) PO SCH (21:54)
--- NOTE | 2019-03-22 22:14 | PN ---
[facility] Progress Note Note: Pt c/o right Knee and foot pain/spasms. Reports sometimes cramps from buttock through thigh to foot. Reports hx of sciatica. Vital Signs - 24 hr 03/22/19 03/22/19 03/22/19 00:30 03:30 06:42 Temperature 97.9 F Pulse Rate 110 H Respiratory 18 18 18 Rate Blood Pressure 103/62 PE RLE:No swelling, redness or warmth. A/P Muscle spasms Hx Sciatica Robaxin 500 mg po tid prn
[2019-03-23 07:05] VITALS: BP 101/69; PULSE 105; TEMP 97.8
[2019-03-23] MEDS: busPIRone HCL 5 MG TABLET PO SCH (10:12)
[2019-03-23] MEDS: ASPIRIN 81 MG CHEWABLE TABLETS PO SCH (10:12)
[2019-03-23] MEDS: PRENATAL VITAMINS W/ FOLIC ACID TABLET (FP) PO SCH (10:12)
[2019-03-23] MEDS: SACUBITRIL/VALSARTAN 97 MG-103 MG TABLET PO SCH (10:13)
--- NOTE | 2019-03-23 10:38 | DS ---
[facility] Rehab Discharge Summary - [facility] Rehab Discharge Summary Admission Date: 03/11/19 Discharge Date: 03/23/19 - History Present History: Alcohol dependence, Cannabis dependence, Cocaine dependence Additional Comments: Pt is a 58 y/o male admitted on 03/11/[address] [place], [place] [address]ab from [facility]. LELE of alcohol,crack and marijuana with hx of pace maker, GERD and HTN. Pt reports he was admitted to [facility] for chest pain as a result of alcohol intoxication for 2-3 days and referred to [facility] afterwards but no rehab was available so was referred here to [facility]. Pt requesting to see psych to restart seroquel and also review medications. Pt reports he has a primary care/PCP, Dr. Biggs [facility] on [address] [place], [place]. reports he has cardiology care with [facility] on [address] [place], [place]. pt reports he is scheduled to start cardio-rehab at [facility] once he is discharged from here. Pertinent Past History: HTN HLD AICD(Automatic Cardioverter/defibrillator GERD CHF Schizoaffective Disorder - Discharge Physical Exam Vital Signs: Vital Signs Temperature 97.8 F 03/23/19 07:05 Pulse Rate 105 H 03/23/19 07:05 Respiratory Rate 18 03/23/19 07:05 Blood Pressure 101/69 03/23/19 07:05 O2 Sat by Pulse Oximetry (%) Alert o x 3 nad oob ambulating with steady gait cardiac:s1 s2,rrr lungs:cta,holly. abdomen;soft,+bs,nt,nd extremities/skin:no edema,full ROM/weight bearing,skin intact. Pertinent Admission Physical Exam Findings: Laboratory Tests 03/12/19 03/12/19 03/12/19 10:00 10:00 15:11 WBC 4.2 RBC 5.29 Hgb 11.4 L Hct 36.3 MCV 68.6 L MCH 21.5 L MCHC 31.4 L RDW 16.1 H Plt Count 223 MPV 8.8 Sodium 141 Potassium 4.4 Chloride 108 H Carbon Dioxide 28 Anion Gap 4 L BUN 21.9 H Creatinine 1.1 Est GFR (CKD-EPI)AfAm 85.91 Est GFR (CKD-EPI)NonAf 74.12 Random Glucose 91 Calcium 8.8 Total Bilirubin 0.2 AST 32 ALT 30 Alkaline Phosphatase 79 Total Protein 6.8 Albumin 3.7 Urine Color Yellow Urine Appearance Clear Urine pH 6.5 Ur Specific [place] 1.031 Urine Protein Negative Urine Glucose (UA) Negative Urine Ketones Negative Urine Blood Negative Urine Nitrite Negative Urine Bilirubin Negative Urine Urobilinogen 0.2 Ur Leukocyte Esterase Negative - Treatment Discharge Condition: Discharge condition good Hospital Course: Rehabilitated safely CD aftercare referral accepted to [facility]. - Medication Discharge Medications: Ambulatory Orders Clonazepam [Klonopin] 0.5 mg PO HS 12/15/18 Quetiapine Fumarate [Seroquel] 150 mg PO BID 12/15/18 Aspirin [ASA -] 81 mg PO DAILY #14 tab.chew 12/29/18 Atorvastatin Ca [Lipitor] 1 tablet PO HS #14 tablet 12/29/18 Sacubitril/Valsartan [Entresto 97 mg-103 mg Tablet] 103 mg PO BID 03/11/19 Nitroglycerin 0.4 mg SL ASDIR 03/14/19 Buspirone HCl [Buspar -] 5 mg PO BID #60 tablet 03/22/19 Quetiapine Fumarate [Seroquel -] 150 mg PO HS #90 tablet 03/22/19 - Medication-Assisted Treatment (MAT) Medication-Assisted Treatment (MAT): No - Discharge Instructions Diet, activity, other medical instructions: Diet:LOPEZ Activity: oob ad saeid Other medical instructions:follow up with CD aftercare as scheduled Follow up with primary care provider(s) for medical management of comorbid conditions as discussed. Pt to reschedule all appointments missed while here in rehab after leaving today. - Diagnosis (1) HTN (hypertension) Current Visit: Yes Status: Chronic Qualifiers: Hypertension type: essential hypertension Qualified Code(s): I10 - Essential (primary) hypertension (2) AICD (automatic cardioverter/defibrillator) present Current Visit: Yes Status: Chronic (3) History of anemia Current Visit: Yes Status: Chronic (4) Alcohol dependence Current Visit: Yes Status: Chronic Qualifiers: Substance use status: uncomplicated Qualified Code(s): F10.20 - Alcohol dependence, uncomplicated (5) Cocaine dependence Current Visit: Yes Status: Chronic Qualifiers: Substance use status: uncomplicated Qualified Code(s): F14.20 - Cocaine dependence, uncomplicated (6) Cannabis dependence Current Visit: Yes Status: Chronic (7) CHF (congestive heart failure) Current Visit: Yes Status: Chronic Qualifiers: Heart failure chronicity: unspecified (8) GERD (gastroesophageal reflux disease) Current Visit: Yes Status: Chronic Qualifiers: Esophagitis presence: esophagitis presence not specified Qualified Code(s) : K21.9 - Gastro-esophageal reflux disease without esophagitis (9) BPH (benign prostatic hyperplasia) Current Visit: Yes Status: Chronic Qualifiers: Lower urinary tract symptom detail: unspecified - Follow-up Referral Minutes to complete discharge: 25 - AMA Did Patient Leave Against Medical Advice: No
== END 2019-03-23 11:45 | disposition home or self-care (01) | DRG 895 ==
LOC: YASAS 17:21 → Y5N 22:26
PROVIDERS: ADMIT Neuromusculoskeletal Medicine & OMM; ATTEND Neuromusculoskeletal Medicine & OMM
PROC: HZ42ZZZ Group Counseling for Substance Abuse Treatment, Cognitive-Behavioral (ICD-10-PCS; principal; 2019-03-11)
DX: F10.20 Alcohol dependence, uncomplicated (principal); F14.20 Cocaine dependence, uncomplicated; F19.282 Other psychoactive substance dependence with psychoactive substance-induced sleep disorder; F12.20 Cannabis dependence, uncomplicated; F19.24 Other psychoactive substance dependence with psychoactive substance-induced mood disorder; F25.9 Schizoaffective disorder, unspecified; I11.0 Hypertensive heart disease with heart failure; I50.9 Heart failure, unspecified; E78.00 Pure hypercholesterolemia, unspecified; K21.9 Gastro-esophageal reflux disease without esophagitis; N40.0 Benign prostatic hyperplasia without lower urinary tract symptoms; M62.838 Other muscle spasm; Z86.69 Personal history of other diseases of the nervous system and sense organs; Z86.2 Personal history of diseases of the blood and blood-forming organs and certain disorders involving the immune mechanism; Z95.810 Presence of automatic (implantable) cardiac defibrillator
CPT/HCPCS: 36415; 80053; 81003; 85027; 90732; 93005; 93010; G0008; G0009; Q2036

== ENCOUNTER 2019-10-16 14:02 | Inpatient (IN) | payer OTHER ==
--- NOTE | 2019-10-16 16:42 | HP ---
CIWA Score Nausea/Vomitin Muscle Tremors: 2 Anxiety: 2 Agitation: 2 Paroxysmal Sweats: 2 Orientation: 0-Oriented Tacttile Disturbances: 1-Very Mild Itch/Numbness Auditory Disturbances: 2-Mild Harshness/Frighten Visual Disturbances: 1-Very Mild Sensitivity Headache: 2-Mild CIWA-Ar Total Score: 16 - Admission Criteria OASAS Guidelines: Admission for Medically Managed Detox: Requires at least one of the followin. CIWA greater than 12 2. Seizures within the past 24 hours 3. Delirium tremens within the past 24 hours 4. Hallucinations within the past 24 hours 5. Acute intervention needed for co occurring medical disorder 6. Acute intervention needed for co occurring psychiatric disorder 7. Severe withdrawal that cannot be handled at a lower level of care (continued vomiting, continued diarrhea, abnormal vital signs) requiring intravenous medication and/or fluids 8. Patient presents the following: CIWA greater than 12 Admission Criteria Met: Admission criteria met Admitting History and Physical - Smoking History Smoking history: Never smoked Have you smoked in the past 12 months: No - Alcohol/Substance Use Hx Alcohol Use: Yes Admission ROS S - HPI Chief Complaint: I need detox and rehab Allergies/Adverse Reactions: Allergies Allergy/AdvReac Type Severity Reaction Status Date / Time No Known Allergies Allergy Verified 03/11/19 17:54 History of Present Illness: 59 year old man alcohol use presents for detox, he denies seizures or alcohol related blackouts. Patient had TB gold done last November which was negative. Exam Limitations: No Limitations - Ebola screening Have you traveled outside of the country in the last 21 days: No Have you had contact with anyone from an Ebola affected area: No Have you been sick,other than usual withdrawal symptoms: No Do you have a fever: No - Review of Systems Constitutional: Changes in sleep, Unintentional Wgt. Loss EENT: reports: Blurred Vision, Sinus Pressure Respiratory: reports: SOB with Exertion (r/t CHF) Cardiac: reports: No Symptoms Reported GI: reports: Nausea, Poor Fluid Intake, Abdominal cramping : reports: No Symptoms Reported Musculoskeletal: reports: Muscle Pain, Muscle Weakness Integumentary: reports: Sweating Neuro: reports: Numbness, Tremors Endocrine: reports: No Symptoms Reported Hematology: reports: Anemia Psychiatric: reports: Anxious, Depressed Other Systems: Reviewed and Negative Patient History - Patient Medical History Hx Anemia: Yes Hx Asthma: No Hx Chronic Obstructive Pulmonary Disease (COPD): No Hx Cancer: No Hx Cardiac Disorders: No Hx Congestive Heart Failure: Yes Hx Hypertension: Yes Hx Hypercholesterolemia: No Hx Pacemaker: Yes (ICD) HX Cerebrovascular Accident: No Hx Seizures: No Hx Dementia: No Hx Diabetes: No Hx Gastrointestinal Disorders: No Hx Liver Disease: No Hx Genitourinary Disorders: No Hx Sexually Transmitted Disorders: No Hx Renal Disease (ESRD): No Hx Thyroid Disease: No Hx Human Immunodeficiency Virus (HIV): No Hx Hepatitis C: No Hx Depression: Yes Hx Suicide Attempt: No Hx Bipolar Disorder: No Hx Schizophrenia: No - Patient Surgical History Past Surgical History: Yes Hx Neurologic Surgery: No Hx Cataract Extraction: No Hx Cardiac Surgery: No Hx Lung Surgery: No Hx Breast Surgery: No Hx Breast Biopsy: No Hx Abdominal Surgery: No Hx Appendectomy: No Hx Cholecystectomy: No Hx Genitourinary Surgery: No Hx Section: No Hx Orthopedic Surgery: No Other Surgical History: ICD TO LEFT CHEST WALL Anesthesia Reaction: No - PPD History Previous Implant?: No Documented Results: Negative w/o proof Implanted On Prior [facility] Admission?: No Date: 12/16/18 Results: NEG TB GOLD PPD to be Administered?: No - Smoking Cessation Smoking history: Never smoked Have you smoked in the past 12 months: No Hx Chewing Tobacco Use: No Initiated information on smoking cessation: No - Substance & Tx. History Hx Alcohol Use: Yes Hx Substance Use: Yes Substance Use Type: Alcohol, Cocaine Hx Substance Use Treatment: Yes - Substances abused Alcohol Other (specify): beer, liqour and presley Substance route: Oral Amount used: 4 22oz and 4 cans of presley and 1/2 pint of liqour Age of first use: 16 Date of last use: 10/16/19 Cocaine Substance route: Smoking Frequency: Daily Amount used: $100 Age of first use: 29 Date of last use: 10/15/19 Admission Physical Exam [facility] - Physical General Appearance: Yes: No Apparent Distress HEENTM: Yes: EOMI, Hearing grossly Normal, Normocephalic, Normal Voice Respiratory: Yes: Chest Non-Tender, Lungs Clear, No Accessory Muscle Use Neck: Yes: No masses,lesions,Nodules, Supple Breast: Yes: Breast Exam Deferred Cardiology: Yes: Regular Rhythm, Regular Rate, Other (left chest ICD) Abdominal: Yes: Normal Bowel Sounds, Soft Genitourinary: Yes: Within Normal Limits Back: Yes: Normal Inspection Musculoskeletal: Yes: full range of Motion, Muscle Pain, Muscle weakness Extremities: Yes: Non-Tender, Tremors Neurological: Yes: Fully Oriented, Alert, Normal Mood/Affect, Normal Response Integumentary: Yes: Normal Color Lymphatic: Yes: Within Normal Limits - Diagnostic (1) Cocaine dependence, uncomplicated Current Visit: Yes Status: Chronic (2) Alcohol dependence Current Visit: Yes Status: Acute Qualifiers: Substance use status: uncomplicated Qualified Code(s): F10.20 - Alcohol dependence, uncomplicated (3) CHF (congestive heart failure) Current Visit: Yes Status: Chronic Qualifiers: Heart failure chronicity: unspecified (4) GERD (gastroesophageal reflux disease) Current Visit: Yes Status: Chronic Qualifiers: Esophagitis presence: without esophagitis Qualified Code(s): K21.9 - Gastro-esophageal reflux disease without esophagitis (5) HTN (hypertension) Current Visit: Yes Status: Chronic Qualifiers: Hypertension type: essential hypertension Qualified Code(s): I10 - Essential (primary) hypertension Cleared for Admission S - Detox or Rehab [facility] Level of Care: Medically Managed Detox Regimen/Protocol: Librium Claeared for Rehab Admission: No Breathalyzer - Breathalyzer Breathalyzer: 0 Urine Drug Screen - Test Device Lot number: [id number] Expiration date: 12/18/20 - Control Is test valid?: Yes - Results Drug screen NEGATIVE: No Urine drug screen results: OSWALDO-Cocaine Inpatient Rehab Admission - Rehab Decision to Admit Inpatient rehab admission?: No
[2019-10-16] MEDS ORDERED: METHOCARBAMOL 500 MG TABLET PO PRN (16:46)
[2019-10-16] MEDS ORDERED: MENTHOL/PHENOL 1 EACH UD MM PRN (16:46)
[2019-10-16] MEDS ORDERED: ACETAMINOPHEN 325 MG TABLET (FP) PO PRN ×2 (16:46)
[2019-10-16] MEDS ORDERED: MAGNESIUM HYDROX 2400MG/30ML ORAL SUSPENSION 30 ML CUP PO PRN (16:46)
[2019-10-16] MEDS ORDERED: ONDANSETRON *ODT* 4 MG TABLET SL ONE (16:46)
[2019-10-16] MEDS ORDERED: MAGNESIUM CITRATE 300 ML BOTTLE PO PRN (16:46)
[2019-10-16] MEDS ORDERED: NICOTINE POLACRILEX 2 MG GUM BUC PRN (16:46)
[2019-10-16] MEDS ORDERED: chlordiazePOXIDE HCL 10 MG CAPSULE PO PRN (16:46)
[2019-10-16] MEDS ORDERED: BISMUTH SUBSALICYLATE 524 MG/30 ML UD PO PRN (16:46)
[2019-10-16] MEDS ORDERED: IBUPROFEN 400 MG TABLET (FP) PO PRN (16:46)
[2019-10-16] MEDS ORDERED: MAG HYDROX/AL HYDROX/SIMETH 30 ML UNIT-DOSE CUP PO PRN (16:46)
[2019-10-16 17:29] VITALS: BMI 22.1
[2019-10-16] MEDS ORDERED: chlordiazePOXIDE HCL 25 MG CAPSULE PO ONE (17:30)
[2019-10-16] MEDS: NITROGLYCERIN SUBLINGUAL 1/150 0.4 MG TAB SL SCH (18:28)
[2019-10-16] MEDS: hydrOXYzine PAMOATE 25 MG CAPSULE (FP) PO SCH ×2 (18:28→22:29)
[2019-10-16] MEDS ORDERED: QUEtiapine FUMARATE 50 MG TABLET ONE (21:08)
[2019-10-16] MEDS ORDERED: QUEtiapine FUMARATE 100 MG TABLET (FP) PO ONE (22:00)
[2019-10-16] MEDS: ATORVASTATIN CA 40 MG TABLET (FP) PO SCH (22:27)
[2019-10-16] MEDS: THIAMINE HCL 100 MG TABLET (FP) PO SCH (22:27)
[2019-10-16] MEDS: MELATONIN 5 MG TABLETS PO SCH (22:28)
[2019-10-16] MEDS: chlordiazePOXIDE HCL 25 MG CAPSULE PO SCH (22:28)
[2019-10-16] MEDS: SACUBITRIL/VALSARTAN 97 MG-103 MG TABLET PO SCH (22:59)
[2019-10-17] MEDS: chlordiazePOXIDE HCL 25 MG CAPSULE PO SCH ×3 (06:53→22:00)
[2019-10-17] MEDS: hydrOXYzine PAMOATE 25 MG CAPSULE (FP) PO SCH (06:53)
[2019-10-17] MEDS: FUROSEMIDE 20 MG TABLET (FP) PO SCH (09:54)
[2019-10-17] MEDS: SACUBITRIL/VALSARTAN 97 MG-103 MG TABLET PO SCH ×2 (09:54→22:27)
[2019-10-17] MEDS: PRENATAL VITAMINS W/ FOLIC ACID TABLET (FP) PO SCH (09:55)
[2019-10-17] MEDS: NICOTINE 7 MG/24 HOURS TOPICAL PATCH TD SCH (09:55)
[2019-10-17] MEDS: ASPIRIN 81 MG CHEWABLE TABLETS PO SCH (09:55)
--- NOTE | 2019-10-17 10:46 | PN ---
S CIWA - CIWA Score Nausea/Vomitin Muscle Tremors: 2 Anxiety: 2 Agitation: 2 Paroxysmal Sweats: No Perspiration Orientation: 0-Oriented Tacttile Disturbances: 1-Very Mild Itch/Numbness Auditory Disturbances: 0-None Visual Disturbances: 0-None Headache: 2-Mild CIWA-Ar Total Score: 11 S Progress Note (SOAP) Subjective: alert,irritable,anxious,interrupted sleep,nausea,body ache Objective: 10/17/19 10:43 Vital Signs Temperature 97.1 F L 10/17/19 08:54 Pulse Rate 45 L 10/17/19 08:54 Respiratory Rate 18 10/17/19 08:54 Blood Pressure 78/49 L 10/17/19 08:54 O2 Sat by Pulse Oximetry (%) 99 10/17/19 06:30 10/17/19 10:44 labs pending Assessment: 10/17/19 10:44 withdrawal symptom Plan: low bp encourage oral fluid,monitoring vital signs,to hold off medications,ensure plus 120 mls po bid
[2019-10-17 11:38] LABS: HEMATOCRIT 38.5 % (35.4-49); MCH 22.1 pg (25.7-33.7); MCHC 31.1 g/dl (32.0-35.9); MEAN CELL VOLUME 71.1 fl (80-96); MEAN PLT VOLUME 10.6 fl (7.5-11.1); PLATELET COUNT 221 K/MM3 (134-434); RBC 5.41 M/mm3 (4.00-5.60); RDW 18.4 % (11.9-15.9); WHITE BLOOD COUNT 4.2 K/mm3 (4.0-10.0)
[2019-10-17 11:46] LABS: BILIRUBIN,TOTAL 0.4 mg/dL (0.2-1); BLOOD UREA NITROGEN 21.4 mg/dL (7-18); CALCIUM 8.9 mg/dL (8.5-10.1); CREATININE 1.3 mg/dL (0.55-1.3); TOT PROT 5.8 g/dl (6.4-8.2)
--- NOTE | 2019-10-17 12:46 | CONSULT ---
[facility] Psychiatric Consult - Data Date of interview: 10/17/19 Admission source: [facility] Identifying data: Revisit to [facility] and admission to [address] [place] [address] for this 59 y/o AA male self-referred for detoxification treatment. LELE issues : alcohol and crack/cocaine. Patient is single, a father of three, undomiciled (resides in a nursing home), unemployed and supported on [employer] benefits. Substance Abuse History: Smoking history: Never smoked. Have you smoked in the past 12 months: No. Hx Chewing Tobacco Use: No. Initiated information on smoking cessation: No. Substance & Tx. History. Hx Alcohol Use: Yes. Hx Substance Use: Yes. Substance Use Type: Alcohol, Cocaine. Hx Substance Use Treatment: Yes. Substances abused. Alcohol. Other (specify): beer, liqour and presley. Substance route: Oral. Amount used: 4 22oz and 4 cans of presley and 1/2 pint of liqour. Age of first use: 16. Date of last use: 10/16/19. Cocaine. Substance route: Smoking. Frequency: Daily. Amount used: $100. Age of first use: 29. Date of last use: 10/15/19 Medical History: Medical profile is remarkable for the presence of an implantable cardioverter defibrillator (ICD) in left chest wall, thalassemia, hypertension, CHF (congestive heart failure), GERD and benign prostatic hyperplasia (BPH). Psychiatric History: No reported history of psychiatric hospitalizations. Patient has his first contact with a mental health care provider in 2002 (admission to [facility]). Mr Santa got diagnosed with Schizoaffective Disorder and prescribed, at the time, seroquel + wellbutrin (doses unknown). Patient used to see a psychiatrist at the [facility]. He is now getting his outpatient psychiatric services at the [facility] in [facility] Currently maintained on a regimen of seroquel 100 mg/hs + buspar 5mg/bid + klonopin 0.5 mg/hs. Patient denies history of suicide attempts. Physical/Sexual Abuse/Trauma History: Patient denies. Additional Comment: Urine drug screen results: OSWALDO-Cocaine. Noted. Mental Status Exam - Mental Status Exam Alert and Oriented to: Time, Place, Person Cognitive Function: Good Patient Appearance: Well Groomed Mood: Withdrawn Affect: Appropriate, Normal Range Patient Behavior: Fatigued, Appropriate, Cooperative Speech Pattern: Clear, Appropriate Voice Loudness: Normal Thought Process: Intact, Goal Oriented Thought Disorder: Not Present Hallucinations: Denies Suicidal Ideation: Denies Homicidal Ideation: Denies Insight/Judgement: Poor Sleep: Poorly, Difficulty falling asleep Appetite: Good Gait/Station: Other (not observed; resting comfortably in bed) Psychiatric Findings - Problem List ([place] 1, 2,3) (1) Alcohol use disorder Current Visit: Yes Status: Chronic (2) Cocaine dependence Current Visit: Yes Status: Chronic Qualifiers: Substance use status: uncomplicated Qualified Code(s): F14.20 - Cocaine dependence, uncomplicated (3) Substance induced mood disorder Current Visit: Yes Status: Suspected (4) Schizoaffective disorder Current Visit: Yes Status: Chronic (5) Insomnia Current Visit: Yes Status: Chronic - Initial Treatment Plan Initial Treatment Plan: Psychoeducation. Sleep hygiene. Support. Detoxification in progress. Resumed, at the patient's request : seroquel 100 mg po hs + buspar 5 mg po bid. Side effects/benefits of both drugs are discussed with the patient. Informed consent (verbal) granted to MD. Rucker
[2019-10-17] MEDS ORDERED: NITROGLYCERIN SUBLINGUAL 1/150 0.4 MG TAB SL PRN (19:59)
[2019-10-17] MEDS: NITROGLYCERIN SUBLINGUAL 1/150 0.4 MG TAB SL SCH (20:07)
[2019-10-17] MEDS: QUEtiapine FUMARATE 100 MG TABLET (FP) PO SCH (22:27)
[2019-10-17] MEDS: ATORVASTATIN CA 40 MG TABLET (FP) PO SCH (22:27)
[2019-10-17] MEDS: THIAMINE HCL 100 MG TABLET (FP) PO SCH (22:27)
[2019-10-17] MEDS: busPIRone HCL 5 MG TABLET PO SCH (22:27)
[2019-10-17] MEDS: MELATONIN 5 MG TABLETS PO SCH (22:28)
[2019-10-18] MEDS: chlordiazePOXIDE 5 MG CAPSULE PO SCH ×3 (05:32→21:49)
[2019-10-18] MEDS: ASPIRIN 81 MG CHEWABLE TABLETS PO SCH (10:10)
[2019-10-18] MEDS: busPIRone HCL 5 MG TABLET PO SCH ×2 (10:10→21:49)
[2019-10-18] MEDS: PRENATAL VITAMINS W/ FOLIC ACID TABLET (FP) PO SCH (10:10)
[2019-10-18] MEDS: FUROSEMIDE 20 MG TABLET (FP) PO SCH (10:11)
[2019-10-18] MEDS: SACUBITRIL/VALSARTAN 97 MG-103 MG TABLET PO SCH ×2 (10:11→21:50)
[2019-10-18] MEDS: NICOTINE 7 MG/24 HOURS TOPICAL PATCH TD SCH (10:11)
--- NOTE | 2019-10-18 10:11 | PN ---
[facility] CIWA - CIWA Score Nausea/Vomitin-Mild Nausea/No Vomiting Muscle Tremors: 2 Anxiety: 2 Agitation: 2 Paroxysmal Sweats: No Perspiration Orientation: 0-Oriented Tacttile Disturbances: 1-Very Mild Itch/Numbness Auditory Disturbances: 0-None Visual Disturbances: 0-None Headache: 1-Very Mild CIWA-Ar Total Score: 9 S Progress Note (SOAP) Subjective: alert,irritable,anxious,interrupted sleep,pain in the body Objective: 10/18/19 10:09 Laboratory Last Values WBC 4.2 K/mm3 (4.0-10.0) 10/17/19 08:15 RBC 5.41 M/mm3 (4.00-5.60) 10/17/19 08:15 Hgb 12.0 GM/dL (11.7-16.9) 10/17/19 08:15 Hct 38.5 % (35.4-49) 10/17/19 08:15 MCV 71.1 fl (80-96) L 10/17/19 08:15 MCH 22.1 pg (25.7-33.7) L 10/17/19 08:15 MCHC 31.1 g/dl (32.0-35.9) L 10/17/19 08:15 RDW 18.4 % (11.9-15.9) H 10/17/19 08:15 Plt Count 221 K/MM3 (134-434) 10/17/19 08:15 MPV 10.6 fl (7.5-11.1) D 10/17/19 08:15 Sodium 143 mmol/L (136-145) 10/17/19 08:15 Potassium 4.0 mmol/L (3.5-5.1) 10/17/19 08:15 Chloride 107 mmol/L (98-107) 10/17/19 08:15 Carbon Dioxide 28 mmol/L (21-32) 10/17/19 08:15 Anion Gap 8 MMOL/L (8-16) 10/17/19 08:15 BUN 21.4 mg/dL (7-18) H 10/17/19 08:15 Creatinine 1.3 mg/dL (0.55-1.3) 10/17/19 08:15 Est GFR (CKD-EPI)AfAm 69.71 10/17/19 08:15 Est GFR (CKD-EPI)NonAf 60.14 10/17/19 08:15 Random Glucose 80 mg/dL (74-106) 10/17/19 08:15 Calcium 8.9 mg/dL (8.5-10.1) 10/17/19 08:15 Total Bilirubin 0.4 mg/dL (0.2-1) 10/17/19 08:15 AST 31 U/L (15-37) 10/17/19 08:15 ALT 45 U/L (13-61) 10/17/19 08:15 Alkaline Phosphatase 80 U/L (45-117) 10/17/19 08:15 Total Protein 5.8 g/dl (6.4-8.2) L 10/17/19 08:15 Albumin 3.0 g/dl (3.4-5.0) L 10/17/19 08:15 Syphilis Serology Non-reactive (NONREACTIVE) 10/17/19 08:15 HIV Ag/Ab Combo Qual Negative (NEGATIVE) 10/17/19 08:15 10/18/19 10:09 Vital Signs Temperature 97.1 F L 10/18/19 08:50 Pulse Rate 94 H 10/18/19 08:51 Respiratory Rate 18 10/18/19 08:50 Blood Pressure 83/61 L 10/18/19 08:51 O2 Sat by Pulse Oximetry (%) 99 10/18/19 05:59 Assessment: 10/18/19 10:10 withdrawal symptom Plan: continue detox librium regimen,encourage oral fluid,close monitoring of vital signs
[2019-10-18] MEDS: THIAMINE HCL 100 MG TABLET (FP) PO SCH (21:49)
[2019-10-18] MEDS: ATORVASTATIN CA 40 MG TABLET (FP) PO SCH (21:49)
[2019-10-18] MEDS: QUEtiapine FUMARATE 100 MG TABLET (FP) PO SCH (21:49)
[2019-10-18] MEDS: MELATONIN 5 MG TABLETS PO SCH (21:54)
[2019-10-19] MEDS ORDERED: chlordiazePOXIDE HCL 10 MG CAPSULE PO PRN
[2019-10-19] MEDS: chlordiazePOXIDE HCL 10 MG CAPSULE PO SCH ×3 (05:52→22:08)
[2019-10-19] MEDS: ASPIRIN 81 MG CHEWABLE TABLETS PO SCH (10:07)
[2019-10-19] MEDS: busPIRone HCL 5 MG TABLET PO SCH ×2 (10:07→22:09)
[2019-10-19] MEDS: SACUBITRIL/VALSARTAN 97 MG-103 MG TABLET PO SCH ×2 (10:07→22:09)
[2019-10-19] MEDS: PRENATAL VITAMINS W/ FOLIC ACID TABLET (FP) PO SCH (10:07)
[2019-10-19] MEDS: NICOTINE 7 MG/24 HOURS TOPICAL PATCH TD SCH (10:08)
[2019-10-19] MEDS: FUROSEMIDE 20 MG TABLET (FP) PO SCH (10:08)
--- NOTE | 2019-10-19 10:39 | PN ---
[facility] CIWA - CIWA Score Nausea/Vomitin-Mild Nausea/No Vomiting Muscle Tremors: 2 Anxiety: 2 Agitation: 1-Slight > Activity Paroxysmal Sweats: No Perspiration Orientation: 0-Oriented Tacttile Disturbances: 0-None Auditory Disturbances: 0-None Visual Disturbances: 0-None Headache: 1-Very Mild CIWA-Ar Total Score: 7 S Progress Note (SOAP) Subjective: alert,irritable,anxious,interrupted sleep,pain in the body Objective: 10/19/19 10:37 Vital Signs Temperature 97.8 F 10/19/19 08:44 Pulse Rate 93 H 10/19/19 08:44 Respiratory Rate 20 10/19/19 08:44 Blood Pressure 94/61 10/19/19 08:44 O2 Sat by Pulse Oximetry (%) 97 10/19/19 06:09 10/19/19 10:38 Laboratory Last Values WBC 4.2 K/mm3 (4.0-10.0) 10/17/19 08:15 RBC 5.41 M/mm3 (4.00-5.60) 10/17/19 08:15 Hgb 12.0 GM/dL (11.7-16.9) 10/17/19 08:15 Hct 38.5 % (35.4-49) 10/17/19 08:15 MCV 71.1 fl (80-96) L 10/17/19 08:15 MCH 22.1 pg (25.7-33.7) L 10/17/19 08:15 MCHC 31.1 g/dl (32.0-35.9) L 10/17/19 08:15 RDW 18.4 % (11.9-15.9) H 10/17/19 08:15 Plt Count 221 K/MM3 (134-434) 10/17/19 08:15 MPV 10.6 fl (7.5-11.1) D 10/17/19 08:15 Sodium 143 mmol/L (136-145) 10/17/19 08:15 Potassium 4.0 mmol/L (3.5-5.1) 10/17/19 08:15 Chloride 107 mmol/L (98-107) 10/17/19 08:15 Carbon Dioxide 28 mmol/L (21-32) 10/17/19 08:15 Anion Gap 8 MMOL/L (8-16) 10/17/19 08:15 BUN 21.4 mg/dL (7-18) H 10/17/19 08:15 Creatinine 1.3 mg/dL (0.55-1.3) 10/17/19 08:15 Est GFR (CKD-EPI)AfAm 69.71 10/17/19 08:15 Est GFR (CKD-EPI)NonAf 60.14 10/17/19 08:15 Random Glucose 80 mg/dL (74-106) 10/17/19 08:15 Calcium 8.9 mg/dL (8.5-10.1) 10/17/19 08:15 Total Bilirubin 0.4 mg/dL (0.2-1) 10/17/19 08:15 AST 31 U/L (15-37) 10/17/19 08:15 ALT 45 U/L (13-61) 10/17/19 08:15 Alkaline Phosphatase 80 U/L (45-117) 10/17/19 08:15 Total Protein 5.8 g/dl (6.4-8.2) L 10/17/19 08:15 Albumin 3.0 g/dl (3.4-5.0) L 10/17/19 08:15 Syphilis Serology Non-reactive (NONREACTIVE) 10/17/19 08:15 COVID-19 (HILDA) Not detected (Not Detected) 10/16/19 05:45 HIV Ag/Ab Combo Qual Negative (NEGATIVE) 10/17/19 08:15 Assessment: 10/19/19 10:39 withdrawal symptom Plan: continue detox ,discharge in am
--- NOTE | 2019-10-19 10:47 | PN ---
[facility] Progress Note Note: Vital Signs Temperature 97.8 F 10/19/19 08:44 Pulse Rate 93 H 10/19/19 08:44 Respiratory Rate 20 10/19/19 08:44 Blood Pressure 94/61 10/19/19 08:44 O2 Sat by Pulse Oximetry (%) 97 10/19/19 06:09 will hold lasix 20 mgs today close monitoring of vital signs
[2019-10-19] MEDS: ATORVASTATIN CA 40 MG TABLET (FP) PO SCH (22:08)
[2019-10-19] MEDS: QUEtiapine FUMARATE 100 MG TABLET (FP) PO SCH (22:09)
[2019-10-19] MEDS: MELATONIN 5 MG TABLETS PO SCH (22:09)
[2019-10-19] MEDS: THIAMINE HCL 100 MG TABLET (FP) PO SCH (22:09)
[2019-10-20] MEDS ORDERED: chlordiazePOXIDE HCL 10 MG CAPSULE PO ONE (05:00)
[2019-10-20 08:50] VITALS: BP 101/65; PULSE 78; TEMP 97.3
--- NOTE | 2019-10-20 11:05 | PN ---
[facility] CIWA - CIWA Score Nausea/Vomitin-No Nausea/No Vomiting Muscle Tremors: None Anxiety: 1-Mildly Anxious Agitation: 0-Normal Activity Paroxysmal Sweats: No Perspiration Orientation: 0-Oriented Tacttile Disturbances: 0-None Auditory Disturbances: 0-None Visual Disturbances: 0-None Headache: 0-None Present CIWA-Ar Total Score: 1 S Progress Note (SOAP) Subjective: alert,no complaint Objective: 10/20/19 11:03 Vital Signs Temperature 97.3 F L 10/20/19 08:42 Pulse Rate 78 10/20/19 08:42 Respiratory Rate 18 10/20/19 08:42 Blood Pressure 101/65 10/20/19 08:42 O2 Sat by Pulse Oximetry (%) 97 10/20/19 06:28 Assessment: 10/20/19 11:03 detox completed,no withdrawal symptom Plan: stable for discharge today,follow up with after care program as arrangement
--- NOTE | 2019-10-20 11:06 | DS ---
[facility] Detox Discharge Summary Admission Date: 10/16/19 Discharge Date: 10/20/19 - History Present History: Alcohol Dependence, Cannabis Dependence Additional Comments: alert,oriented x 3 ambulation on the unit icd in place left chest wall lung clear on auscultation bilaterally no swelling of legs stable for discharge,no withdrawal symptom,detox completed [facility] in good condition left the unit in stable condition follow up with after care program out patient as arrangement total time spending 35 minutes Pertinent Past History: hypertension icd in place chf schizoaffective disorder - Physical Exam Results Vital Signs: Vital Signs Temperature 97.3 F L 10/20/19 08:42 Pulse Rate 78 10/20/19 08:42 Respiratory Rate 18 10/20/19 08:42 Blood Pressure 101/65 10/20/19 08:42 O2 Sat by Pulse Oximetry (%) 97 10/20/19 06:28 Laboratory Last Values WBC 4.2 K/mm3 (4.0-10.0) 10/17/19 08:15 RBC 5.41 M/mm3 (4.00-5.60) 10/17/19 08:15 Hgb 12.0 GM/dL (11.7-16.9) 10/17/19 08:15 Hct 38.5 % (35.4-49) 10/17/19 08:15 MCV 71.1 fl (80-96) L 10/17/19 08:15 MCH 22.1 pg (25.7-33.7) L 10/17/19 08:15 MCHC 31.1 g/dl (32.0-35.9) L 10/17/19 08:15 RDW 18.4 % (11.9-15.9) H 10/17/19 08:15 Plt Count 221 K/MM3 (134-434) 10/17/19 08:15 MPV 10.6 fl (7.5-11.1) D 10/17/19 08:15 Sodium 143 mmol/L (136-145) 10/17/19 08:15 Potassium 4.0 mmol/L (3.5-5.1) 10/17/19 08:15 Chloride 107 mmol/L (98-107) 10/17/19 08:15 Carbon Dioxide 28 mmol/L (21-32) 10/17/19 08:15 Anion Gap 8 MMOL/L (8-16) 10/17/19 08:15 BUN 21.4 mg/dL (7-18) H 10/17/19 08:15 Creatinine 1.3 mg/dL (0.55-1.3) 10/17/19 08:15 Est GFR (CKD-EPI)AfAm 69.71 10/17/19 08:15 Est GFR (CKD-EPI)NonAf 60.14 10/17/19 08:15 Random Glucose 80 mg/dL (74-106) 10/17/19 08:15 Calcium 8.9 mg/dL (8.5-10.1) 10/17/19 08:15 Total Bilirubin 0.4 mg/dL (0.2-1) 10/17/19 08:15 AST 31 U/L (15-37) 10/17/19 08:15 ALT 45 U/L (13-61) 10/17/19 08:15 Alkaline Phosphatase 80 U/L (45-117) 10/17/19 08:15 Total Protein 5.8 g/dl (6.4-8.2) L 10/17/19 08:15 Albumin 3.0 g/dl (3.4-5.0) L 10/17/19 08:15 Syphilis Serology Non-reactive (NONREACTIVE) 10/17/19 08:15 COVID-19 (HILDA) Not detected (Not Detected) 10/16/19 05:45 HIV Ag/Ab Combo Qual Negative (NEGATIVE) 10/17/19 08:15 Vital Signs Temperature 97.3 F L 10/20/19 08:42 Pulse Rate 78 10/20/19 08:42 Respiratory Rate 18 10/20/19 08:42 Blood Pressure 101/65 10/20/19 08:42 O2 Sat by Pulse Oximetry (%) 97 10/20/19 06:28 Pertinent Admission Physical Exam Findings: withdrawal signs and symptom - Treatment Hospital Course: Detox Protocol Followed, Detoxed Safely, Responded well, Discharged Condition Good Patient has Accepted a Rehab Referral to: declined - Medication Discharge Medications: Ambulatory Orders Clonazepam [Klonopin] 0.5 mg PO HS 12/15/18 Quetiapine Fumarate [Seroquel] 150 mg PO BID 12/15/18 Aspirin [ASA -] 81 mg PO DAILY #14 tab.chew 12/29/18 Atorvastatin Ca [Lipitor] 1 tablet PO HS #14 tablet 12/29/18 Sacubitril/Valsartan [Entresto 97 mg-103 mg Tablet] 103 mg PO BID 03/11/19 Nitroglycerin 0.4 mg SL ASDIR 03/14/19 Buspirone HCl [Buspar -] 5 mg PO BID #60 tablet 03/22/19 Quetiapine Fumarate [Seroquel -] 150 mg PO HS #90 tablet 03/22/19 - Diagnosis (1) Alcohol dependence Status: Acute Qualifiers: Substance use status: uncomplicated Qualified Code(s): F10.20 - Alcohol dependence, uncomplicated (2) Cannabis dependence, uncomplicated Status: Acute (3) AICD (automatic cardioverter/defibrillator) present Status: Chronic (4) CHF (congestive heart failure) Status: Chronic Qualifiers: Heart failure chronicity: unspecified (5) Cannabis dependence Status: Chronic (6) Schizoaffective disorder Status: Chronic - AMA Did Patient Leave Against Medical Advice: No
--- NOTE | 2019-10-20 11:19 | PN ---
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
== END 2019-10-20 09:15 | disposition home or self-care (01) | DRG 897 ==
LOC: YASAS 14:02 → Y3N 17:16
PROVIDERS: ADMIT Allergy & Immunology; ATTEND Allergy & Immunology
PROC: HZ2ZZZZ Detoxification Services for Substance Abuse Treatment (ICD-10-PCS; principal; 2019-10-16)
DX: F10.230 Alcohol dependence with withdrawal, uncomplicated (principal); F14.20 Cocaine dependence, uncomplicated; F12.20 Cannabis dependence, uncomplicated; F25.9 Schizoaffective disorder, unspecified; F19.24 Other psychoactive substance dependence with psychoactive substance-induced mood disorder; D56.9 Thalassemia, unspecified; I11.0 Hypertensive heart disease with heart failure; I50.9 Heart failure, unspecified; K21.9 Gastro-esophageal reflux disease without esophagitis; N40.0 Benign prostatic hyperplasia without lower urinary tract symptoms; G47.00 Insomnia, unspecified; Z95.810 Presence of automatic (implantable) cardiac defibrillator; Z79.82 Long term (current) use of aspirin; Z56.0 Unemployment, unspecified; Z59.0 Homelessness
CPT/HCPCS: 36415; 80053; 85027; 86780; 87389; Q0162; U0003

== ENCOUNTER 2020-07-24 12:49 | Inpatient (IN) | payer OTHER ==
[2020-07-24 14:08] VITALS: BMI 22.1
[2020-07-24] MEDS ORDERED: LOPERAMIDE HCL 2 MG CAPSULE PO PRN (15:26)
[2020-07-24] MEDS ORDERED: ACETAMINOPHEN 325 MG TABLET (FP) PO PRN (15:26)
[2020-07-24] MEDS ORDERED: MAGNESIUM CITRATE 300 ML BOTTLE PO PRN (15:26)
[2020-07-24] MEDS ORDERED: IBUPROFEN 400 MG TABLET (FP) PO PRN (15:26)
[2020-07-24] MEDS ORDERED: MAGNESIUM HYDROX 2400MG/30ML ORAL SUSPENSION 30 ML CUP PO PRN (15:26)
[2020-07-24] MEDS ORDERED: P-EPHED 60MG/TRIPROLIDI 2.5MG TABLET PO PRN (15:26)
[2020-07-24] MEDS: TAMSULOSIN HCL 0.4 MG CAP PO SCH (16:30)
[2020-07-24] MEDS: ALBUTEROL SO4 HFA INHALER IH SCH ×2 (16:47→21:19)
[2020-07-24] MEDS: RIVAROXABAN 20 MG TABLET PO SCH (17:39)
[2020-07-24] MEDS: hydrOXYzine PAMOATE 25 MG CAPSULE (FP) PO SCH ×2 (17:39→21:18)
[2020-07-24] MEDS: MELATONIN 5 MG TABLETS PO SCH (21:17)
[2020-07-24] MEDS: THIAMINE HCL 100 MG TABLET (FP) PO SCH (21:17)
[2020-07-24] MEDS: ATORVASTATIN CA 20 MG TABLET (FP) PO SCH (21:18)
[2020-07-24] MEDS: FUROSEMIDE 40 MG TABLET (FP) PO SCH (21:50)
[2020-07-25] MEDS: ALBUTEROL SO4 HFA INHALER IH SCH ×4 (04:50→21:25)
[2020-07-25] MEDS: hydrOXYzine PAMOATE 25 MG CAPSULE (FP) PO SCH ×5 (06:12→21:24)
[2020-07-25] MEDS: PRENATAL VITAMINS W/ FOLIC ACID TABLET (FP) PO SCH (09:55)
[2020-07-25] MEDS: ASPIRIN 81 MG CHEWABLE TABLETS PO SCH (09:55)
[2020-07-25] MEDS: FUROSEMIDE 40 MG TABLET (FP) PO SCH ×2 (09:55→21:23)
[2020-07-25] MEDS: TAMSULOSIN HCL 0.4 MG CAP PO SCH (09:55)
[2020-07-25] MEDS: CARVEDILOL 3.125 MG TABLET (FP) PO SCH (09:56)
[2020-07-25] MEDS ORDERED: FOLIC ACID 1 MG TABLET (FP) PO SCH (10:00)
[2020-07-25 12:38] LABS: EPI CELLS 2 /uL (0-25.1); HEMOGLOBIN 12.3 GM/dL (11.7-16.9); HYALINE CASTS 4 /uL (0-3.1); MCHC 30.9 g/dl (32.0-35.9); MEAN CELL VOLUME 71.2 fl (80-96); MEAN PLT VOLUME 10.8 fl (7.5-11.1); PLATELET COUNT 292 K/MM3 (134-434); RBC 5.61 M/mm3 (4.00-5.60); URINE APPEARANCE CLEAR; URINE BACTERIA 117 /uL (0-1359); URINE BILIRUBIN NEGATIVE (NEGATIVE); URINE COLOR DK YELLOW; URINE GLUCOSE (UA) NEGATIVE (NEGATIVE); URINE KETONE NEGATIVE (NEGATIVE); URINE LEUK ESTERASE 1+ (NEGATIVE); URINE NITRITE NEGATIVE (NEGATIVE); URINE PROTEIN 1+ (NEGATIVE); URINE RBC 9 /uL (0-23.9); URINE WBC 216 /uL (0-25.8); WHITE BLOOD COUNT 4.5 K/mm3 (4.0-10.0)
[2020-07-25 12:58] LABS: CALCIUM 8.7 mg/dL (8.5-10.1)
[2020-07-25 12:59] LABS: ALBUMIN 3.4 g/dl (3.4-5.0); BLOOD UREA NITROGEN 26.3 mg/dL (7-18)
[2020-07-25 13:04] LABS: BILIRUBIN,TOTAL 0.8 mg/dL (0.2-1); CREATININE 1.4 mg/dL (0.55-1.3); TOT PROT 6.3 g/dl (6.4-8.2)
[2020-07-25 13:56] LABS: HIV INTERPRETATION NEGATIVE (NEGATIVE)
[2020-07-25] MEDS: RIVAROXABAN 20 MG TABLET PO SCH (17:27)
[2020-07-25] MEDS: ATORVASTATIN CA 20 MG TABLET (FP) PO SCH (21:23)
[2020-07-25] MEDS: traZODone HCL 50 MG TABLET (FP) PO SCH (21:23)
[2020-07-25] MEDS: THIAMINE HCL 100 MG TABLET (FP) PO SCH (21:24)
[2020-07-25] MEDS: MELATONIN 5 MG TABLETS PO SCH (21:24)
[2020-07-26] MEDS: ALBUTEROL SO4 HFA INHALER IH SCH ×3 (03:15→14:44)
[2020-07-26] MEDS: hydrOXYzine PAMOATE 25 MG CAPSULE (FP) PO SCH ×4 (06:29→14:44)
[2020-07-26] MEDS: TAMSULOSIN HCL 0.4 MG CAP PO SCH (10:05)
[2020-07-26] MEDS: FUROSEMIDE 40 MG TABLET (FP) PO SCH ×2 (10:06→15:46)
[2020-07-26] MEDS: ASPIRIN 81 MG CHEWABLE TABLETS PO SCH (10:06)
[2020-07-26] MEDS: PRENATAL VITAMINS W/ FOLIC ACID TABLET (FP) PO SCH (10:06)
[2020-07-26] MEDS: CARVEDILOL 3.125 MG TABLET (FP) PO SCH (10:06)
[2020-07-26] MEDS: RIVAROXABAN 20 MG TABLET PO SCH (18:01)
[2020-07-26] MEDS: traZODone HCL 50 MG TABLET (FP) PO SCH (21:01)
[2020-07-26] MEDS: ATORVASTATIN CA 20 MG TABLET (FP) PO SCH (21:01)
[2020-07-26] MEDS: MELATONIN 5 MG TABLETS PO SCH (21:02)
[2020-07-26] MEDS: THIAMINE HCL 100 MG TABLET (FP) PO SCH (21:02)
[2020-07-27] MEDS: hydrOXYzine PAMOATE 25 MG CAPSULE (FP) PO PRN ×4 (04:43→21:23)
[2020-07-27] MEDS: ALBUTEROL SO4 HFA INHALER IH PRN ×2 (04:44→10:07)
[2020-07-27] MEDS: FUROSEMIDE 40 MG TABLET (FP) PO SCH ×2 (06:10→13:28)
[2020-07-27] MEDS: ASPIRIN 81 MG CHEWABLE TABLETS PO SCH (10:03)
[2020-07-27] MEDS: PRENATAL VITAMINS W/ FOLIC ACID TABLET (FP) PO SCH (10:03)
[2020-07-27] MEDS: TAMSULOSIN HCL 0.4 MG CAP PO SCH (10:03)
[2020-07-27] MEDS: CARVEDILOL 3.125 MG TABLET (FP) PO SCH (10:04)
[2020-07-27] MEDS ORDERED: NITROGLYCERIN SUBLINGUAL 1/200 0.3 MG BTL SL PRN (10:19)
[2020-07-27] MEDS ORDERED: NITROGLYCERIN SUBLINGUAL 1/150 0.4 MG TAB SL PRN (10:28)
[2020-07-27] MEDS: guaiFENesin 200 MG/10 ML 10 ML UNIT-DOSE CUPS PO PRN ×2 (13:52→21:24)
[2020-07-27] MEDS: RIVAROXABAN 20 MG TABLET PO SCH (18:20)
[2020-07-27] MEDS: MELATONIN 5 MG TABLETS PO SCH (21:23)
[2020-07-27] MEDS: THIAMINE HCL 100 MG TABLET (FP) PO SCH (21:23)
[2020-07-27] MEDS: ATORVASTATIN CA 20 MG TABLET (FP) PO SCH (21:23)
[2020-07-27] MEDS: traZODone HCL 50 MG TABLET (FP) PO SCH (21:23)
[2020-07-27] MEDS: DOCUSATE SODIUM 100 MG CAPSULE (FP) PO SCH (21:24)
[2020-07-28] MEDS: FUROSEMIDE 40 MG TABLET (FP) PO SCH ×2 (06:35→13:51)
[2020-07-28] MEDS: PRENATAL VITAMINS W/ FOLIC ACID TABLET (FP) PO SCH (09:31)
[2020-07-28] MEDS: TAMSULOSIN HCL 0.4 MG CAP PO SCH (09:31)
[2020-07-28] MEDS: hydrOXYzine PAMOATE 25 MG CAPSULE (FP) PO PRN ×3 (09:31→21:08)
[2020-07-28] MEDS: ASPIRIN 81 MG CHEWABLE TABLETS PO SCH (09:32)
[2020-07-28] MEDS: CARVEDILOL 3.125 MG TABLET (FP) PO SCH (09:32)
[2020-07-28] MEDS: guaiFENesin 200 MG/10 ML 10 ML UNIT-DOSE CUPS PO PRN ×2 (09:33→21:08)
[2020-07-28] MEDS: ALBUTEROL SO4 HFA INHALER IH PRN (09:35)
[2020-07-28 10:11] LABS: SARS-CoV-2 NAA Not Detected (Not Detected)
[2020-07-28] MEDS: RIVAROXABAN 20 MG TABLET PO SCH (18:14)
[2020-07-28] MEDS: MELATONIN 5 MG TABLETS PO SCH (21:07)
[2020-07-28] MEDS: DOCUSATE SODIUM 100 MG CAPSULE (FP) PO SCH (21:07)
[2020-07-28] MEDS: THIAMINE HCL 100 MG TABLET (FP) PO SCH (21:07)
[2020-07-28] MEDS: ATORVASTATIN CA 20 MG TABLET (FP) PO SCH (21:07)
[2020-07-28] MEDS: traZODone HCL 50 MG TABLET (FP) PO SCH (21:07)
[2020-07-29] MEDS ORDERED: MASKS NR ONE (05:55)
[2020-07-29] MEDS: FUROSEMIDE 40 MG TABLET (FP) PO SCH ×2 (06:04→14:42)
[2020-07-29] MEDS: guaiFENesin 200 MG/10 ML 10 ML UNIT-DOSE CUPS PO PRN ×3 (06:06→21:48)
[2020-07-29] MEDS: hydrOXYzine PAMOATE 25 MG CAPSULE (FP) PO PRN ×4 (06:08→21:48)
[2020-07-29] MEDS: TAMSULOSIN HCL 0.4 MG CAP PO SCH (09:54)
[2020-07-29] MEDS: ASPIRIN 81 MG CHEWABLE TABLETS PO SCH (09:54)
[2020-07-29] MEDS: PRENATAL VITAMINS W/ FOLIC ACID TABLET (FP) PO SCH (09:54)
[2020-07-29] MEDS: CARVEDILOL 3.125 MG TABLET (FP) PO SCH (09:55)
[2020-07-29] MEDS: RIVAROXABAN 20 MG TABLET PO SCH (17:18)
[2020-07-29] MEDS: traZODone HCL 50 MG TABLET (FP) PO SCH (21:45)
[2020-07-29] MEDS: DOCUSATE SODIUM 100 MG CAPSULE (FP) PO SCH (21:46)
[2020-07-29] MEDS: MELATONIN 5 MG TABLETS PO SCH (21:46)
[2020-07-29] MEDS: THIAMINE HCL 100 MG TABLET (FP) PO SCH (21:46)
[2020-07-29] MEDS: ATORVASTATIN CA 20 MG TABLET (FP) PO SCH (21:47)
[2020-07-30] MEDS: FUROSEMIDE 40 MG TABLET (FP) PO SCH ×2 (06:29→14:21)
[2020-07-30] MEDS: CARVEDILOL 3.125 MG TABLET (FP) PO SCH (10:09)
[2020-07-30] MEDS: PRENATAL VITAMINS W/ FOLIC ACID TABLET (FP) PO SCH (10:09)
[2020-07-30] MEDS: TAMSULOSIN HCL 0.4 MG CAP PO SCH (10:09)
[2020-07-30] MEDS: ASPIRIN 81 MG CHEWABLE TABLETS PO SCH (10:09)
[2020-07-30] MEDS: guaiFENesin 200 MG/10 ML 10 ML UNIT-DOSE CUPS PO PRN (10:10)
[2020-07-30] MEDS ORDERED: COLLOIDAL OATMEAL 1 BAR EACH TP PRN (11:31)
[2020-07-30] MEDS: RIVAROXABAN 20 MG TABLET PO SCH (18:02)
[2020-07-30] MEDS: MELATONIN 5 MG TABLETS PO SCH (21:13)
[2020-07-30] MEDS: THIAMINE HCL 100 MG TABLET (FP) PO SCH (21:13)
[2020-07-30] MEDS: ATORVASTATIN CA 20 MG TABLET (FP) PO SCH (21:14)
[2020-07-30] MEDS: DOCUSATE SODIUM 100 MG CAPSULE (FP) PO SCH (21:15)
[2020-07-30] MEDS: traZODone HCL 100 MG TABLET (FP) PO SCH (21:15)
[2020-07-30] MEDS: hydrOXYzine PAMOATE 25 MG CAPSULE (FP) PO PRN (21:16)
[2020-07-30] MEDS: MAG HYDROX/AL HYDROX/SIMETH 30 ML UNIT-DOSE CUP PO PRN (21:16)
[2020-07-30] MEDS: MINERAL OIL/PETROLAT/WATER TOPICAL CREAM 113 GM JAR TP SCH (21:17)
[2020-07-31] MEDS: FUROSEMIDE 40 MG TABLET (FP) PO SCH (06:08)
[2020-07-31 09:38] LABS: CALCIUM 8.6 mg/dL (8.5-10.1)
[2020-07-31 09:39] LABS: ALBUMIN 2.9 g/dl (3.4-5.0); BLOOD UREA NITROGEN 20.8 mg/dL (7-18)
[2020-07-31 09:40] LABS: CREATININE 1.1 mg/dL (0.55-1.3)
[2020-07-31 09:41] LABS: BILIRUBIN,TOTAL 0.4 mg/dL (0.2-1); TOT PROT 5.8 g/dl (6.4-8.2)
[2020-07-31] MEDS: PRENATAL VITAMINS W/ FOLIC ACID TABLET (FP) PO SCH (09:50)
[2020-07-31] MEDS: CARVEDILOL 3.125 MG TABLET (FP) PO SCH ×3 (09:50→21:24)
[2020-07-31] MEDS: TAMSULOSIN HCL 0.4 MG CAP PO SCH (09:50)
[2020-07-31] MEDS: hydrOXYzine PAMOATE 25 MG CAPSULE (FP) PO PRN ×2 (09:50→21:25)
[2020-07-31] MEDS: ASPIRIN 81 MG CHEWABLE TABLETS PO SCH (09:50)
[2020-07-31] MEDS: MINERAL OIL/PETROLAT/WATER TOPICAL CREAM 113 GM JAR TP SCH ×2 (09:59→21:25)
[2020-07-31] MEDS: FUROSEMIDE 20 MG TABLET (FP) PO SCH ×2 (10:29→14:51)
[2020-07-31] MEDS ORDERED: PT OWN MED DRAWER 7, Y5N ONE (16:35)
[2020-07-31] MEDS: RIVAROXABAN 20 MG TABLET PO SCH (17:16)
[2020-07-31] MEDS: THIAMINE HCL 100 MG TABLET (FP) PO SCH (21:23)
[2020-07-31] MEDS: MELATONIN 5 MG TABLETS PO SCH (21:23)
[2020-07-31] MEDS: ATORVASTATIN CA 20 MG TABLET (FP) PO SCH (21:24)
[2020-07-31] MEDS: traZODone HCL 100 MG TABLET (FP) PO SCH (21:24)
[2020-07-31] MEDS: DOCUSATE SODIUM 100 MG CAPSULE (FP) PO SCH (21:25)
[2020-08-01] MEDS: FUROSEMIDE 20 MG TABLET (FP) PO SCH ×2 (06:05→14:31)
[2020-08-01] MEDS: PRENATAL VITAMINS W/ FOLIC ACID TABLET (FP) PO SCH (10:05)
[2020-08-01] MEDS: hydrOXYzine PAMOATE 25 MG CAPSULE (FP) PO PRN ×2 (10:05→21:08)
[2020-08-01] MEDS: TAMSULOSIN HCL 0.4 MG CAP PO SCH (10:06)
[2020-08-01] MEDS: ASPIRIN 81 MG CHEWABLE TABLETS PO SCH (10:06)
[2020-08-01] MEDS: CARVEDILOL 3.125 MG TABLET (FP) PO SCH ×2 (10:06→21:07)
[2020-08-01] MEDS: MINERAL OIL/PETROLAT/WATER TOPICAL CREAM 113 GM JAR TP SCH ×2 (10:07→21:09)
[2020-08-01] MEDS: RIVAROXABAN 20 MG TABLET PO SCH (17:36)
[2020-08-01] MEDS: traZODone HCL 100 MG TABLET (FP) PO SCH (21:07)
[2020-08-01] MEDS: MELATONIN 5 MG TABLETS PO SCH (21:07)
[2020-08-01] MEDS: THIAMINE HCL 100 MG TABLET (FP) PO SCH (21:07)
[2020-08-01] MEDS: ATORVASTATIN CA 20 MG TABLET (FP) PO SCH (21:07)
[2020-08-01] MEDS: guaiFENesin 200 MG/10 ML 10 ML UNIT-DOSE CUPS PO PRN (21:08)
[2020-08-01] MEDS: DOCUSATE SODIUM 100 MG CAPSULE (FP) PO SCH (21:09)
[2020-08-02] MEDS: FUROSEMIDE 20 MG TABLET (FP) PO SCH ×2 (05:50→14:54)
[2020-08-02] MEDS: PRENATAL VITAMINS W/ FOLIC ACID TABLET (FP) PO SCH (10:18)
[2020-08-02] MEDS: TAMSULOSIN HCL 0.4 MG CAP PO SCH (10:19)
[2020-08-02] MEDS: hydrOXYzine PAMOATE 25 MG CAPSULE (FP) PO PRN ×2 (10:19→21:27)
[2020-08-02] MEDS: ASPIRIN 81 MG CHEWABLE TABLETS PO SCH (10:19)
[2020-08-02] MEDS: CARVEDILOL 3.125 MG TABLET (FP) PO SCH ×2 (10:19→21:26)
[2020-08-02] MEDS: MINERAL OIL/PETROLAT/WATER TOPICAL CREAM 113 GM JAR TP SCH ×2 (10:20→21:26)
[2020-08-02] MEDS: ALBUTEROL SO4 HFA INHALER IH PRN (13:30)
[2020-08-02] MEDS ORDERED: MASKS NR ONE (16:16)
[2020-08-02] MEDS ORDERED: PT OWN MED DRAWER 7, Y5N ONE ×2 (17:59→20:56)
[2020-08-02] MEDS: RIVAROXABAN 20 MG TABLET PO SCH (18:06)
[2020-08-02] MEDS: THIAMINE HCL 100 MG TABLET (FP) PO SCH (21:24)
[2020-08-02] MEDS: MELATONIN 5 MG TABLETS PO SCH (21:25)
[2020-08-02] MEDS: ATORVASTATIN CA 20 MG TABLET (FP) PO SCH (21:25)
[2020-08-02] MEDS: traZODone HCL 100 MG TABLET (FP) PO SCH (21:25)
[2020-08-02] MEDS: DOCUSATE SODIUM 100 MG CAPSULE (FP) PO SCH (21:25)
[2020-08-03] MEDS ORDERED: FUROSEMIDE 20 MG TABLET (FP) PO SCH (10:00)
[2020-08-03] MEDS: ALBUTEROL SO4 HFA INHALER IH PRN (10:34)
[2020-08-03] MEDS: ASPIRIN 81 MG CHEWABLE TABLETS PO SCH (10:36)
[2020-08-03] MEDS: hydrOXYzine PAMOATE 25 MG CAPSULE (FP) PO PRN ×3 (10:36→21:10)
[2020-08-03] MEDS: MINERAL OIL/PETROLAT/WATER TOPICAL CREAM 113 GM JAR TP SCH ×2 (10:36→22:39)
[2020-08-03] MEDS: TAMSULOSIN HCL 0.4 MG CAP PO SCH (10:37)
[2020-08-03] MEDS: PRENATAL VITAMINS W/ FOLIC ACID TABLET (FP) PO SCH (10:37)
[2020-08-03] MEDS ORDERED: PT OWN MED DRAWER 7, Y5N ONE ×2 (11:34→16:42)
[2020-08-03] MEDS: CARVEDILOL 3.125 MG TABLET (FP) PO SCH ×2 (11:45→21:10)
[2020-08-03] MEDS: FUROSEMIDE 20 MG TABLET (FP) PO SCH (17:13)
[2020-08-03] MEDS: RIVAROXABAN 20 MG TABLET PO SCH (17:13)
[2020-08-03] MEDS: MAG HYDROX/AL HYDROX/SIMETH 30 ML UNIT-DOSE CUP PO PRN (17:15)
[2020-08-03] MEDS: traZODone HCL 100 MG TABLET (FP) PO SCH (21:10)
[2020-08-03] MEDS: MELATONIN 5 MG TABLETS PO SCH (21:10)
[2020-08-03] MEDS: DOCUSATE SODIUM 100 MG CAPSULE (FP) PO SCH (21:10)
[2020-08-03] MEDS: ATORVASTATIN CA 20 MG TABLET (FP) PO SCH (21:10)
[2020-08-03] MEDS: THIAMINE HCL 100 MG TABLET (FP) PO SCH (22:39)
[2020-08-04] MEDS ORDERED: PT OWN MED DRAWER 7, Y5N ONE ×3 (08:59→17:09)
[2020-08-04] MEDS: MINERAL OIL/PETROLAT/WATER TOPICAL CREAM 113 GM JAR TP SCH ×2 (10:11→21:33)
[2020-08-04] MEDS: TAMSULOSIN HCL 0.4 MG CAP PO SCH (10:11)
[2020-08-04] MEDS: CARVEDILOL 3.125 MG TABLET (FP) PO SCH ×2 (10:11→21:33)
[2020-08-04] MEDS: ASPIRIN 81 MG CHEWABLE TABLETS PO SCH (10:11)
[2020-08-04] MEDS: PRENATAL VITAMINS W/ FOLIC ACID TABLET (FP) PO SCH (10:11)
[2020-08-04] MEDS: FUROSEMIDE 20 MG TABLET (FP) PO SCH ×2 (10:11→15:48)
[2020-08-04] MEDS: MAG HYDROX/AL HYDROX/SIMETH 30 ML UNIT-DOSE CUP PO PRN ×2 (10:12→21:35)
[2020-08-04] MEDS: hydrOXYzine PAMOATE 25 MG CAPSULE (FP) PO PRN ×3 (10:12→21:34)
[2020-08-04] MEDS: RIVAROXABAN 20 MG TABLET PO SCH (18:51)
[2020-08-04] MEDS: THIAMINE HCL 100 MG TABLET (FP) PO SCH (21:32)
[2020-08-04] MEDS: DOCUSATE SODIUM 100 MG CAPSULE (FP) PO SCH (21:33)
[2020-08-04] MEDS: MELATONIN 5 MG TABLETS PO SCH (21:34)
[2020-08-04] MEDS: traZODone HCL 100 MG TABLET (FP) PO SCH (21:34)
[2020-08-04] MEDS: ATORVASTATIN CA 20 MG TABLET (FP) PO SCH (21:36)
[2020-08-05] MEDS ORDERED: PT OWN MED DRAWER 7, Y5N ONE ×3 (08:52→17:35)
[2020-08-05] MEDS: ASPIRIN 81 MG CHEWABLE TABLETS PO SCH (10:01)
[2020-08-05] MEDS: CARVEDILOL 3.125 MG TABLET (FP) PO SCH ×2 (10:01→21:09)
[2020-08-05] MEDS: TAMSULOSIN HCL 0.4 MG CAP PO SCH (10:01)
[2020-08-05] MEDS: MINERAL OIL/PETROLAT/WATER TOPICAL CREAM 113 GM JAR TP SCH ×2 (10:01→21:11)
[2020-08-05] MEDS: PRENATAL VITAMINS W/ FOLIC ACID TABLET (FP) PO SCH (10:01)
[2020-08-05] MEDS: FUROSEMIDE 20 MG TABLET (FP) PO SCH ×2 (10:01→16:03)
[2020-08-05] MEDS: hydrOXYzine PAMOATE 25 MG CAPSULE (FP) PO PRN ×3 (10:02→21:10)
[2020-08-05] MEDS: ALBUTEROL SO4 HFA INHALER IH PRN (10:02)
[2020-08-05] MEDS: PANTOPRAZOLE 20 MG TABLET PO SCH (12:26)
[2020-08-05] MEDS: RIVAROXABAN 20 MG TABLET PO SCH (18:25)
[2020-08-05] MEDS: THIAMINE HCL 100 MG TABLET (FP) PO SCH (21:09)
[2020-08-05] MEDS: MELATONIN 5 MG TABLETS PO SCH (21:09)
[2020-08-05] MEDS: ATORVASTATIN CA 20 MG TABLET (FP) PO SCH (21:09)
[2020-08-05] MEDS: traZODone HCL 100 MG TABLET (FP) PO SCH (21:09)
[2020-08-05] MEDS: DOCUSATE SODIUM 100 MG CAPSULE (FP) PO SCH (21:11)
[2020-08-06] MEDS: MINERAL OIL/PETROLAT/WATER TOPICAL CREAM 113 GM JAR TP SCH ×2 (10:35→22:03)
[2020-08-06] MEDS: ASPIRIN 81 MG CHEWABLE TABLETS PO SCH (10:35)
[2020-08-06] MEDS: TAMSULOSIN HCL 0.4 MG CAP PO SCH (10:35)
[2020-08-06] MEDS: hydrOXYzine PAMOATE 25 MG CAPSULE (FP) PO PRN ×2 (10:36→22:02)
[2020-08-06] MEDS: PRENATAL VITAMINS W/ FOLIC ACID TABLET (FP) PO SCH (10:36)
[2020-08-06] MEDS: CARVEDILOL 3.125 MG TABLET (FP) PO SCH ×2 (10:38→22:01)
[2020-08-06] MEDS: ALBUTEROL SO4 HFA INHALER IH PRN (10:38)
[2020-08-06] MEDS: PANTOPRAZOLE 20 MG TABLET PO SCH (10:38)
[2020-08-06] MEDS: FUROSEMIDE 20 MG TABLET (FP) PO SCH ×2 (10:38→17:27)
[2020-08-06] MEDS: RIVAROXABAN 20 MG TABLET PO SCH (17:28)
[2020-08-06] MEDS: traZODone HCL 100 MG TABLET (FP) PO SCH (22:00)
[2020-08-06] MEDS: ATORVASTATIN CA 20 MG TABLET (FP) PO SCH (22:01)
[2020-08-06] MEDS: THIAMINE HCL 100 MG TABLET (FP) PO SCH (22:02)
[2020-08-06] MEDS: DOCUSATE SODIUM 100 MG CAPSULE (FP) PO SCH (22:03)
[2020-08-06] MEDS: MELATONIN 5 MG TABLETS PO SCH (22:03)
[2020-08-07 07:17] VITALS: BP 95/75; PULSE 94; TEMP 97.3
[2020-08-07] MEDS: ALBUTEROL SO4 HFA INHALER IH PRN (08:00)
[2020-08-07] MEDS ORDERED: ALBUTEROL SO4 2.5/IPRATROPIUM 0.5 INH SOL 3 ML VIAL.NEB. NEB PRN (08:05)
[2020-08-07] MEDS: ASPIRIN 81 MG CHEWABLE TABLETS PO SCH (10:23)
[2020-08-07] MEDS: FUROSEMIDE 20 MG TABLET (FP) PO SCH (10:24)
[2020-08-07] MEDS: CARVEDILOL 3.125 MG TABLET (FP) PO SCH (10:24)
[2020-08-07] MEDS: PRENATAL VITAMINS W/ FOLIC ACID TABLET (FP) PO SCH (10:24)
[2020-08-07] MEDS: TAMSULOSIN HCL 0.4 MG CAP PO SCH (10:24)
[2020-08-07] MEDS: MINERAL OIL/PETROLAT/WATER TOPICAL CREAM 113 GM JAR TP SCH (10:24)
[2020-08-07] MEDS: PANTOPRAZOLE 20 MG TABLET PO SCH (10:24)
== END 2020-08-07 18:55 | disposition hospice, inpatient (51) | DRG 895 ==
LOC: YASAS 12:49 → Y3W 14:34
PROVIDERS: ADMIT Allergy & Immunology; ATTEND Allergy & Immunology
PROC: HZ42ZZZ Group Counseling for Substance Abuse Treatment, Cognitive-Behavioral (ICD-10-PCS; principal; 2020-07-24)
DX: F10.20 Alcohol dependence, uncomplicated (principal); F14.20 Cocaine dependence, uncomplicated; F19.282 Other psychoactive substance dependence with psychoactive substance-induced sleep disorder; I48.20 Chronic atrial fibrillation, unspecified; F12.20 Cannabis dependence, uncomplicated; F25.9 Schizoaffective disorder, unspecified; F41.1 Generalized anxiety disorder; D56.9 Thalassemia, unspecified; I11.0 Hypertensive heart disease with heart failure; I50.9 Heart failure, unspecified; K21.9 Gastro-esophageal reflux disease without esophagitis; M16.10 Unilateral primary osteoarthritis, unspecified hip; N40.0 Benign prostatic hyperplasia without lower urinary tract symptoms; R06.02 Shortness of breath; R07.9 Chest pain, unspecified; Z79.01 Long term (current) use of anticoagulants; Z95.810 Presence of automatic (implantable) cardiac defibrillator; Z99.89 Dependence on other enabling machines and devices; Z56.0 Unemployment, unspecified; Z59.0 Homelessness
CPT/HCPCS: 36415; 80053; 81003; 82962; 83036; 84132; 85027; 86780; 87389; 93005; 93010; 94640; C9803; U0003; U0005

== ENCOUNTER 2020-08-07 10:15 | Inpatient (IN) | payer OTHER ==
[2020-08-07] MEDS ORDERED: FUROSEMIDE 40 MG/4 ML INJECTABLE VIAL IVPUSH ONE ×2 (11:24→14:50)
[2020-08-07] MEDS ORDERED: FUROSEMIDE 40 MG/4 ML INJECTABLE VIAL ONE (11:34)
[2020-08-07 11:53] LABS: BASO % 0.9 % (0-2.0); EOS % 1.5 % (0-4.5); HEMATOCRIT 39.8 % (35.4-49); HEMOGLOBIN 12.5 GM/dL (11.7-16.9); LYMPH % 29.1 % (8-40); MCHC 31.3 g/dl (32.0-35.9); MEAN CELL VOLUME 70.1 fl (80-96); MEAN PLT VOLUME 9.2 fl (7.5-11.1); MONO % 11.1 % (3.8-10.2); NEUT % 57.4 % (42.8-82.8); PLATELET COUNT 242 K/MM3 (134-434); RBC 5.67 M/mm3 (4.00-5.60); RDW 17.1 % (11.9-15.9); WHITE BLOOD COUNT 5.3 K/mm3 (4.0-10.0)
[2020-08-07 12:01] LABS: INR 1.71 (0.83-1.09); PROTHROMBIN TIME (PATIENT) 20.7 SEC (9.7-13.0)
[2020-08-07 12:04] LABS: ACTIVATED PTT 32.4 SECONDS (25.2-36.5)
[2020-08-07] MEDS ORDERED: LORazepam 0.5 MG TABLET PO ONE (12:04)
[2020-08-07] MEDS ORDERED: LORazepam 0.5 MG TABLET ONE (12:11)
[2020-08-07 12:13] LABS: CHLORIDE 110 mmol/L (98-107); SODIUM 141 mmol/L (136-145)
[2020-08-07 12:15] LABS: BLOOD UREA NITROGEN 19.6 mg/dL (7-18)
[2020-08-07 12:16] LABS: ALBUMIN 3.1 g/dl (3.4-5.0); ANION GAP 5 MMOL/L (8-16); CO2 26 mmol/L (21-32); GLUCOSE,RANDOM 91 mg/dL (74-106); MAGNESIUM 2.1 mg/dL (1.8-2.4)
[2020-08-07 12:18] LABS: CREATININE 1.1 mg/dL (0.55-1.3)
[2020-08-07 12:19] LABS: PHOSPHOROUS 4.2 mg/dL (2.5-4.9); SGOT/AST 38 U/L (15-37); SGPT/ALT 55 U/L (13-61)
[2020-08-07 12:20] LABS: BILIRUBIN,TOTAL 0.5 mg/dL (0.2-1); TOT PROT 6.2 g/dl (6.4-8.2)
[2020-08-07 12:21] LABS: ALK PHOS 79 U/L (45-117)
[2020-08-07 14:00] LABS: URINE APPEARANCE CLEAR; URINE BILIRUBIN NEGATIVE (NEGATIVE); URINE COLOR YELLOW; URINE GLUCOSE (UA) NEGATIVE (NEGATIVE); URINE KETONE NEGATIVE (NEGATIVE); URINE LEUK ESTERASE NEGATIVE (NEGATIVE); URINE NITRITE NEGATIVE (NEGATIVE); URINE PROTEIN TRACE (NEGATIVE); URINE UROBILINOGEN 0.2 mg/dL (0.2-1.0)
[2020-08-07 14:01] LABS: URINE BENZODIAZEPINES NEGATIVE ng/ml (CUTOFF=200)
[2020-08-07 14:02] LABS: METHADONE, UR NEGATIVE ng/ml (CUTOFF=300); OPIATES, URI NEGATIVE ng/ml (CUTOFF=300); PHENCYCLIDINE,URINE NEGATIVE ng/ml (CUTOFF=25); URINE AMPHETAMINES NEGATIVE ng/ml (CUTOFF=500); URINE BARBITURATES NEGATIVE ng/ml (CUTOFF=200)
[2020-08-07 14:05] LABS: COCAINE, UR NEGATIVE ng/ml (CUTOFF=300)
[2020-08-07 14:25] LABS: ANISOCYTOSIS 2+; MACROCYTOSIS 0; OVALOCYTE 2+; PLATELET ESTIMATE NORMAL; TARGET CELLS 1+
[2020-08-07] MEDS ORDERED: MAGNESIUM HYDROX 2400MG/30ML ORAL SUSPENSION 30 ML CUP PO PRN (14:46)
[2020-08-07] MEDS ORDERED: MAGNESIUM CITRATE 300 ML BOTTLE PO ONE (15:00)
[2020-08-07] MEDS ORDERED: MAGNESIUM CITRATE 300 ML BOTTLE ONE (15:17)
[2020-08-07] MEDS ORDERED: DOCUSATE SODIUM 100 MG CAPSULE (FP) PO ONE (22:56)
[2020-08-07] MEDS ORDERED: ATORVASTATIN CA 20 MG TABLET (FP) ONE (22:56)
[2020-08-07] MEDS ORDERED: MELATONIN 5 MG TABLETS ONE (22:56)
[2020-08-07] MEDS: ATORVASTATIN CA 20 MG TABLET (FP) PO SCH (22:59)
[2020-08-07] MEDS: MELATONIN 5 MG TABLETS PO SCH (22:59)
[2020-08-07] MEDS: DOCUSATE SODIUM 100 MG CAPSULE (FP) PO SCH (22:59)
[2020-08-08] MEDS: RIVAROXABAN 20 MG TABLET PO SCH ×2 (00:30→17:09)
[2020-08-08 04:09] VITALS: BMI 22.8
[2020-08-08] MEDS ORDERED: LORazepam 0.5 MG TABLET PO ONE (04:30)
[2020-08-08 08:20] LABS: HEMATOCRIT 38.9 % (35.4-49); HEMOGLOBIN 12.2 GM/dL (11.7-16.9); MCH 22.1 pg (25.7-33.7); MCHC 31.4 g/dl (32.0-35.9); MEAN CELL VOLUME 70.4 fl (80-96); MEAN PLT VOLUME 9.5 fl (7.5-11.1); PLATELET COUNT 238 K/MM3 (134-434); RBC 5.52 M/mm3 (4.00-5.60); RDW 16.6 % (11.9-15.9); WHITE BLOOD COUNT 5.6 K/mm3 (4.0-10.0)
[2020-08-08 08:53] LABS: CALCIUM 9.3 mg/dL (8.5-10.1)
[2020-08-08 08:54] LABS: MAGNESIUM 2.1 mg/dL (1.8-2.4)
[2020-08-08 08:56] LABS: PHOSPHOROUS 4.5 mg/dL (2.5-4.9)
[2020-08-08 08:57] LABS: CREATININE 1.1 mg/dL (0.55-1.3)
[2020-08-08 08:58] LABS: BILIRUBIN,TOTAL 0.7 mg/dL (0.2-1); TOT PROT 6.2 g/dl (6.4-8.2)
[2020-08-08] MEDS: TAMSULOSIN HCL 0.4 MG CAP PO SCH (09:38)
[2020-08-08] MEDS: FOLIC ACID 1 MG TABLET (FP) PO SCH (09:38)
[2020-08-08] MEDS: PANTOPRAZOLE 20 MG TABLET PO SCH (09:38)
[2020-08-08] MEDS: THIAMINE HCL 100 MG TABLET (FP) PO SCH (09:38)
[2020-08-08] MEDS: ASPIRIN 81 MG CHEWABLE TABLETS PO SCH (09:38)
[2020-08-08] MEDS ORDERED: hydrOXYzine PAMOATE 25 MG CAPSULE (FP) PO PRN (17:30)
[2020-08-08] MEDS: DOCUSATE SODIUM 100 MG CAPSULE (FP) PO SCH ×2 (21:31→21:39)
[2020-08-08] MEDS: traZODone HCL 50 MG TABLET (FP) PO SCH (21:31)
[2020-08-08] MEDS: MELATONIN 5 MG TABLETS PO SCH (21:31)
[2020-08-08] MEDS: ATORVASTATIN CA 20 MG TABLET (FP) PO SCH (21:31)
[2020-08-09] MEDS: TAMSULOSIN HCL 0.4 MG CAP PO SCH (09:00)
[2020-08-09] MEDS: ASPIRIN 81 MG CHEWABLE TABLETS PO SCH (11:08)
[2020-08-09] MEDS: THIAMINE HCL 100 MG TABLET (FP) PO SCH (11:09)
[2020-08-09] MEDS: FOLIC ACID 1 MG TABLET (FP) PO SCH (11:09)
[2020-08-09] MEDS: PANTOPRAZOLE 20 MG TABLET PO SCH (11:09)
[2020-08-09] MEDS: RIVAROXABAN 20 MG TABLET PO SCH (18:04)
[2020-08-09] MEDS: ATORVASTATIN CA 20 MG TABLET (FP) PO SCH (21:05)
[2020-08-09] MEDS: traZODone HCL 50 MG TABLET (FP) PO SCH (21:05)
[2020-08-09] MEDS: MELATONIN 5 MG TABLETS PO SCH (21:05)
[2020-08-09] MEDS: DOCUSATE SODIUM 100 MG CAPSULE (FP) PO SCH (21:05)
[2020-08-09] MEDS ORDERED: MELATONIN 5 MG TABLETS PO ONE (22:29)
[2020-08-10] MEDS: PANTOPRAZOLE 20 MG TABLET PO SCH (10:35)
[2020-08-10] MEDS: THIAMINE HCL 100 MG TABLET (FP) PO SCH (10:35)
[2020-08-10] MEDS: FOLIC ACID 1 MG TABLET (FP) PO SCH (10:35)
[2020-08-10] MEDS: ASPIRIN 81 MG CHEWABLE TABLETS PO SCH (10:35)
[2020-08-10] MEDS: TAMSULOSIN HCL 0.4 MG CAP PO SCH (10:35)
[2020-08-10] MEDS: FUROSEMIDE 20 MG TABLET (FP) PO SCH (14:01)
[2020-08-10] MEDS ORDERED: ALPRAZolam 1 MG TABLET PO ONE (15:02)
[2020-08-10] MEDS ORDERED: MAGNESIUM SULF 50% (8.12 MEQ/2 ML-1 GM VIAL) IVPB ONE (15:03)
[2020-08-10] MEDS: RIVAROXABAN 20 MG TABLET PO SCH (17:48)
[2020-08-10] MEDS: ATORVASTATIN CA 20 MG TABLET (FP) PO SCH (21:49)
[2020-08-10] MEDS: DOCUSATE SODIUM 100 MG CAPSULE (FP) PO SCH (21:52)
[2020-08-10] MEDS: MELATONIN 5 MG TABLETS PO SCH (21:52)
[2020-08-10] MEDS: traZODone HCL 50 MG TABLET (FP) PO SCH (21:52)
[2020-08-11] MEDS: THIAMINE HCL 100 MG TABLET (FP) PO SCH (10:19)
[2020-08-11] MEDS: CARVEDILOL 3.125 MG TABLET (FP) PO SCH ×2 (10:19→22:16)
[2020-08-11] MEDS: TAMSULOSIN HCL 0.4 MG CAP PO SCH (10:19)
[2020-08-11] MEDS: PANTOPRAZOLE 20 MG TABLET PO SCH (10:19)
[2020-08-11] MEDS: FUROSEMIDE 20 MG TABLET (FP) PO SCH (10:19)
[2020-08-11] MEDS: ASPIRIN 81 MG CHEWABLE TABLETS PO SCH (10:19)
[2020-08-11] MEDS: FOLIC ACID 1 MG TABLET (FP) PO SCH (10:19)
[2020-08-11] MEDS: hydrOXYzine PAMOATE 25 MG CAPSULE (FP) PO PRN ×2 (11:26→22:19)
[2020-08-11 17:18] LABS: BASO % 1.1 % (0-2.0); EOS % 2.6 % (0-4.5); HEMATOCRIT 38.2 % (35.4-49); HEMOGLOBIN 11.7 GM/dL (11.7-16.9); LYMPH % 29.4 % (8-40); MCH 21.8 pg (25.7-33.7); MCHC 30.6 g/dl (32.0-35.9); MEAN CELL VOLUME 71.2 fl (80-96); MEAN PLT VOLUME 9.5 fl (7.5-11.1); MONO % 11.8 % (3.8-10.2); NEUT % 55.1 % (42.8-82.8); PLATELET COUNT 202 K/MM3 (134-434); RBC 5.37 M/mm3 (4.00-5.60); RDW 16.7 % (11.9-15.9); WHITE BLOOD COUNT 5.2 K/mm3 (4.0-10.0)
[2020-08-11] MEDS: RIVAROXABAN 20 MG TABLET PO SCH (17:31)
[2020-08-11 17:42] LABS: ALBUMIN 2.8 g/dl (3.4-5.0); BLOOD UREA NITROGEN 18.8 mg/dL (7-18); CALCIUM 8.7 mg/dL (8.5-10.1)
[2020-08-11 17:45] LABS: CREATININE 1.2 mg/dL (0.55-1.3)
[2020-08-11 17:47] LABS: BILIRUBIN,TOTAL 0.9 mg/dL (0.2-1); TOT PROT 5.8 g/dl (6.4-8.2)
[2020-08-11 18:54] LABS: ANISOCYTOSIS 2+; MACROCYTOSIS 0; PLATELET ESTIMATE NORMAL; TARGET CELLS 1+; TEAR DROP CELLS 1+
[2020-08-11] MEDS: MELATONIN 5 MG TABLETS PO SCH (22:10)
[2020-08-11] MEDS: traZODone HCL 50 MG TABLET (FP) PO SCH (22:10)
[2020-08-11] MEDS: ATORVASTATIN CA 20 MG TABLET (FP) PO SCH (22:15)
[2020-08-11] MEDS: DOCUSATE SODIUM 100 MG CAPSULE (FP) PO SCH (22:17)
[2020-08-12] MEDS: TAMSULOSIN HCL 0.4 MG CAP PO SCH (09:32)
[2020-08-12] MEDS: FOLIC ACID 1 MG TABLET (FP) PO SCH (09:33)
[2020-08-12] MEDS: THIAMINE HCL 100 MG TABLET (FP) PO SCH (09:33)
[2020-08-12] MEDS: ASPIRIN 81 MG CHEWABLE TABLETS PO SCH (09:33)
[2020-08-12] MEDS: FUROSEMIDE 20 MG TABLET (FP) PO SCH (09:33)
[2020-08-12] MEDS: PANTOPRAZOLE 20 MG TABLET PO SCH (09:33)
[2020-08-12] MEDS: CARVEDILOL 3.125 MG TABLET (FP) PO SCH ×2 (09:33→21:36)
[2020-08-12] MEDS ORDERED: PT OWN MED DRAWER 7, Y5N ONE ×2 (10:43→21:36)
[2020-08-12] MEDS: hydrOXYzine PAMOATE 25 MG CAPSULE (FP) PO PRN ×2 (10:44→21:36)
[2020-08-12] MEDS: RIVAROXABAN 20 MG TABLET PO SCH (17:13)
[2020-08-12] MEDS: MELATONIN 5 MG TABLETS PO SCH (21:36)
[2020-08-12] MEDS: traZODone HCL 50 MG TABLET (FP) PO SCH (21:36)
[2020-08-12] MEDS: ATORVASTATIN CA 20 MG TABLET (FP) PO SCH (21:37)
[2020-08-12] MEDS: DOCUSATE SODIUM 100 MG CAPSULE (FP) PO SCH (21:37)
[2020-08-13 06:32] VITALS: PULSE 88; TEMP 98
[2020-08-13 08:09] VITALS: BP 104/75
[2020-08-13] MEDS: TAMSULOSIN HCL 0.4 MG CAP PO SCH (08:52)
[2020-08-13] MEDS: FOLIC ACID 1 MG TABLET (FP) PO SCH (09:00)
[2020-08-13] MEDS: THIAMINE HCL 100 MG TABLET (FP) PO SCH (09:00)
[2020-08-13] MEDS: FUROSEMIDE 20 MG TABLET (FP) PO SCH (09:00)
[2020-08-13] MEDS: ASPIRIN 81 MG CHEWABLE TABLETS PO SCH (09:00)
[2020-08-13] MEDS: CARVEDILOL 3.125 MG TABLET (FP) PO SCH (09:00)
[2020-08-13] MEDS: PANTOPRAZOLE 20 MG TABLET PO SCH (09:01)
== END 2020-08-13 12:36 | disposition home or self-care (01) | DRG 293 ==
LOC: JER 10:15 → JERBED 13:26 → J6WEST-2 08-08 03:19 → J4W 08-11 07:03
PROVIDERS: ADMIT Internal Medicine
DX: I11.0 Hypertensive heart disease with heart failure (principal); I50.23 Acute on chronic systolic (congestive) heart failure; I42.0 Dilated cardiomyopathy; I48.0 Paroxysmal atrial fibrillation; F10.10 Alcohol abuse, uncomplicated; F14.10 Cocaine abuse, uncomplicated; F12.10 Cannabis abuse, uncomplicated; F41.8 Other specified anxiety disorders; M16.10 Unilateral primary osteoarthritis, unspecified hip; F17.210 Nicotine dependence, cigarettes, uncomplicated; R97.20 Elevated prostate specific antigen [PSA]; I25.10 Atherosclerotic heart disease of native coronary artery without angina pectoris; R94.31 Abnormal electrocardiogram [ECG] [EKG]; Z95.810 Presence of automatic (implantable) cardiac defibrillator
CPT/HCPCS: 36415; 71045-TC-FY; 80053; 80061; 80307; 81003; 82550; 83036; 83721; 83735; 83880; 84100; 84443; 84484; 85025; 85027; 85610; 85730; 93005; 93010; 93306-TC; 99285-25; C9803; G0397; U0003; U0005

== ENCOUNTER 2023-03-13 13:33 | Inpatient (IN) | payer OTHER ==
[2023-03-13 14:59] VITALS: BMI 32.8
[2023-03-13] MEDS ORDERED: ALBUTEROL SO4 HFA INHALER IH PRN (16:07)
[2023-03-13] MEDS ORDERED: LOPERAMIDE HCL 2 MG CAPSULE PO PRN (20:09)
[2023-03-13] MEDS ORDERED: guaiFENesin 600 MG TABLET.ER (FP) PO PRN (20:09)
[2023-03-13] MEDS ORDERED: MAGNESIUM HYDROX 2400MG/30ML ORAL SUSPENSION 30 ML CUP PO PRN (20:09)
[2023-03-13] MEDS ORDERED: P-EPHED 60MG/TRIPROLIDI 2.5MG TABLET PO PRN (20:09)
[2023-03-13] MEDS ORDERED: NICOTINE POLACRILEX 2 MG GUM BUC PRN (20:09)
[2023-03-13] MEDS ORDERED: BENZOCAINE/MENTHOL (CHLORASEPTIC ) LOZENGE MM PRN (20:09)
[2023-03-13] MEDS ORDERED: POLYETHYLENE GLYCOL (HEALTHYLAX) 3350 17 GM PACKET PO PRN (20:09)
[2023-03-13] MEDS ORDERED: BENZONATATE 200 MG CAPSULE PO PRN (20:09)
[2023-03-13] MEDS ORDERED: ACETAMINOPHEN 325 MG TABLET (FP) PO PRN (20:09)
[2023-03-13] MEDS ORDERED: MAG HYDROX/AL HYDROX/SIMETH 30 ML UNIT-DOSE CUP PO PRN (20:09)
[2023-03-13] MEDS ORDERED: COLLOIDAL OATMEAL 1 BAR EACH TP PRN (20:09)
[2023-03-13] MEDS: THIAMINE HCL 100 MG TABLET (FP) PO SCH (21:51)
[2023-03-13] MEDS: MELATONIN 5 MG TABLETS PO SCH (21:51)
[2023-03-13] MEDS: APIXABAN 5 MG TABLET PO SCH (21:51)
[2023-03-13] MEDS: CARVEDILOL 3.125 MG TABLET (FP) PO SCH (21:51)
[2023-03-13] MEDS: ATORVASTATIN CA 40 MG TABLET (FP) PO SCH (21:51)
[2023-03-14] MEDS ORDERED: TUBERCULIN PPD 5 TU/0.1ML VIAL ID ONE ×2 (09:08→10:00)
[2023-03-14] MEDS: PRENATAL VITAMINS W/ FOLIC ACID TABLET (FP) PO SCH (09:41)
[2023-03-14] MEDS: CARVEDILOL 3.125 MG TABLET (FP) PO SCH ×2 (09:46→21:19)
[2023-03-14] MEDS: FOLIC ACID 1 MG TABLET (FP) PO SCH (09:46)
[2023-03-14] MEDS: APIXABAN 5 MG TABLET PO SCH ×2 (09:46→21:19)
[2023-03-14] MEDS: SACUBITRIL/VALSARTAN 97 MG-103 MG TABLET PO SCH (11:15)
[2023-03-14 12:09] LABS: POTASSIUM 3.7 mmol/L (3.5-5.1)
[2023-03-14 12:16] LABS: HEMATOCRIT 36.1 % (35.4-49); HEMOGLOBIN 11.5 GM/dL (11.7-16.9); MCH 21.8 pg (25.7-33.7); MCHC 31.8 g/dl (32.0-35.9); MEAN CELL VOLUME 68.6 fl (80-96); PLATELET COUNT 239 10^3/uL (134-434); RBC 5.26 M/mm3 (4.00-5.60); RDW 17.2 % (11.9-15.9); WHITE BLOOD COUNT 4.2 K/mm3 (4.0-10.0)
[2023-03-14 12:17] LABS: PH,URINE 6.5 (5.0-8.0); URINE APPEARANCE CLEAR; URINE BILIRUBIN NEGATIVE (NEGATIVE); URINE COLOR YELLOW; URINE GLUCOSE (UA) 3+ (NEGATIVE); URINE KETONE NEGATIVE (NEGATIVE); URINE LEUK ESTERASE NEGATIVE (NEGATIVE); URINE NITRITE NEGATIVE (NEGATIVE); URINE PROTEIN NEGATIVE (NEGATIVE)
[2023-03-14 12:22] LABS: ALBUMIN 3.2 g/dl (3.4-5.0); BLOOD UREA NITROGEN 13.5 mg/dL (7-18); CALCIUM 8.4 mg/dL (8.5-10.1)
[2023-03-14 12:25] LABS: CREATININE 0.9 mg/dL (0.55-1.3)
[2023-03-14 12:27] LABS: BILIRUBIN,TOTAL 0.5 mg/dL (0.2-1); TOT PROT 6.3 g/dl (6.4-8.2)
[2023-03-14] MEDS: THIAMINE HCL 100 MG TABLET (FP) PO SCH (21:19)
[2023-03-14] MEDS: ATORVASTATIN CA 40 MG TABLET (FP) PO SCH (21:19)
[2023-03-14] MEDS: MELATONIN 5 MG TABLETS PO SCH (21:19)
[2023-03-15] MEDS: PRENATAL VITAMINS W/ FOLIC ACID TABLET (FP) PO SCH (10:12)
[2023-03-15] MEDS: CARVEDILOL 3.125 MG TABLET (FP) PO SCH ×2 (10:12→21:09)
[2023-03-15] MEDS: SACUBITRIL/VALSARTAN 97 MG-103 MG TABLET PO SCH (10:12)
[2023-03-15] MEDS: FOLIC ACID 1 MG TABLET (FP) PO SCH (10:12)
[2023-03-15] MEDS: APIXABAN 5 MG TABLET PO SCH ×2 (10:12→21:09)
[2023-03-15] MEDS: MELATONIN 5 MG TABLETS PO SCH (21:09)
[2023-03-15] MEDS: ATORVASTATIN CA 40 MG TABLET (FP) PO SCH (21:09)
[2023-03-15] MEDS: THIAMINE HCL 100 MG TABLET (FP) PO SCH (21:09)
[2023-03-16] MEDS: APIXABAN 5 MG TABLET PO SCH ×2 (10:00→21:28)
[2023-03-16] MEDS: CARVEDILOL 3.125 MG TABLET (FP) PO SCH ×2 (10:00→21:28)
[2023-03-16] MEDS: FOLIC ACID 1 MG TABLET (FP) PO SCH (10:00)
[2023-03-16] MEDS: PRENATAL VITAMINS W/ FOLIC ACID TABLET (FP) PO SCH (10:01)
[2023-03-16] MEDS: SACUBITRIL/VALSARTAN 97 MG-103 MG TABLET PO SCH ×2 (10:01→21:28)
[2023-03-16] MEDS ORDERED: NALTREXONE HCL 50 MG TABLET PO ONE (11:30)
[2023-03-16 11:57] LABS: SYPHILIS W/ RPR CONF NON-REACTIVE (NONREACTIVE)
[2023-03-16] MEDS: metFORMIN HCL 500 MG TABLET (FP) PO SCH (16:39)
[2023-03-16] MEDS: INSULIN SLIDING SCALE (NOVOLOG) 1 VIAL SQ SCH (16:40)
[2023-03-16] MEDS: ATORVASTATIN CA 40 MG TABLET (FP) PO SCH (21:28)
[2023-03-16] MEDS: MELATONIN 5 MG TABLETS PO SCH (21:29)
[2023-03-16] MEDS: THIAMINE HCL 100 MG TABLET (FP) PO SCH (21:29)
[2023-03-17] MEDS: metFORMIN HCL 500 MG TABLET (FP) PO SCH ×2 (06:19→16:09)
[2023-03-17] MEDS: INSULIN SLIDING SCALE (NOVOLOG) 1 VIAL SQ SCH ×2 (06:20→16:10)
[2023-03-17] MEDS: SACUBITRIL/VALSARTAN 97 MG-103 MG TABLET PO SCH ×2 (10:04→21:11)
[2023-03-17] MEDS: CARVEDILOL 3.125 MG TABLET (FP) PO SCH ×2 (10:04→21:11)
[2023-03-17] MEDS: APIXABAN 5 MG TABLET PO SCH ×2 (10:04→21:11)
[2023-03-17] MEDS: PRENATAL VITAMINS W/ FOLIC ACID TABLET (FP) PO SCH (10:06)
[2023-03-17] MEDS: FOLIC ACID 1 MG TABLET (FP) PO SCH (10:06)
[2023-03-17] MEDS: NALTREXONE HCL 50 MG TABLET PO SCH (10:06)
[2023-03-17] MEDS: ATORVASTATIN CA 40 MG TABLET (FP) PO SCH (21:11)
[2023-03-17] MEDS: THIAMINE HCL 100 MG TABLET (FP) PO SCH (21:11)
[2023-03-17] MEDS: MELATONIN 5 MG TABLETS PO SCH (21:11)
[2023-03-18] MEDS: metFORMIN HCL 500 MG TABLET (FP) PO SCH ×2 (06:18→16:13)
[2023-03-18] MEDS: INSULIN SLIDING SCALE (NOVOLOG) 1 VIAL SQ SCH ×2 (06:21→16:13)
[2023-03-18] MEDS: CARVEDILOL 3.125 MG TABLET (FP) PO SCH ×2 (09:55→21:15)
[2023-03-18] MEDS: PRENATAL VITAMINS W/ FOLIC ACID TABLET (FP) PO SCH (09:55)
[2023-03-18] MEDS: FOLIC ACID 1 MG TABLET (FP) PO SCH (09:55)
[2023-03-18] MEDS: NALTREXONE HCL 50 MG TABLET PO SCH (09:55)
[2023-03-18] MEDS: SACUBITRIL/VALSARTAN 97 MG-103 MG TABLET PO SCH ×2 (09:55→21:15)
[2023-03-18] MEDS: APIXABAN 5 MG TABLET PO SCH ×2 (09:55→21:15)
[2023-03-18] MEDS: THIAMINE HCL 100 MG TABLET (FP) PO SCH (21:14)
[2023-03-18] MEDS: ATORVASTATIN CA 40 MG TABLET (FP) PO SCH (21:15)
[2023-03-18] MEDS: MELATONIN 5 MG TABLETS PO SCH (21:15)
[2023-03-19] MEDS: metFORMIN HCL 500 MG TABLET (FP) PO SCH ×2 (06:19→16:30)
[2023-03-19] MEDS: INSULIN SLIDING SCALE (NOVOLOG) 1 VIAL SQ SCH ×2 (06:21→16:31)
[2023-03-19] MEDS: SACUBITRIL/VALSARTAN 97 MG-103 MG TABLET PO SCH ×2 (10:21→21:08)
[2023-03-19] MEDS: FOLIC ACID 1 MG TABLET (FP) PO SCH (10:22)
[2023-03-19] MEDS: APIXABAN 5 MG TABLET PO SCH ×2 (10:22→21:09)
[2023-03-19] MEDS: CARVEDILOL 3.125 MG TABLET (FP) PO SCH ×2 (10:22→21:09)
[2023-03-19] MEDS: NALTREXONE HCL 50 MG TABLET PO SCH (10:22)
[2023-03-19] MEDS: PRENATAL VITAMINS W/ FOLIC ACID TABLET (FP) PO SCH (10:22)
[2023-03-19] MEDS: MELATONIN 5 MG TABLETS PO SCH (21:08)
[2023-03-19] MEDS: THIAMINE HCL 100 MG TABLET (FP) PO SCH (21:08)
[2023-03-19] MEDS: ATORVASTATIN CA 40 MG TABLET (FP) PO SCH (21:09)
[2023-03-19] MEDS: traZODone HCL 50 MG TABLET (FP) PO SCH (21:09)
[2023-03-20] MEDS: metFORMIN HCL 500 MG TABLET (FP) PO SCH ×2 (06:45→16:17)
[2023-03-20] MEDS: INSULIN SLIDING SCALE (NOVOLOG) 1 VIAL SQ SCH ×2 (06:46→16:17)
[2023-03-20] MEDS: PRENATAL VITAMINS W/ FOLIC ACID TABLET (FP) PO SCH (09:39)
[2023-03-20] MEDS: NALTREXONE HCL 50 MG TABLET PO SCH (09:40)
[2023-03-20] MEDS: FOLIC ACID 1 MG TABLET (FP) PO SCH (09:40)
[2023-03-20] MEDS: APIXABAN 5 MG TABLET PO SCH ×2 (09:40→21:24)
[2023-03-20] MEDS: SACUBITRIL/VALSARTAN 97 MG-103 MG TABLET PO SCH ×2 (09:41→21:25)
[2023-03-20] MEDS: CARVEDILOL 3.125 MG TABLET (FP) PO SCH ×2 (09:41→21:24)
[2023-03-20] MEDS: ATORVASTATIN CA 40 MG TABLET (FP) PO SCH (21:24)
[2023-03-20] MEDS: MELATONIN 5 MG TABLETS PO SCH (21:24)
[2023-03-20] MEDS: THIAMINE HCL 100 MG TABLET (FP) PO SCH (21:24)
[2023-03-20] MEDS: traZODone HCL 50 MG TABLET (FP) PO SCH (21:25)
[2023-03-21] MEDS: metFORMIN HCL 500 MG TABLET (FP) PO SCH ×2 (06:16→15:53)
[2023-03-21] MEDS: INSULIN SLIDING SCALE (NOVOLOG) 1 VIAL SQ SCH ×2 (06:19→15:53)
[2023-03-21] MEDS: PRENATAL VITAMINS W/ FOLIC ACID TABLET (FP) PO SCH (10:14)
[2023-03-21] MEDS: FOLIC ACID 1 MG TABLET (FP) PO SCH (10:15)
[2023-03-21] MEDS: SACUBITRIL/VALSARTAN 97 MG-103 MG TABLET PO SCH ×2 (10:15→21:17)
[2023-03-21] MEDS: APIXABAN 5 MG TABLET PO SCH ×2 (10:15→21:17)
[2023-03-21] MEDS: CARVEDILOL 3.125 MG TABLET (FP) PO SCH ×2 (10:15→21:18)
[2023-03-21] MEDS ORDERED: DIPHENOXYLATE 2.5/ATROPINE.025 1 COMBO TABLET PO PRN (11:21)
[2023-03-21] MEDS: LACTOBACILLUS ACIDOPHILUS 1 TABLET PO SCH (12:03)
[2023-03-21] MEDS: ATORVASTATIN CA 40 MG TABLET (FP) PO SCH (21:17)
[2023-03-21] MEDS: traZODone HCL 50 MG TABLET (FP) PO SCH (21:17)
[2023-03-21] MEDS: THIAMINE HCL 100 MG TABLET (FP) PO SCH (21:18)
[2023-03-21] MEDS: MELATONIN 5 MG TABLETS PO SCH (21:18)
[2023-03-22] MEDS: INSULIN SLIDING SCALE (NOVOLOG) 1 VIAL SQ SCH ×2 (06:28→17:17)
[2023-03-22] MEDS: metFORMIN HCL 500 MG TABLET (FP) PO SCH ×2 (06:28→16:19)
[2023-03-22] MEDS: FOLIC ACID 1 MG TABLET (FP) PO SCH (09:43)
[2023-03-22] MEDS: APIXABAN 5 MG TABLET PO SCH ×2 (09:43→21:19)
[2023-03-22] MEDS: LACTOBACILLUS ACIDOPHILUS 1 TABLET PO SCH (09:43)
[2023-03-22] MEDS: CARVEDILOL 3.125 MG TABLET (FP) PO SCH ×2 (09:44→21:19)
[2023-03-22] MEDS: SACUBITRIL/VALSARTAN 97 MG-103 MG TABLET PO SCH ×2 (09:44→21:19)
[2023-03-22] MEDS: PRENATAL VITAMINS W/ FOLIC ACID TABLET (FP) PO SCH (09:46)
[2023-03-22] MEDS: MELATONIN 5 MG TABLETS PO SCH (21:18)
[2023-03-22] MEDS: ATORVASTATIN CA 40 MG TABLET (FP) PO SCH (21:19)
[2023-03-22] MEDS: traZODone HCL 50 MG TABLET (FP) PO SCH (21:19)
[2023-03-22] MEDS: THIAMINE HCL 100 MG TABLET (FP) PO SCH (21:20)
[2023-03-23] MEDS: metFORMIN HCL 500 MG TABLET (FP) PO SCH (06:08)
[2023-03-23] MEDS: INSULIN SLIDING SCALE (NOVOLOG) 1 VIAL SQ SCH (06:11)
[2023-03-23 07:16] VITALS: BP 91/67; PULSE 79; RESP 17; TEMP 97.7
[2023-03-23] MEDS: PRENATAL VITAMINS W/ FOLIC ACID TABLET (FP) PO SCH (09:22)
[2023-03-23] MEDS: SACUBITRIL/VALSARTAN 97 MG-103 MG TABLET PO SCH (09:22)
[2023-03-23] MEDS: FOLIC ACID 1 MG TABLET (FP) PO SCH (09:22)
[2023-03-23] MEDS: APIXABAN 5 MG TABLET PO SCH (09:22)
[2023-03-23] MEDS: CARVEDILOL 3.125 MG TABLET (FP) PO SCH (09:22)
[2023-03-23] MEDS: LACTOBACILLUS ACIDOPHILUS 1 TABLET PO SCH (09:23)
== END 2023-03-23 09:25 | disposition home or self-care (01) | DRG 895 ==
LOC: YASAS 13:33 → Y3W 20:44
PROVIDERS: ADMIT Allergy & Immunology; ATTEND Psychiatry & Neurology Pain Medicine
PROC: HZ42ZZZ Group Counseling for Substance Abuse Treatment, Cognitive-Behavioral (ICD-10-PCS; principal; 2023-03-13)
DX: F10.20 Alcohol dependence, uncomplicated (principal); F14.20 Cocaine dependence, uncomplicated; F19.282 Other psychoactive substance dependence with psychoactive substance-induced sleep disorder; F25.9 Schizoaffective disorder, unspecified; F19.24 Other psychoactive substance dependence with psychoactive substance-induced mood disorder; I11.0 Hypertensive heart disease with heart failure; I50.9 Heart failure, unspecified; I48.91 Unspecified atrial fibrillation; Z79.01 Long term (current) use of anticoagulants; K21.9 Gastro-esophageal reflux disease without esophagitis; N40.0 Benign prostatic hyperplasia without lower urinary tract symptoms; E11.9 Type 2 diabetes mellitus without complications; Z79.84 Long term (current) use of oral hypoglycemic drugs; Z95.810 Presence of automatic (implantable) cardiac defibrillator
CPT/HCPCS: 36415; 80053; 81003; 82962; 85027; 86780; 86803; 87635; 93005; 93010